=== PATIENT | female | born 1950 | race Caucasian/White ===

== ENCOUNTER → 2022-01-08 13:01 | Outpatient (BNVA) | payer MEDICAID, SELFPAY | PROVIDERS: PCP Internal Medicine; Visit Provider Internal Medicine Rheumatology | DX: M75.81 Other shoulder lesions, right shoulder (principal); M75.82 Other shoulder lesions, left shoulder; E11.9 Type 2 diabetes mellitus without complications; Z96.651 Presence of right artificial knee joint | CPT/HCPCS: 20610; 99212 ==

== ENCOUNTER 2022-05-14 14:29 | Outpatient (REF) | payer MEDICAID, SELFPAY ==
--- NOTE | ~2022-05-14 | XR_ITS ---
EXAMINATION: XR knee RT 3V, XR knee LT 3V CLINICAL INFORMATION: Reason for Exam M75.81 - Other shoulder lesions, right shoulder COMPARISON: None. TECHNIQUE: 4 views of the bilateral knees XR/XR knee LT 3V FINDINGS/IMPRESSION: Right knee: Status post right knee arthroplasty without evidence of hardware complication. Left knee: Severe osteoarthritis with medial compartment narrowing with bone on bone apposition. There is narrowing of the lateral and patellofemoral compartments and tricompartmental osteophytes.
--- NOTE | ~2022-05-14 | XR_ITS ---
EXAMINATION: XR knee RT 3V, XR knee LT 3V CLINICAL INFORMATION: Reason for Exam M75.81 - Other shoulder lesions, right shoulder COMPARISON: None. TECHNIQUE: 4 views of the bilateral knees XR/XR knee RT 3V FINDINGS/IMPRESSION: Right knee: Status post right knee arthroplasty without evidence of hardware complication. Left knee: Severe osteoarthritis with medial compartment narrowing with bone on bone apposition. There is narrowing of the lateral and patellofemoral compartments and tricompartmental osteophytes.
--- NOTE | ~2022-05-14 | XR_ITS ---
EXAMINATION: XR shoulder LT min 2V, XR shoulder RT min 2V CLINICAL INFORMATION: Reason for Exam M75.81 - Other shoulder lesions, right/ left shoulder COMPARISON: None. TECHNIQUE: 4 views of the bilateral shoulders XR/XR shoulder RT min 2V FINDINGS/IMPRESSION: Left shoulder: No acute fracture or dislocation. Mild diffuse osteopenia. No suspicious osseous lesion. Partially visualized cardiac pacemaker device. Right shoulder: No acute fracture or dislocation. There is mild elevation of the humeral head relative to glenoid fossa which may reflect underlying rotator cuff pathology. Osteoarthritis of the acromioclavicular joint.
--- NOTE | ~2022-05-14 | XR_ITS ---
EXAMINATION: XR shoulder LT min 2V, XR shoulder RT min 2V CLINICAL INFORMATION: Reason for Exam M75.81 - Other shoulder lesions, right/ left shoulder COMPARISON: None. TECHNIQUE: 4 views of the bilateral shoulders XR/XR shoulder LT min 2V FINDINGS/IMPRESSION: Left shoulder: No acute fracture or dislocation. Mild diffuse osteopenia. No suspicious osseous lesion. Partially visualized cardiac pacemaker device. Right shoulder: No acute fracture or dislocation. There is mild elevation of the humeral head relative to glenoid fossa which may reflect underlying rotator cuff pathology. Osteoarthritis of the acromioclavicular joint.
== END 2022-05-14 14:30 | disposition home or self-care (01) ==
LOC: HO.XRAY 14:29
PROVIDERS: PCP Internal Medicine; Visit Provider Internal Medicine Rheumatology
DX: M75.81 Other shoulder lesions, right shoulder (principal); M75.82 Other shoulder lesions, left shoulder; M17.12 Unilateral primary osteoarthritis, left knee; E11.9 Type 2 diabetes mellitus without complications; Z96.651 Presence of right artificial knee joint
CPT/HCPCS: 20610; 73030; 73562; 99212

== ENCOUNTER → 2022-09-10 08:37 | Outpatient (BNVA) | payer MEDICAID, SELFPAY | PROVIDERS: PCP Internal Medicine; Visit Provider Internal Medicine Rheumatology | DX: M17.12 Unilateral primary osteoarthritis, left knee (principal); M75.81 Other shoulder lesions, right shoulder; M75.82 Other shoulder lesions, left shoulder; Z96.651 Presence of right artificial knee joint | CPT/HCPCS: 20610; 99212 ==

== ENCOUNTER → 2022-12-27 08:02 | Outpatient (BNVA) | payer MEDICAID, SELFPAY | PROVIDERS: PCP Internal Medicine; Visit Provider Internal Medicine Rheumatology | DX: M17.12 Unilateral primary osteoarthritis, left knee (principal); M81.0 Age-related osteoporosis without current pathological fracture; M75.81 Other shoulder lesions, right shoulder; M75.82 Other shoulder lesions, left shoulder; Z96.651 Presence of right artificial knee joint | CPT/HCPCS: 20610; 99212 ==

== ENCOUNTER 2023-04-18 08:02 | Outpatient (AMB) | payer MEDICAID, SELFPAY ==
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
[2023-04-18 08:30] VITALS: BP 112/58; PULSE 73; O2SAT 100; BMI 37.9
== END 2023-04-18 09:07 | disposition home or self-care (01) ==
PROVIDERS: Visit Provider Psychiatry & Neurology Neurology
DX: F03.90 Unspecified dementia, unspecified severity, without behavioral disturbance, psychotic disturbance, mood disturbance, and anxiety (principal); R44.3 Hallucinations, unspecified
CPT/HCPCS: 99204

== ENCOUNTER → 2023-04-18 08:02 | Outpatient (BNVA) | payer MEDICAID, SELFPAY | PROVIDERS: Visit Provider Psychiatry & Neurology Neurology ==

== ENCOUNTER 2023-06-10 15:19 | Outpatient (AMB) | payer MEDICAID, SELFPAY ==
[2023-06-10 15:31] VITALS: BP 134/82; PULSE 70; TEMP 36.1; O2SAT 95; BMI 38.2
--- NOTE | 2023-06-10 15:31 | MHC.OFFVIS ---
Intake Vital Signs 06/10/23 15:31 Height 5 ft 2 in Weight 208 lb 15.971 oz BMI 38.2 BP 134/82 Blood Pressure Location Lt brachial Position Sitting Pulse 70 Pulse Source Pulse Oximeter Temp 97 F Temp Source Skin Pulse Oximetry (%) 95 Oxygen Delivery Method Room Air Intake Visit Reasons: OA Intake Note: Patient presents today to follow up on left knee OA. Requesting Harvey shoulder injections and left knee injection. Hospice Nurse Practitioner Required: No Accompanied by: Daughter Allergies acetaminophen [From Percocet] Allergy (Unknown, Verified 06/10/23 15:35) Itching oxycodone [From Percocet] Allergy (Unknown, Verified 06/10/23 15:35) Itching morphine Allergy (Intermediate, Uncoded 06/10/23 15:35) itching oxycodone Allergy (Intermediate, Uncoded 06/10/23 15:35) Itching tramadol Allergy (Intermediate, Uncoded 06/10/23 15:35) Itching Medication List - Last Reconciled 06/10/23 by Yuniel Tsang MD alendronate 70 mg PO QWEEK atorvastatin 20 mg PO DAILY blood sugar diagnostic (FreeStyle Lite Strips) As directed cyanocobalamin (vitamin B-12) 100 mcg IM Q4W diclofenac sodium 1% (Arthritis Pain (diclofenac)) 2 grams topical QID ergocalciferol (vitamin D2) 1,250 mcg PO QWEEK estradiol 0.01%(0.1mg/gram) grams vaginal famotidine (Pepcid) 20 mg PO BID ferrous sulfate 325 mg PO DAILY gabapentin 300 mg PO TID hydrocodone-acetaminophen 5-325 mg 1 tab PO Q6H PRN hydroxyzine HCl 25 mg PO TID PRN indapamide 2.5 mg PO BEDTIME lactulose 20 grams PO TID lancets (FreeStyle Lancets) As directed linaclotide (Linzess) 290 mcg PO DAILY losartan 25 mg PO DAILY loteprednol etabonate 0.5% (Lotemax) 1 appl ophthalmic (eye) QPM memantine (Namenda XR) 7 mg PO DAILY multivitamin with folic acid 400 mcg (Daily-Nohemy (with folic acid)) 1 tab PO DAILY ondansetron HCl 4 mg PO Q8H PRN pioglitazone (Actos) 30 mg PO BID potassium chloride ER 10 mEq PO BID quetiapine 25 mg PO BEDTIME repaglinide 2 mg PO BID sertraline 100 mg PO DAILY tobramycin-dexamethasone 0.3-0.1 % (TobraDex) ophthalmic (eye) TID tobramycin-dexamethasone 0.3-0.1 % 1 drp ophthalmic (eye) TID HPI HPI Comments History of Present Illness Details The patient returns with her daughter who translates. They indicate the patient has had a good benefit with the corticosteroid injections in the subacromial spaces delivered back in December. In the last few weeks she has had return of shoulder pain bilaterally. Pain is worse when she lies on the shoulders at night or lifts her arms overhead. She also has a right total knee replacement that still hurts her. The left knee however hurts worse where she has known osteoarthritis. At her last visit she had also received a corticosteroid injection in that joint. The 3 injections did not resulted in any significant adverse effects so she wants to have another set of injections today. There has been no recent injury. She is on medicine for dementia. The daughter is the proxy so she wants to sign for the injections. The patient also has significant back pain believed due to osteoarthritis particularly in the lumbar region. She has had attempts with corticosteroid injections and what sounds like were injection to ablate nerves. Neither of those were helpful. The back pain also limits her mobility. The dementia makes it difficult for her to be encouraged to walk. [facility] Medical History Hallucinations Dementia Pacemaker Tendonitis of both rotator cuffs Hypertension CKD (chronic kidney disease) Type 2 diabetes mellitus Osteoarthritis of knee Surgical History History of back surgery History of total right knee replacement (TKR) Family History Father Lung cancer Son Hypertension Brother Prostate cancer Brother Lung cancer Brother Myocardial infarction Social History Household Members: Family Housing: House Are you a primary home care scheduler to a significant other at home: No Do you presently have visiting nurse or other home services: No 75 years or older and lives alone: No Alcohol intake: never Patient Tobacco Use Status: Never used Tobacco e-Cigarette/Vaping Use: Never Used service: No Current occupational status: retired Review of Systems Const Details: Negative for appetite change, weight change, fever, chills, malaise and fatigue Card Details: Negative chest pain, edema and syncope Resp Details: Negative for SOB, cough and wheezing GI Details: Negative indigestion/heartburn, nausea, abdominal pain, bowel changes, diarrhea, constipation and bloody stool. Endo Details: Negative for polyuria and polydypsia Oleg/Lymph Details: Negative for excessive bruising or bleeding. Physical Exam Vital Signs: Last Vital Signs Temp 97 F 06/10/23 15:31 Pulse 70 06/10/23 15:31 BP 134/82 06/10/23 15:31 Pulse Ox 95 06/10/23 15:31 Oxygen Delivery Method Room Air 06/10/23 15:31 BMI result Body Mass Index 38.2 APPEARANCE: Patient in no acute distress EXTREMITIES: No edema, no calf tenderness, normal peripheral pulses. JOINT EXAM:?? Cervical Spine:.? Mild pain with extremes of normal range of motion. Slight cervical muscle tenderness. Thoracic Spine:.? No scoliosis.? No tenderness on palpation. Lumbar Spine:.? Alignment normal.? Full range of motion with?mild pain.?no tenderness. Chest Wall:.? No tenderness, swelling, increased warmth or erythema. Hands:.? Normal pain-free range of motion.? There is some mild tenderness at the base of the thumbs but no swelling is appreciated.? Other joints have no without tenderness, swelling, increased warmth or erythema. Able to make a full fist and has a good environmental protection geologist strength. Wrists:.? Normal pain-free range of motion without tenderness, swelling, increased warmth or erythema. Elbows:. Normal pain-free range of motion without tenderness, swelling, increased warmth or erythema. Shoulders:.?? Right:? Mild pain with abduction at 150 degrees or with more than 20 degrees of internal or external rotation.? Mild anterior tenderness with possibly some abductor weakness.? There is no swelling, supraclavicular adenopathy or axillary adenopathy.? Left: Mild pain with extremes of normal range of motion. There is also mild anterior tenderness but no swelling. There is no weakness, supraclavicular adenopathy, or axillary adenopathy. Hips:? Full range of motion without pain. Hip bursa:.? No tenderness. Knees: Right:? Mild pain with range of motion.? There is a well-healed anterior scar from her knee replacement.?? This looks like just a scar.? There is mild medial and lateral tenderness but no soft tissue swelling, redness or warmth.? Left:? There is mild pain with more than 90 degrees flexion or full extension.? There is mild to moderate medial and mild lateral tenderness with mild patellofemoral crepitus.? No effusion, redness or warmth.? Office Procedures Joint Injection/Drain Joint Injection/Drain Primary Site: right shoulder Secondary Site: right shoulder Injected: 40 mg of, 80 mg of, Kenalog, with 3 mL of and 1% plain lidocaine Coding Details: With the patient's consent the left knee was prepped with ChloraPrep and alcohol. The skin was anesthetized with 2 cc of 1% lidocaine. The knee was then injected with 40 mg of triamcinolone and 1 cc of I % lidocaine. The patient tolerated the procedure with no immediate adverse effects. With the patient's consent the left shoulder was prepped with ChloraPrep and alcohol. Under a topical ethyl chloride spray the left subacromial space was injected with 40 mg of triamcinolone and 1 cc of 1% lidocaine. The patient tolerated the procedure without any acute adverse effects. The right shoulder was prepped ChloraPrep and alcohol. The subacromial space was injected with 40 mg of triamcinolone and 1 cc of lidocaine. Patient tolerated the procedure well no apparent immediate side effects. 28151 - Large joint Procedure code (CPT) selection complete Assessment & Plan Assessment & Plan (1) History of total right knee replacement (TKR): Comment: 2018 Code(s): Z96.651 - Presence of right artificial knee joint (2) Osteoarthritis of left knee: Code(s): M17.12 - Unilateral primary osteoarthritis, left knee (3) Tendonitis of both rotator cuffs: Code(s): M75.81 - Other shoulder lesions, right shoulder; M75.82 - Other shoulder lesions, left shoulder Plan The patient again appears to be symptomatic with the bilateral shoulder pain from rotator cuff tendinitis and osteoarthritis in the left knee. It is unclear why the replaced knee remains painful. In general of course she has significant obesity and she is very deconditioned so it is not too surprising that she is using a walker at home. With the patient's consent the left knee was prepped with ChloraPrep and alcohol. The skin was anesthetized with 2 cc of 1% lidocaine. The knee was then injected with 40 mg of triamcinolone and 1 cc of I % lidocaine. The patient tolerated the procedure with no immediate adverse effects. With the patient's consent the left shoulder was prepped with ChloraPrep and alcohol. Under a topical ethyl chloride spray the left subacromial space was injected with 40 mg of triamcinolone and 1 cc of 1% lidocaine. The patient tolerated the procedure without any acute adverse effects. The right shoulder was prepped ChloraPrep and alcohol. The subacromial space was injected with 40 mg of triamcinolone and 1 cc of lidocaine. Patient tolerated the procedure well no apparent immediate side effects. Hopefully these will continue to help her symptoms. We would plan a return visit in about 5 months. Orders: Orders AMB Joint Injection/Aspiration Today M17.12 - Unilateral primary osteoarthritis, left knee, M75.81 - Other shoulder lesions, right shoulder, M75.82 - Other shoulder lesions, left shoulder Coding Level of Care Code Est Pt Level 3 (68837) Diagnoses History of total right knee replacement (TKR) Z96.651 Osteoarthritis of left knee M17.12 Tendonitis of both rotator cuffs M75.81; M75.82 CPT Codes Coding - 27974 Large joint: 20935 - Large joint ([id number])
== END 2023-06-10 16:24 | disposition home or self-care (01) ==
PROVIDERS: PCP Internal Medicine; Visit Provider Internal Medicine Rheumatology
DX: M17.12 Unilateral primary osteoarthritis, left knee (principal); Z96.651 Presence of right artificial knee joint; M75.81 Other shoulder lesions, right shoulder; M75.82 Other shoulder lesions, left shoulder
CPT/HCPCS: 20610; 99214

== ENCOUNTER → 2023-06-10 15:19 | Outpatient (BNVA) | payer MEDICAID, SELFPAY | PROVIDERS: PCP Internal Medicine; Visit Provider Internal Medicine Rheumatology | DX: M75.81 Other shoulder lesions, right shoulder (principal); M75.82 Other shoulder lesions, left shoulder; M17.12 Unilateral primary osteoarthritis, left knee; Z96.651 Presence of right artificial knee joint | CPT/HCPCS: 20610; 99212 ==

== ENCOUNTER 2023-08-02 14:57 | Outpatient (AMB) | payer MEDICAID, SELFPAY ==
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
[2023-08-02 15:07] VITALS: BP 114/74; PULSE 76; RESP 16; BMI 38.4
== END 2023-08-02 16:04 | disposition home or self-care (01) ==
PROVIDERS: PCP Internal Medicine; Visit Provider Nurse Practitioner Family
DX: F03.90 Unspecified dementia, unspecified severity, without behavioral disturbance, psychotic disturbance, mood disturbance, and anxiety (principal); R44.3 Hallucinations, unspecified
CPT/HCPCS: 99214

== ENCOUNTER → 2023-08-02 14:57 | Outpatient (BNVA) | payer MEDICAID, SELFPAY | PROVIDERS: PCP Internal Medicine; Visit Provider Nurse Practitioner Family | DX: F03.90 Unspecified dementia, unspecified severity, without behavioral disturbance, psychotic disturbance, mood disturbance, and anxiety (principal); R44.3 Hallucinations, unspecified | CPT/HCPCS: 99212 ==

== ENCOUNTER 2023-10-25 09:02 | Outpatient (AMB) | payer MEDICAID, SELFPAY ==
--- NOTE | 2023-10-25 09:10 | MHC.OFFVIS ---
Intake Vital Signs 10/25/23 09:20 Height 5 ft 2 in Weight 205 lb 8 oz BMI 37.6 BP 112/70 Blood Pressure Location Lt brachial Position Sitting Pulse 68 Pulse Source Pulse Oximeter Pulse Oximetry (%) 100 Oxygen Delivery Method Room Air Intake Visit Reasons: Follow up/ Confirmed w/Daughter Intake Note: Patient presents for F/U. Right after eating pt. gets dizziness, light headed and painful headache. Stops eating because of it. Allergies oxycodone [From Percocet] Allergy (Unknown, Verified 10/25/23 09:19) Itching morphine Allergy (Intermediate, Uncoded 08/02/23 15:06) itching oxycodone Allergy (Intermediate, Uncoded 08/02/23 15:06) Itching tramadol Allergy (Intermediate, Uncoded 08/02/23 15:06) Itching HPI HPI Comments History of Present Illness Details 73 y/o Yoruba female comes for follow up of dementia and hallucinations. Pt's daughter helped for ROS. Pt's daughter reports that patient's hallucination has improved with seroquel 25 mg qHS. She still has visual hallucination, once or twice a week, sees spiders, cats and people talking. Pt reports new headache that started few weeks ago, the headache always starts when she eats something, and can last couple of hours or whole day. She has pressure headache, it is associated with dizziness. Denies light or sound sensitivity. Pt lives with her daughter and need publisher assistant for all ADLs. Her daughter also reports that patient's movements including her gait is very slow and she has mild hand tremors. She also has chronic low back pain and is sees [facility] pain management. Pt is not physically or socially active, she usually sitting in her chair all day. Pt's daughter states that patient is very weak to do any physical activities. Brain MRI report reviewed. No evidence of acute/subacute infarction, hemorrhage or mass effect. Scattered foci of nonspecific T2 signal abnormality in the supratentorial white matter and trace are most likely related to mild chronic microvascular ischemic changes. Pt does not sleep well, wakes up frequently at night. She also uses hydroxyzine 25 mg TID. She is not physically active, laying on her bed all day. [facility] Medical History Hallucinations Dementia Pacemaker Tendonitis of both rotator cuffs Hypertension CKD (chronic kidney disease) Type 2 diabetes mellitus Osteoarthritis of knee Surgical History History of back surgery History of total right knee replacement (TKR) Family History Father Lung cancer Son Hypertension Brother Prostate cancer Brother Lung cancer Brother Myocardial infarction Social History Household Members: Family Housing: House Are you a primary healthcare prof to a significant other at home: No Do you presently have visiting nurse or other home services: No 75 years or older and lives alone: No Alcohol intake: never Patient Tobacco Use Status: Never used Tobacco e-Cigarette/Vaping Use: Never Used service: No Current occupational status: retired Physical Exam Vital Signs: Last Vital Signs Pulse 68 10/25/23 09:20 BP 112/70 10/25/23 09:20 Pulse Ox 100 10/25/23 09:20 Oxygen Delivery Method Room Air 10/25/23 09:20 BMI result Body Mass Index 37.6 Const General: cooperative Nutritional Appearance: obese Neuro Other: Mild decreased blink, facial expression right UE 2 + cog wheel rigidty Bradykinesia Decreased FFM and foot taps kathrin No tremors Hypophonia General: moves all extremities Cranial nerves: Yes Facial sensation intact/muscles of mastication intact, Yes Bilaterally intact EOM present, Yes Nystagmus not present, Yes Normal facial strength present and Yes Symmetric palate elevation present Cognition (Neuro): abnormal cognition Gait exam (Neuro): Antalgic gait present and Other gait observations present (slow with walker) Motor exam (neuro): 5/5 motor strength present throughout Deep tendon reflexes (DTR's): Right triceps reflex intensity grade: 3+, Left triceps reflex intensity grade: 3+, Rt Biceps (C5, C6): 3+, Left biceps reflex intensity grade: 3+, Right brachioradialis reflex intensity grade: 3+, Left brachioradialis reflex intensity grade: 3+, Right patellar reflex intensity grade: 1+ and Left patellar reflex intensity grade: 1+ Coordination: [id number] test normal Assessment & Plan Assessment & Plan (1) Dementia: Comment: mixed, vascular Code(s): F03.90 - Unspecified dementia, unspecified severity, without behavioral disturbance, psychotic disturbance, mood disturbance, and anxiety (2) Hallucinations: Code(s): R44.3 - Hallucinations, unspecified (3) Headache: Code(s): R51.9 - Headache, unspecified Plan Continue to take Quetiapine 25mg qhs for hallucination. Advised patient to try melatonin 3 mg qHS to promote sleep. Continue to take Namenda XR 7 mg qd. Pt has pace maker and CKD. Advised patient to increase physical, cognitive and social activities. The headache can be associated with low blood pressure when she eats. Advised patient to try drink a glass of water or juice when she eats. Will check labs for reversible causes of fatigue, and weakness. Orders: Orders Vitamin B12 and Folate 10/25/23 E11.9 - Type 2 diabetes mellitus without complications, F03.90 - Unspecified dementia, unspecified severity, without behavioral disturbance, psychotic disturbance, mood disturbance, and anxiety, R41.89 - Other symptoms and signs involving cognitive functions and awareness, R44.3 - Hallucinations, unspecified, R51.9 - Headache, unspecified, R53.1 - Weakness Comprehensive Met. Panel 10/25/23 E11.9 - Type 2 diabetes mellitus without complications, F03.90 - Unspecified dementia, unspecified severity, without behavioral disturbance, psychotic disturbance, mood disturbance, and anxiety, R41.89 - Other symptoms and signs involving cognitive functions and awareness, R44.3 - Hallucinations, unspecified, R51.9 - Headache, unspecified, R53.1 - Weakness TSH reflex Free T4 10/25/23 E11.9 - Type 2 diabetes mellitus without complications, F03.90 - Unspecified dementia, unspecified severity, without behavioral disturbance, psychotic disturbance, mood disturbance, and anxiety, R41.89 - Other symptoms and signs involving cognitive functions and awareness, R44.3 - Hallucinations, unspecified, R51.9 - Headache, unspecified, R53.1 - Weakness Complete Blood Count Auto Diff 10/25/23 E11.9 - Type 2 diabetes mellitus without complications, F03.90 - Unspecified dementia, unspecified severity, without behavioral disturbance, psychotic disturbance, mood disturbance, and anxiety, R41.89 - Other symptoms and signs involving cognitive functions and awareness, R44.3 - Hallucinations, unspecified, R51.9 - Headache, unspecified, R53.1 - Weakness Vitamin D 25-OH (D2 and D3) 10/25/23 E11.9 - Type 2 diabetes mellitus without complications, F03.90 - Unspecified dementia, unspecified severity, without behavioral disturbance, psychotic disturbance, mood disturbance, and anxiety, R41.89 - Other symptoms and signs involving cognitive functions and awareness, R44.3 - Hallucinations, unspecified, R51.9 - Headache, unspecified, R53.1 - Weakness Medications: New riboflavin (vitamin B2) 400 mg PO DAILY 30 days 30 tabs 3RF riboflavin (vitamin B2) 400 mg PO DAILY 90 days 90 tabs 3RF magnesium oxide 400 mg PO DAILY 90 days 90 tabs 3RF magnesium oxide 400 mg PO DAILY 30 days 30 tabs 3RF Changed From memantine 7 mg PO DAILY 30 days 30 ea 2RF To memantine 7 mg PO DAILY 90 days 90 ea 2RF From melatonin 3 mg PO BEDTIME 30 days 30 tabs 2RF sleep To melatonin 3 mg PO BEDTIME 90 days 90 tabs 2RF sleep From quetiapine 25 mg PO BEDTIME 30 tabs 6RF To quetiapine 25 mg PO BEDTIME 90 days 90 tabs 6RF Coding Level of Care Code Est Pt Level 4 (21382) Diagnoses Dementia F03.90 Hallucinations R44.3 Headache R51.9
[2023-10-25 09:20] VITALS: BP 112/70; PULSE 68; O2SAT 100; BMI 37.6
== END 2023-10-25 09:58 | disposition home or self-care (01) ==
PROVIDERS: PCP Internal Medicine; Visit Provider Nurse Practitioner Family
DX: F03.90 Unspecified dementia, unspecified severity, without behavioral disturbance, psychotic disturbance, mood disturbance, and anxiety (principal); R44.3 Hallucinations, unspecified; R51.9 Headache, unspecified
CPT/HCPCS: 99214

== ENCOUNTER → 2023-10-25 09:02 | Outpatient (BNVA) | payer MEDICAID, SELFPAY | PROVIDERS: PCP Internal Medicine; Visit Provider Nurse Practitioner Family | DX: F03.90 Unspecified dementia, unspecified severity, without behavioral disturbance, psychotic disturbance, mood disturbance, and anxiety (principal); R44.3 Hallucinations, unspecified; R51.9 Headache, unspecified; R53.1 Weakness; Z79.899 Other long term (current) drug therapy | CPT/HCPCS: 99212 ==

== ENCOUNTER 2023-11-14 15:14 | Outpatient (AMB) | payer MEDICAID, SELFPAY ==
--- NOTE | 2023-11-14 15:17 | MHC.OFFVIS ---
Vital Signs 11/14/23 15:28 Height 5 ft 2 in Weight 197 lb 12.074 oz BMI 36.2 BP 106/62 Blood Pressure Location Rt brachial Position Sitting Pulse 68 Pulse Source Pulse Oximeter Pulse Oximetry (%) 95 Oxygen Delivery Method Room Air Intake Visit Reasons: OA Intake Note: Patient last seen by Dr Tsang on 06/10/23 presents today with daughter Goldie for follow up. Patient has pain in bl legs, knees and arms. Lots of body weakness, using walker at home, also dropping things. Requesting injections traveling to [place] end of November and return in February. States she would get cortisone injections Q6M with Dr Tsang Filling Carrier Required: No Accompanied by: Daughter Goldie Allergies oxycodone [From Percocet] Allergy (Unknown, Verified 11/14/23 15:24) Itching morphine Allergy (Intermediate, Uncoded 11/14/23 15:24) itching oxycodone Allergy (Intermediate, Uncoded 11/14/23 15:24) Itching tramadol Allergy (Intermediate, Uncoded 11/14/23 15:24) Itching Medication List - Last Reconciled 11/14/23 by Nani Cornelius MD alendronate 70 mg PO QWEEK amitriptyline 25 mg PO BEDTIME ammonium lactate 12% appl topical BID atorvastatin 40 mg PO DAILY blood sugar diagnostic (FreeStyle Lite Strips) As directed clotrimazole 1% appl topical BID cyanocobalamin (vitamin B-12) 100 mcg IM Q4W diclofenac sodium 1% (Arthritis Pain (diclofenac)) 2 grams topical QID ergocalciferol (vitamin D2) 1,250 mcg PO QWEEK famotidine (Pepcid) 20 mg PO BID ferrous sulfate 325 mg PO DAILY gabapentin 300 mg PO TID hydrocodone-acetaminophen 5-325 mg 1 tab PO Q6H PRN hydroxyzine HCl 25 mg PO TID PRN indapamide 2.5 mg PO BEDTIME lactulose 20 grams PO TID lancets (FreeStyle Lancets) As directed lidocaine 5% 1 patch topical DAILY linaclotide (Linzess) 290 mcg PO DAILY losartan 25 mg PO DAILY loteprednol etabonate 0.5% (Lotemax) 1 appl ophthalmic (eye) QPM magnesium oxide 400 mg PO DAILY 90 days melatonin 3 mg PO BEDTIME 90 days memantine 7 mg PO DAILY 90 days multivitamin with folic acid 400 mcg (Daily-Nohemy (with folic acid)) 1 tab PO DAILY ondansetron HCl 4 mg PO Q8H PRN pioglitazone (Actos) 30 mg PO BID potassium chloride ER 10 mEq PO BID quetiapine 25 mg PO BEDTIME 90 days repaglinide 2 mg PO BID riboflavin (vitamin B2) 400 mg PO DAILY 90 days sertraline 100 mg PO BEDTIME tobramycin-dexamethasone 0.3-0.1 % (TobraDex) ophthalmic (eye) TID tobramycin-dexamethasone 0.3-0.1 % 1 drp ophthalmic (eye) TID HPI Comments Details: 73-year-old female with generalized osteoarthritis, osteoporosis returns for follow-up. This is her 1st visit with me. She used to follow-up with Dr. Tsang. Patient's daughter is her proxy and does most of the interview on behalf of her mother. She states that she gets cortisone injections by Dr. Tsang every 6 months or so unusually provide 2-3 months relief. Most recent visit she had bilateral shoulder and left knee cortisone injection. Right knee is replaced. Daughter states that patient was diagnosed with osteoporosis last year and was started on alendronate briefly by Dr. Tsang. She stated however that given patient's dementia and possible poor compliance she preferred to have injections. She was evaluated by civil engineer land development at [place] and received 1 dose of Prolia in April of 2023. She states however that her insurance changed and [place] is unable to continue with the Prolia injections. She wanted to check whether we might be able to arrange for Prolia injections at [place]. She is also requesting central shoulder and left knee corticosteroid injections Most recent history by Dr. Tsang 05/2023: The patient returns with her daughter who translates. They indicate the patient has had a good benefit with the corticosteroid injections in the subacromial spaces delivered back in December. In the last few weeks she has had return of shoulder pain bilaterally. Pain is worse when she lies on the shoulders at night or lifts her arms overhead. She also has a right total knee replacement that still hurts her. The left knee however hurts worse where she has known osteoarthritis. At her last visit she had also received a corticosteroid injection in that joint. The 3 injections did not resulted in any significant adverse effects so she wants to have another set of injections today. There has been no recent injury. She is on medicine for dementia. The daughter is the proxy so she wants to sign for the injections. The patient also has significant back pain believed due to osteoarthritis particularly in the lumbar region. She has had attempts with corticosteroid injections and what sounds like were injection to ablate nerves. Neither of those were helpful. The back pain also limits her mobility. The dementia makes it difficult for her to be encouraged to walk. [facility] Medical History Hallucinations Dementia Pacemaker Tendonitis of both rotator cuffs Hypertension CKD (chronic kidney disease) Type 2 diabetes mellitus Osteoarthritis of knee Surgical History History of back surgery History of total right knee replacement (TKR) Family History Father Lung cancer Son Hypertension Brother Prostate cancer Brother Lung cancer Brother Myocardial infarction Social History Household Members: Family Housing: House Are you a primary career development counselor to a significant other at home: No Do you presently have visiting nurse or other home services: No 75 years or older and lives alone: No Alcohol intake: never Patient Tobacco Use Status: Never used Tobacco e-Cigarette/Vaping Use: Never Used service: No Current occupational status: retired [place] [facility] [place] arthralgias, Reports limited range of motion and Reports stiffness Physical Exam Vital Signs: Last Vital Signs Pulse 68 11/14/23 15:28 BP 106/62 11/14/23 15:28 Pulse Ox 95 11/14/23 15:28 Oxygen Delivery Method Room Air 11/14/23 15:28 BMI result Body Mass Index 36.2 Const General: cooperative, healthy appearing and comfortable Nutritional Appearance: obese morbidly obese Limitations: wheelchair HEENT Head: Yes normocephalic and Yes atraumatic Resp Effort & Inspection: normal respiratory effort and able to speak in complete sentences Skin General skin exam: no rashes or lesions noted Extrem Other: Osteoarthritic changes of both hands Mild bilateral shoulder pain with full abduction Bilateral shoulder crepitus Unable to fully extend left knee Left knee pain with full flexion and extension No knee swelling or tenderness Office Procedures Joint Injection/Drain Joint Injection/Drain Primary Site: right shoulder Secondary Site: left shoulder Prep: site was prepped using sterile technique and ethochloride spray was applied Injected: 40 mg of, Kenalog and other (2 mL of 1% lidocaine) Approach Used: other Procedure: The patient tolerated the procedure well Coding Details: With daughters consent the right shoulder was prepped with ChloraPrep and alcohol. Under a topical ethyl chloride spray the right subacromial space was injected with 40 mg of triamcinolone and 2 cc of 1% lidocaine. Then, the left shoulder was prepped with ChloraPrep and alcohol. Under a topical ethyl chloride spray the left subacromial space was injected with 40 mg of triamcinolone and 2 cc of 1% lidocaine. Then, the left knee was prepped with ChloraPrep and alcohol. The skin was anesthetized with 2 cc of 1% lidocaine. The knee was then injected with 40 mg of triamcinolone and 2 cc of I % lidocaine. The patient tolerated the procedures with no immediate adverse effects. - Large joint (Large joint x3) Procedure code (CPT) selection complete Results Reviewed Results Reviewed: DEXA 11/2022 L-spine T-score-1.1? Right femoral neck T-score -3.0 Assessment & Plan Assessment & Plan (1) Osteoarthritis of left knee: Code(s): M17.12 - Unilateral primary osteoarthritis, left knee Category: Medical Qualifiers: Osteoarthritis type: primary Qualified Code(s): M17.12 - Unilateral primary osteoarthritis, left knee Plan: This is a 73-year-old female with generalized osteoarthritis and osteoporosis who presents for follow-up. This is her 1st visit with me. She used to follow-up with Dr. Tsang. She presents with her daughter who is her healthcare proxy. Daughter states that she would get particular cortisone injections by Dr. Tsang periodically, around every 6 months. The usually provide 2-3 months relief. Today there is requesting bilateral shoulder and left knee injections. With daughters consent, bilateral shoulders and left knee was injected with Kenalog today. Follow-up in 6 months (2) History of total right knee replacement (TKR): Comment: 2017 Code(s): Z96.651 - Presence of right artificial knee joint Category: Surgical (3) Osteoarthritis of shoulders, bilateral: Code(s): M19.011 - Primary osteoarthritis, right shoulder; M19.012 - Primary osteoarthritis, left shoulder Category: Medical Qualifiers: Osteoarthritis type: primary Qualified Code(s): M19.011 - Primary osteoarthritis, right shoulder; M19.012 - Primary osteoarthritis, left shoulder Plan: As above (4) Osteoporosis: Comment: 11/2022 DEXA at [facility] T scores: Hip -3.0, LS spine -1.1 Code(s): M81.0 - Age-related osteoporosis without current pathological fracture Category: Medical Qualifiers: Osteoporosis type: age-related Presence of current pathological fracture: without current pathological fracture Qualified Code(s): M81.0 - Age-related osteoporosis without current pathological fracture Plan: Patient has history of osteoporosis. Due to patient's dementia and poor compliance, patient's daughter preferred that patient gets an injectable medication rather than alendronate. Patient was evaluated by civil engineer land development at [place] and received 1 dose of Prolia. Per daughter, after was patient's insurance changed and she was no longer able to get the Prolia injection done at [place]. She wonders whether Prolia injections can be arranged in our facility. We will look into authorization for Prolia. Plan I spent 55 minutes reviewing patient's chart, reviewing her [place] chart, evaluating patient, counseling patient and documenting in the chart Orders: Orders AMB Joint Injection/Aspiration Today M17.12 - Unilateral primary osteoarthritis, left knee, M19.011 - Primary osteoarthritis, right shoulder, M19.012 - Primary osteoarthritis, left shoulder
[2023-11-14 15:28] VITALS: BP 106/62; PULSE 68; O2SAT 95; BMI 36.2
== END 2023-11-14 16:09 | disposition home or self-care (01) ==
PROVIDERS: PCP Internal Medicine; Visit Provider Student in an Organized Health Care Education/Training Program
DX: M17.12 Unilateral primary osteoarthritis, left knee (principal); Z96.651 Presence of right artificial knee joint; M19.011 Primary osteoarthritis, right shoulder; M19.012 Primary osteoarthritis, left shoulder; M81.0 Age-related osteoporosis without current pathological fracture
CPT/HCPCS: 20610; 99215

== ENCOUNTER → 2023-11-14 | Outpatient (BNVA) | payer MEDICAID, SELFPAY | PROVIDERS: PCP Internal Medicine; Visit Provider Student in an Organized Health Care Education/Training Program | DX: M17.12 Unilateral primary osteoarthritis, left knee (principal); M81.0 Age-related osteoporosis without current pathological fracture; M19.011 Primary osteoarthritis, right shoulder; M19.012 Primary osteoarthritis, left shoulder; Z96.651 Presence of right artificial knee joint | CPT/HCPCS: 99202; 20610; 99212 ==

== ENCOUNTER 2023-12-18 12:40 | Outpatient (REF) | payer MEDICAID, SELFPAY ==
[2023-12-18 13:04] LABS: MANUAL DIFF FLAG NO
[2023-12-18 14:04] LABS: Basophils Percent Auto 0.1 % (0-2); Eosinophils Percent Auto 0.2 % (0-4); Hematocrit 38.3 % (37.0-47.0); Hemoglobin 12.8 g/dl (12.0-16.0); Imm Gran Abs Auto 0.05 X10*3/uL (0.00-0.03); Imm Gran Pct Auto 0.5 % (0.0-0.4); Lymphocytes Absolute Auto 2.4 X10*3/uL (1.2-4.9); Lymphocytes Percent Auto 24.3 % (20-40); Mean Corpuscular HGB Conc 33.4 g/dl (31.0-35.0); Mean Corpuscular Hemoglobin 31.1 pg (27.0-33.0); Mean Corpuscular Volume 93.2 fL (80.0-98.0); Mean Platelet Volume 10.1 fL (9.4-12.3); Monocytes Absolute Auto 0.5 X10*3/uL (0.1-1.2); Monocytes Percent Auto 4.6 % (2-11); Neutrophils Percent Auto 70.3 % (45-73); Platelet Count 254 X10*3/uL (160-400); Red Blood Count 4.11 X10*6/uL (4.20-5.50); Red Cell Distribution Width 12.9 % (11.0-16.0)
[2023-12-18 14:37] LABS: Anion Gap 11 (12-20); Blood Urea Nitrogen 29 mg/dL (9-16); Calcium 8.3 mg/dL (8.4-10.2); Carbon Dioxide 30 mmol/L (22-29); Chloride 102 mmol/L (96-108); Estimated Glomerular Filt Rate 52; Glucose Random 100 mg/dL (60-115); Potassium 3.8 mmol/L (3.3-5.1); Sodium 139 mmol/L (135-145)
[2023-12-18 14:57] LABS: Thyroid Stimulating Hormone 0.29 uIU/mL (0.32-4.0); Vitamin D 25-OH Total 18.7 ng/mL (>30)
[2023-12-18 15:05] LABS: Folate 9.6 ng/mL (> or = 4.0); Vitamin B12 551 pg/mL (200-900)
== END 2023-12-18 12:41 | disposition home or self-care (01) ==
LOC: HO.LAB 12:40
PROVIDERS: PCP Internal Medicine; Visit Provider Psychiatry & Neurology Neurology
DX: G30.9 Alzheimer's disease, unspecified (principal)
CPT/HCPCS: 36415; 80048; 82306; 82607; 82746; 84436; 84443; 85025

== ENCOUNTER 2024-03-23 10:13 | Outpatient (REF) | payer MEDICAID, SELFPAY ==
[2024-03-23 10:41] LABS: MANUAL DIFF FLAG NO
[2024-03-23 10:57] LABS: Basophils Absolute Auto 0.1 X10*3/uL (0.0-0.2); Eosinophils Absolute Auto 0.2 X10*3/uL (0.0-0.4); Eosinophils Percent Auto 2.3 % (0-4); Hematocrit 36.6 % (37.0-47.0); Hemoglobin 12.1 g/dl (12.0-16.0); Imm Gran Abs Auto 0.01 X10*3/uL (0.00-0.03); Imm Gran Pct Auto 0.1 % (0.0-0.4); Lymphocytes Absolute Auto 2.8 X10*3/uL (1.2-4.9); Mean Corpuscular HGB Conc 33.1 g/dl (31.0-35.0); Mean Corpuscular Hemoglobin 31.3 pg (27.0-33.0); Mean Corpuscular Volume 94.6 fL (80.0-98.0); Mean Platelet Volume 10.1 fL (9.4-12.3); Monocytes Absolute Auto 0.4 X10*3/uL (0.1-1.2); Monocytes Percent Auto 5.6 % (2-11); Neutrophils Absolute Auto 3.9 x10*3/uL (2.0-8.3); Platelet Count 241 X10*3/uL (160-400); Red Blood Count 3.87 X10*6/uL (4.20-5.50); Red Cell Distribution Width 12.6 % (11.0-16.0); White Blood Count 7.4 X10*3/uL (4.8-10.8)
[2024-03-23 11:46] LABS: TSH reflex Free T4 0.18 uIU/mL (0.32-4.0)
[2024-03-23 11:48] LABS: Alanine Aminotransferase 9 U/L (0-31); Albumin Level 3.6 g/dL (3.5-5.0); Alkaline Phosphatase 59 U/L (39-117); Anion Gap 12 (12-20); Aspartate Amino Transferase 15 U/L (5-31); Bilirubin Total 0.5 mg/dL (0.0-1.0); Blood Urea Nitrogen 11 mg/dL (9-16); Carbon Dioxide 27 mmol/L (22-29); Chloride 107 mmol/L (96-108); Estimated Glomerular Filt Rate 57; Glucose Random 89 mg/dL (60-115); Potassium 3.4 mmol/L (3.3-5.1); Sodium 143 mmol/L (135-145); Total Protein 6.7 g/dL (6.5-8.0); Vitamin D 25-OH Total 14.1 ng/mL (>30)
[2024-03-23 12:01] LABS: Folate 5.9 ng/mL (> or = 4.0); Vitamin B12 617 pg/mL (200-900)
[2024-03-23 12:16] LABS: Free T4 (Free Thyroxine) 1.21 ng/dL (0.71-1.85)
[2024-03-27 15:13] LABS: Vitamin D 25-OH, D2 17 ng/mL; Vitamin D 25-OH, D3 5 ng/mL; Vitamin D 25-OH, Total 22 ng/mL (30-100)
== END 2024-03-23 10:14 | disposition home or self-care (01) ==
LOC: HO.LAB 10:13
PROVIDERS: Nurse Practitioner Family; PCP Internal Medicine; Visit Provider Student in an Organized Health Care Education/Training Program
DX: F03.90 Unspecified dementia, unspecified severity, without behavioral disturbance, psychotic disturbance, mood disturbance, and anxiety (principal); E55.9 Vitamin D deficiency, unspecified; R44.3 Hallucinations, unspecified; R41.89 Other symptoms and signs involving cognitive functions and awareness; E11.9 Type 2 diabetes mellitus without complications; R53.1 Weakness; R51.9 Headache, unspecified
CPT/HCPCS: 36415; 80053; 82306; 82607; 82746; 84439; 84443; 85025

== ENCOUNTER 2024-03-24 13:09 | Outpatient (AMB) | payer MEDICAID, SELFPAY ==
--- NOTE | 2024-03-24 13:38 | AM.OFFVISNUR ---
Intake Visit Reasons: Prolia injection Allergies oxycodone [From Percocet] Allergy (Unknown, Verified 11/14/23 15:24) Itching morphine Allergy (Intermediate, Uncoded 11/14/23 15:24) itching oxycodone Allergy (Intermediate, Uncoded 11/14/23 15:24) Itching tramadol Allergy (Intermediate, Uncoded 11/14/23 15:24) Itching Office Meds Prolia 60 mg/mL subcutaneous syringe Performing Provider: Nani Cornelius MD Performing Location[place] [facility] [place] [facility] Administered by: Angelica Peterson RN on 03/24/24 13:38 Dose Route Admin Location Dispensed Lot Number Expiration Date [facility] [place] Protector Plate Attacher 60 mg subcut left upper extremity 1 mL [id number] 06/27/26 21743-698-60 AMGEN Comments: Daughter signed declination of film examiner services as she interpreted for visit. Consent form signed by daughter. Pt tolerated injection well and denies any previous problems with prolia injection. Assessment & Plan Assessment & Plan Orders: Orders AMB Denosumab Injection Practice Supplied Today M81.0 - Age-related osteoporosis without current pathological fracture Medications: New Prolia (denosumab) 60 mg subcut ONCE 1 mL 0RF NS M81.0 - Age-related osteoporosis without current pathological fracture
== END 2024-03-24 13:37 | disposition home or self-care (01) ==
PROVIDERS: PCP Internal Medicine
DX: M81.0 Age-related osteoporosis without current pathological fracture (principal)

== ENCOUNTER → 2024-03-24 13:09 | Outpatient (BNVA) | payer MEDICAID, SELFPAY | PROVIDERS: PCP Internal Medicine | DX: M81.0 Age-related osteoporosis without current pathological fracture (principal) | CPT/HCPCS: 96372; J0897 ==

== ENCOUNTER 2024-04-22 15:24 | Outpatient (AMB) | payer MEDICAID, SELFPAY ==
[2024-04-22 15:26] VITALS: BP 126/74; PULSE 73; O2SAT 98; BMI 35.8
--- NOTE | 2024-04-22 15:26 | A.OFFVIS_ITS ---
Vital Signs 04/22/24 15:26 Height 5 ft 2 in Weight 195 lb 12.328 oz BMI 35.8 BP 126/74 Blood Pressure Location Lt brachial Position Sitting Pulse 73 Pulse Source Pulse Oximeter Pulse Oximetry (%) 98 Oxygen Delivery Method Room Air Intake Visit Reasons: joint injection/osteoporosis Intake Note: Patient is here for injection in both shoulders and left knee. Railroad Car Checker Required: Yes Railroad Car Checker Services: Railroad Car Checker Offered & Declined Railroad Car Checker Name: Patient daughter is interpret Allergies oxycodone [From Percocet] Allergy (Unknown, Verified 11/14/23 15:24) Itching morphine Allergy (Intermediate, Uncoded 04/22/24 15:31) itching oxycodone Allergy (Intermediate, Uncoded 04/22/24 15:31) Itching tramadol Allergy (Intermediate, Uncoded 04/22/24 15:31) Itching Medication List - Last Reconciled 04/22/24 by Nani Cornelius MD amitriptyline 25 mg PO BEDTIME ammonium lactate 12% appl topical BID atorvastatin 40 mg PO DAILY blood sugar diagnostic (FreeStyle Lite Strips) As directed clotrimazole 1% appl topical BID cyanocobalamin (vitamin B-12) 100 mcg IM Q4W diclofenac sodium 1% (Arthritis Pain (diclofenac)) 2 grams topical QID ergocalciferol (vitamin D2) 1,250 mcg PO QWEEK famotidine (Pepcid) 20 mg PO BID ferrous sulfate 325 mg PO DAILY gabapentin 300 mg PO TID hydrocodone-acetaminophen 5-325 mg 1 tab PO Q6H PRN hydroxyzine HCl 25 mg PO TID PRN indapamide 2.5 mg PO BEDTIME lactulose 20 grams PO TID lancets (FreeStyle Lancets) As directed lidocaine 5% 1 patch topical DAILY linaclotide (Linzess) 290 mcg PO DAILY losartan 25 mg PO DAILY loteprednol etabonate 0.5% (Lotemax) 1 appl ophthalmic (eye) QPM magnesium oxide 400 mg PO DAILY 90 days melatonin 3 mg PO BEDTIME 90 days memantine 7 mg PO DAILY 90 days multivitamin with folic acid 400 mcg (Daily-Nohemy (with folic acid)) 1 tab PO DAILY ondansetron HCl 4 mg PO Q8H PRN pioglitazone (Actos) 30 mg PO BID potassium chloride ER 10 mEq PO BID quetiapine 25 mg PO BEDTIME 90 days repaglinide 2 mg PO BID riboflavin (vitamin B2) 400 mg PO DAILY 90 days sertraline 100 mg PO BEDTIME tobramycin-dexamethasone 0.3-0.1 % (TobraDex) ophthalmic (eye) TID tobramycin-dexamethasone 0.3-0.1 % 1 drp ophthalmic (eye) TID HPI Comments Details: 74-year-old female with generalized osteoarthritis, osteoporosis returns for follow-up. She presents with her daughter. She states that patient has not been feeling well. She has been having worsening bilateral shoulder pain. She states that the injections last approximately 4 months. She is requesting bilateral shoulder and left knee cortisone injections. She received the Prolia injection last month and it was uneventful. Most recent history by Dr. Tsang 05/2023: The patient returns with her daughter who translates. They indicate the patient has had a good benefit with the corticosteroid injections in the subacromial spaces delivered back in December. In the last few weeks she has had return of shoulder pain bilaterally. Pain is worse when she lies on the shoulders at night or lifts her arms overhead. She also has a right total knee replacement that still hurts her. The left knee however hurts worse where she has known osteoarthritis. At her last visit she had also received a corticosteroid injection in that joint. The 3 injections did not resulted in any significant adverse effects so she wants to have another set of injections today. There has been no recent injury. She is on medicine for dementia. The daughter is the proxy so she wants to sign for the injections. The patient also has significant back pain believed due to osteoarthritis particularly in the lumbar region. She has had attempts with corticosteroid injections and what sounds like were injection to ablate nerves. Neither of those were helpful. The back pain also limits her mobility. The dementia makes it difficult for her to be encouraged to walk. [facility] Medical History Hallucinations Dementia Pacemaker Tendonitis of both rotator cuffs Hypertension CKD (chronic kidney disease) Type 2 diabetes mellitus Osteoarthritis of knee Surgical History History of back surgery History of total right knee replacement (TKR) Family History Father Lung cancer Son Hypertension Brother Prostate cancer Brother Lung cancer Brother Myocardial infarction Social History Household Members: Family Housing: House Are you a primary med care manager to a significant other at home: No Do you presently have visiting nurse or other home services: No 75 years or older and lives alone: No Alcohol intake: never Patient Tobacco Use Status: Never used Tobacco e-Cigarette/Vaping Use: Never Used service: No Current occupational status: retired Review of Systems Musc Reports arthralgias, Reports limited range of motion and Reports stiffness Physical Exam Vital Signs: BMI result Body Mass Index 35.8 Const General: cooperative, healthy appearing and comfortable Nutritional Appearance: obese morbidly obese Limitations: wheelchair HEENT Head: Yes normocephalic and Yes atraumatic Resp Effort & Inspection: normal respiratory effort and able to speak in complete sentences Skin General skin exam: no rashes or lesions noted Extrem Other: Osteoarthritic changes of both hands Mild bilateral shoulder pain with full abduction Bilateral shoulder crepitus Unable to fully extend left knee Left knee pain with full flexion and extension No knee swelling or tenderness Office Procedures Joint Injection/Aspiration Joint Injection/Aspiration Details: Left knee Primary Site: right shoulder Secondary Site: left shoulder Coding Details: With the patient's consent the left shoulder was prepped with ChloraPrep and alcohol. Under a topical ethyl chloride spray the left subacromial space was injected with 40 mg of triamcinolone and 1 cc of 1% lidocaine. Then, The right shoulder was prepped ChloraPrep and alcohol. The subacromial space was injected with 40 mg of triamcinolone and 1 cc of lidocaine. Then, the left knee was prepped with ChloraPrep and alcohol. The skin was anesthetized with 2 cc of 1% lidocaine. The knee was then injected with 40 mg of triamcinolone and 1 cc of I % lidocaine. The patient tolerated all 3 procedures well with no apparent immediate adverse events - Large joint Procedure code (CPT) selection complete (Large joint x3) Results Reviewed Results Reviewed: DEXA 11/2022 L-spine T-score-1.1? Right femoral neck T-score -3.0 Assessment & Plan Assessment & Plan (1) Osteoarthritis of left knee: Code(s): M17.12 - Unilateral primary osteoarthritis, left knee Category: Medical Qualifiers: Osteoarthritis type: primary Qualified Code(s): M17.12 - Unilateral primary osteoarthritis, left knee Plan: This is a 73-year-old female with generalized osteoarthritis and osteoporosis who presents for follow-up. She presents with her daughter who is her healthcare proxy. Patient receives bilateral shoulder cortisone injections and left knee done injections periodically. She is s/p right knee replacement around 2018. Right knee continues to be painful. She is not interested in doing left knee replacement. She has history of right shoulder fracture years ago with poor healing. Patient was not interested in any shoulder surgery Today patient is requesting bilateral shoulder and left knee injection. With patient's consent bilateral shoulder and left knee intra-articular cortisone injections were done. Follow-up in 4 months (2) History of total right knee replacement (TKR): Comment: 2017 Code(s): Z96.651 - Presence of right artificial knee joint Category: Surgical (3) Osteoarthritis of shoulders, bilateral: Code(s): M19.011 - Primary osteoarthritis, right shoulder; M19.012 - Primary osteoarthritis, left shoulder Category: Medical Qualifiers: Osteoarthritis type: primary Qualified Code(s): M19.011 - Primary osteoarthritis, right shoulder; M19.012 - Primary osteoarthritis, left shoulder Plan: As above (4) Osteoporosis: Comment: 11/2022 DEXA at [facility] T scores: Hip -3.0, LS spine -1.1 Prolia started 07/2023 Code(s): M81.0 - Age-related osteoporosis without current pathological fracture Category: Medical Qualifiers: Osteoporosis type: age-related Presence of current pathological fracture: without current pathological fracture Qualified Code(s): M81.0 - Age- related osteoporosis without current pathological fracture Plan: Patient has history of osteoporosis. Due to patient's dementia and poor compliance, patient's daughter preferred that patient gets an injectable medication rather than alendronate. Received 2nd Prolia injection 02/2024. Injection was uneventful. Continue with Prolia injections q.6 months (5) Lumbar degenerative disc disease: Code(s): M51.36 - Other intervertebral disc degeneration, lumbar region Category: Medical Plan: She history of spinal osteoarthritis. Per daughter patient had a stimulator. The stimulator broke. Patient has been following up with pain management, she received multiple injections without relief. She would like another opinion. Referred patient to pain management at [facility] [place] Plan I spent 30 minutes reviewing patient's chart, evaluating patient, ordering diagnostic workup, counseling patient and documenting in the chart Orders: Orders AMB Joint Injection/Aspiration Today M17.12 - Unilateral primary osteoarthritis, left knee, M19.011 - Primary osteoarthritis, right shoulder, M19.012 - Primary osteoarthritis, left shoulder Vitamin D 25-OH Total 6 Months Z13.21 - Encounter for screening for nutritional disorder Basic Metabolic Panel 6 Months M81.0 - Age-related osteoporosis without current pathological fracture Referrals Pain Management Referral M51.36 - Other intervertebral disc degeneration, lumbar region Coding Level of Care Code Est Pt Level 4 (78089) Diagnoses Primary osteoarthritis of left knee M17.12 Osteoarthritis type: primary History of total right knee replacement (TKR) Z96.651 Primary osteoarthritis of both shoulders M19.011; M19.012 Osteoarthritis type: primary Age-related osteoporosis without current pathological fracture M81.0 Osteoporosis type: age-related Presence of current pathological fracture: without current pathological fracture Lumbar degenerative disc disease M51.36 CPT Codes Coding - 36976 Large joint: 62195 - Large joint ([id number])
== END 2024-04-22 16:06 | disposition home or self-care (01) ==
PROVIDERS: PCP Internal Medicine; Visit Provider Student in an Organized Health Care Education/Training Program
DX: M17.12 Unilateral primary osteoarthritis, left knee (principal); Z96.651 Presence of right artificial knee joint; M19.011 Primary osteoarthritis, right shoulder; M19.012 Primary osteoarthritis, left shoulder; M81.0 Age-related osteoporosis without current pathological fracture; M51.36 Other intervertebral disc degeneration, lumbar region
CPT/HCPCS: 20610; 99214

== ENCOUNTER → 2024-04-22 15:24 | Outpatient (BNVA) | payer MEDICAID, SELFPAY | PROVIDERS: PCP Internal Medicine; Visit Provider Student in an Organized Health Care Education/Training Program | DX: M81.0 Age-related osteoporosis without current pathological fracture (principal); M17.12 Unilateral primary osteoarthritis, left knee; M19.011 Primary osteoarthritis, right shoulder; M19.012 Primary osteoarthritis, left shoulder; M51.36 Other intervertebral disc degeneration, lumbar region; Z96.651 Presence of right artificial knee joint | CPT/HCPCS: 20610; 99212 ==

== ENCOUNTER 2024-05-18 14:00 | Outpatient (AMB) | payer MEDICAID, SELFPAY ==
--- NOTE | 2024-05-18 14:00 | A.OFFVIS_ITS ---
Vital Signs 05/18/24 14:05 Height 5 ft 2 in Weight 195 lb BMI 35.7 BP 112/60 Blood Pressure Location Lt brachial Position Sitting Pulse 88 Pulse Source Pulse Oximeter Pulse Oximetry (%) 98 Oxygen Delivery Method Room Air Intake Visit Reasons: 6 mo f/u Intake Note: Patient presents in office for a 6 mo fu-Dementia. Patients daughter states that it is getting harder for mom to communicate and understanding. She also has difficulty walking. Freelance Patternmaker Required: Yes Freelance Patternmaker Language: Haitian Freelance Patternmaker Services: Freelance Patternmaker Offered & Declined ([facility] turbine technician services refused, pt accompanied by daughter who will interpret. ) Freelance Patternmaker Name: Goldie- Daughter Information Interpreted: clinical only Accompanied by: Daughter Allergies oxycodone [From Percocet] Allergy (Unknown, Verified 11/14/23 15:24) Itching morphine Allergy (Intermediate, Uncoded 04/22/24 15:31) itching oxycodone Allergy (Intermediate, Uncoded 04/22/24 15:31) Itching tramadol Allergy (Intermediate, Uncoded 04/22/24 15:31) Itching Medication List - Last Reconciled 05/18/24 by Luz Becerril MD amitriptyline 25 mg PO BEDTIME ammonium lactate 12% appl topical BID atorvastatin 40 mg PO DAILY blood sugar diagnostic (FreeStyle Lite Strips) As directed bumetanide 1 mg PO Q OTHER DAY clotrimazole 1% appl topical BID cyanocobalamin (vitamin B-12) 100 mcg IM Q4W diclofenac sodium 1% (Arthritis Pain (diclofenac)) 2 grams topical QID ergocalciferol (vitamin D2) 1,250 mcg PO QWEEK famotidine (Pepcid) 20 mg PO BID ferrous sulfate 325 mg PO DAILY gabapentin 300 mg PO TID hydrocodone-acetaminophen 5-325 mg 1 tab PO Q6H PRN hydroxyzine HCl 25 mg PO TID PRN indapamide 2.5 mg PO BEDTIME lactulose 20 grams PO TID lancets (FreeStyle Lancets) As directed lidocaine 5% 1 patch topical DAILY linaclotide (Linzess) 290 mcg PO DAILY losartan 25 mg PO DAILY loteprednol etabonate 0.5% (Lotemax) 1 appl ophthalmic (eye) QPM magnesium oxide 400 mg PO DAILY 90 days melatonin 3 mg PO BEDTIME 90 days memantine 10 mg PO BID multivitamin with folic acid 400 mcg (Daily-Nohemy (with folic acid)) 1 tab PO DAILY ondansetron HCl 4 mg PO Q8H PRN pioglitazone (Actos) 30 mg PO BID potassium chloride ER 10 mEq PO BID quetiapine 25 mg PO BEDTIME 90 days repaglinide 2 mg PO BID riboflavin (vitamin B2) 400 mg PO DAILY 90 days sertraline 100 mg PO BEDTIME tobramycin-dexamethasone 0.3-0.1 % (TobraDex) ophthalmic (eye) TID tobramycin-dexamethasone 0.3-0.1 % 1 drp ophthalmic (eye) TID zolmitriptan take 1 tab at onset of headache; if no relief, may repeat 1 tab after at least 2 hrs; max = 2 tabs/24 hrs PO HPI Comments Details: 73 y/o Haitian female comes for follow up of dementia and hallucinations. Pt's daughter helped for ROS. Pt's daughter reports that patient's hallucination has improved with seroquel 25 mg qHS. She still has visual hallucination, once or twice a week, sees spiders, cats and people talking. she sleeps good. Pt reports new headache that started few weeks ago, the headache always starts when she eats something, and can last couple of hours or whole day. She has pressure headache, it is associated with dizziness. Denies light or sound sensitivity. Pt lives with her daughter and need investment sales assistant for all ADLs. Her daughter also reports that patient's movements including her gait is very slow and she has mild hand tremors. She also has chronic low back pain and is sees [facility] pain management. Pt is not physically or socially active, she usually sitting in her chair all day. Pt's daughter states that patient is very weak to do any physical activities. Brain MRI report reviewed. No evidence of acute/subacute infarction, hemorrhage or mass effect. Scattered foci of nonspecific T2 signal abnormality in the supratentorial white matter and trace are most likely related to mild chronic microvascular ischemic changes. [facility] Medical History Hallucinations Dementia Pacemaker Tendonitis of both rotator cuffs Hypertension CKD (chronic kidney disease) Type 2 diabetes mellitus Osteoarthritis of knee Surgical History History of back surgery History of total right knee replacement (TKR) Family History Father Lung cancer Son Hypertension Brother Prostate cancer Brother Lung cancer Brother Myocardial infarction Social History Household Members: Family Housing: House Are you a primary wound care coordinator to a significant other at home: No Do you presently have visiting nurse or other home services: No 75 years or older and lives alone: No Alcohol intake: never Patient Tobacco Use Status: Never used Tobacco e-Cigarette/Vaping Use: Never Used service: No Current occupational status: retired Physical Exam Vital Signs: Last Vital Signs Pulse 88 05/18/24 14:05 BP 112/60 05/18/24 14:05 Pulse Ox 98 05/18/24 14:05 Oxygen Delivery Method Room Air 05/18/24 14:05 BMI result Body Mass Index 35.7 Const General: cooperative Nutritional Appearance: obese Neuro Other: Mild decreased blink, facial expression right UE 2 + cog wheel rigidty Bradykinesia Decreased FFM and foot taps kathrin No tremors Hypophonia General: moves all extremities Cranial nerves: Yes Facial sensation intact/muscles of mastication intact, Yes Bilaterally intact EOM present, Yes Nystagmus not present, Yes Normal facial strength present and Yes Symmetric palate elevation present Cognition (Neuro): abnormal cognition Gait exam (Neuro): Antalgic gait present and Other gait observations present (slow with walker) Motor exam (neuro): 5/5 motor strength present throughout Coordination: [id number] test normal Assessment & Plan Assessment & Plan (1) Dementia: Comment: mixed, vascular Code(s): F03.90 - Unspecified dementia, unspecified severity, without behavioral disturbance, psychotic disturbance, mood disturbance, and anxiety Category: Medical (2) Hallucinations: Code(s): R44.3 - Hallucinations, unspecified Category: Medical (3) Headache: Code(s): R51.9 - Headache, unspecified Category: Medical Plan Increase Quetiapine 25mg 1 1/2 tabs qhs for hallucination. Advised patient to try melatonin 3 mg qHS to promote sleep. memantine 10mg bid Advised patient to increase physical, cognitive and social activities. The headache can be associated with low blood pressure when she eats. Advised patient to try drink a glass of water or juice when she eats. Medications: New sertraline 100 mg PO BEDTIME 30 tabs 6RF Changed From quetiapine 25 mg PO BEDTIME 90 days 90 tabs 6RF To quetiapine 1.5tabs qhs orally bedtime; 90 days 135 tabs 6RF Coding Level of Care Code Est Pt Level 4 (55972) Complex EM visit Add On G2211 Diagnoses Dementia F03.90 Hallucinations R44.3 Headache R51.9
[2024-05-18 14:05] VITALS: BP 112/60; PULSE 88; O2SAT 98; BMI 35.7
== END 2024-05-18 15:08 | disposition home or self-care (01) ==
PROVIDERS: PCP Internal Medicine; Visit Provider Psychiatry & Neurology Neurology
DX: F03.90 Unspecified dementia, unspecified severity, without behavioral disturbance, psychotic disturbance, mood disturbance, and anxiety (principal); R44.3 Hallucinations, unspecified; R51.9 Headache, unspecified
CPT/HCPCS: 99214

== ENCOUNTER → 2024-05-18 14:00 | Outpatient (BNVA) | payer MEDICAID, SELFPAY | PROVIDERS: PCP Internal Medicine; Visit Provider Psychiatry & Neurology Neurology | DX: F03.90 Unspecified dementia, unspecified severity, without behavioral disturbance, psychotic disturbance, mood disturbance, and anxiety (principal); R44.3 Hallucinations, unspecified; R51.9 Headache, unspecified | CPT/HCPCS: 99212 ==

== ENCOUNTER 2024-05-20 14:24 | Outpatient (AMB) | payer MEDICAID, SELFPAY ==
--- NOTE | 2024-05-20 14:25 | MHC.OFFVIS ---
Vital Signs 05/20/24 14:37 Height 5 ft 2 in Weight 194 lb 8 oz BMI 35.6 BP 132/68 Blood Pressure Location Lt brachial Position Sitting Respiration 16 Pulse 69 Pulse Source Pulse Oximeter Pulse Oximetry (%) 99 Oxygen Delivery Method Room Air Intake Visit Reasons: Intervertebral Disc Degeneration Intake Note: Patient comes in for initial visit was referred by [facility]. She was accompanied by daughter Goldie, Reports pain 03/07. Program Engineer Required: Yes Program Engineer Services: Program Engineer Offered & Declined Accompanied by: Daughter Allergies oxycodone [From Percocet] Allergy (Unknown, Verified 05/20/24 14:40) Itching morphine Allergy (Intermediate, Uncoded 04/22/24 15:31) itching oxycodone Allergy (Intermediate, Uncoded 04/22/24 15:31) Itching tramadol Allergy (Intermediate, Uncoded 04/22/24 15:31) Itching HPI Comments Details: Yg is very pleasant mildly demented 74 years old female who presents in my office with her daughter who is her caregiver as well as health care proxy. She is here with complains on multiple pain generators. She reports pain in the lower back pain in the projection of upper lumbar spine pain in the neck as well as pain in bilateral shoulders she has pain radiating down to her right lower extremity to the level of the knee but not below that level. She reports that her pain started many years ago. She was back in [place] operated on her lower back with performance of apparently L2 through L5 instrumental fusion. Unfortunately the patient did not tolerated procedure well, she developed infection with her hardware and hardware was removed leaving her to a long and difficult recovery. Eventually she was established with [employer] spinal cord stimulator in 2010 or maybe 2012 (the daughter is not sure about the date and the patient herself does not remember it.) When she immigrated to this country for unknown reason her spinal cord stimulator was removed in 2018, she was under care of [facility] pain management where she received multiple images currently not available to me. She received multiple steroid injections she has her daughter stated that this was epidural steroid injection every 3-4 months for the course of 4 years. Total of 16 or more epidurals. She reported that initially epidurals were helping her however lately lost their effectiveness. Daughter stated that spinal cord stimulator was helping her a lot and she wants implantation of the device back. She was having multiple sessions of physical therapy referred by [facility] pain management. Last 1 was 2 years ago and she received no help from physical therapy. She tried NSAIDs and muscle relaxants however those were not effective for control of her pain. Her past medical history significant for diabetes diet controlled and hypertension. 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 Her pacemaker cart copy is scanned into the chart. Her past surgical history is only significant for described above implantation of the hardware in 2006 and removal of the hardware 6 months after. She stayed in the hospital for 6 months to treat this condition. Social history she is retired individual and demented. She has hallucinations of auditory and visual nature however lately she started on medications by her psychiatrist Dr. Salinas and her sensations became better. [facility] Medical History Hallucinations Dementia Pacemaker Tendonitis of both rotator cuffs Hypertension CKD (chronic kidney disease) Type 2 diabetes mellitus Osteoarthritis of knee Surgical History History of back surgery History of total right knee replacement (TKR) Family History Father Lung cancer Son Hypertension Brother Prostate cancer Brother Lung cancer Brother Myocardial infarction Social History Household Members: Family Housing: House Are you a primary career placement specialist to a significant other at home: No Do you presently have visiting nurse or other home services: No 75 years or older and lives alone: No Alcohol intake: never Patient Tobacco Use Status: Never used Tobacco e-Cigarette/Vaping Use: Never Used service: No Current occupational status: retired Review of Systems Const All systems reviewed & are unremarkable except as noted in HPI and below Physical Exam Vital Signs: Last Vital Signs Pulse 69 05/20/24 14:37 Resp 16 05/20/24 14:37 BP 132/68 05/20/24 14:37 Pulse Ox 99 05/20/24 14:37 Oxygen Delivery Method Room Air 05/20/24 14:37 BMI result Body Mass Index 35.6 Const General: cooperative Nutritional Appearance: obese Limitations: wheelchair HEENT Head: Yes normocephalic and Yes atraumatic Resp Effort & Inspection: normal respiratory effort and able to speak in complete sentences Skin General skin exam: no rashes or lesions noted Neuro Other: Mild decreased blink, facial expression right UE 2 + cog wheel rigidty Bradykinesia Decreased FFM and foot taps kathrin No tremors Hypophonia General: moves all extremities Cranial nerves: Yes Facial sensation intact/muscles of mastication intact, Yes Bilaterally intact EOM present, Yes Nystagmus not present, Yes Normal facial strength present and Yes Symmetric palate elevation present Cognition (Neuro): abnormal cognition Gait exam (Neuro): Antalgic gait present and Other gait observations present (slow with walker) Motor exam (neuro): 5/5 motor strength present throughout Coordination: [id number] test normal Extrem Other: Osteoarthritic changes of both hands Mild bilateral shoulder pain with full abduction Bilateral shoulder crepitus Unable to fully extend left knee Left knee pain with full flexion and extension No knee swelling or tenderness Assessment & Plan Assessment & Plan (1) Lumbar degenerative disc disease: Code(s): M51.36 - Other intervertebral disc degeneration, lumbar region Category: Medical (2) Osteoarthritis of shoulders, bilateral: Code(s): M19.011 - Primary osteoarthritis, right shoulder; M19.012 - Primary osteoarthritis, left shoulder Category: Medical Qualifiers: Osteoarthritis type: primary Qualified Code(s): M19.011 - Primary osteoarthritis, right shoulder; M19.012 - Primary osteoarthritis, left shoulder (3) Dementia: Comment: mixed, vascular Code(s): F03.90 - Unspecified dementia, unspecified severity, without behavioral disturbance, psychotic disturbance, mood disturbance, and anxiety Category: Medical (4) Postlaminectomy syndrome of lumbar region: Code(s): M96.1 - Postlaminectomy syndrome, not elsewhere classified Category: Medical (5) Chronic pain syndrome: Code(s): G89.4 - Chronic pain syndrome Category: Medical (6) Cognitive impairment: Comment: probable Alzheimer's Code(s): R41.89 - Other symptoms and signs involving cognitive functions and awareness Category: Medical Plan It is very hard to make a decision in this case the patient is not understanding Indonesian and it is hard for me to assess how deep her dementia is. She has a psychiatrist which prescribes her medications and treat her for dementia. If this Doctor will agree to perform the assessment of this patient and give us decision whether or not she would be a good candidate for the trial and implantation of spinal cord stimulator I am willing to go for a trial with this patient. It will be [employer] SCS. Unfortunately our [facility] does not have Polish speaking providers or Polish gas or water meter installer. They refused to make an assessment in this case. At the same time I informed the daughter of the patient that even if she would be approved for the neuromodulation from psychological standpoint it could be very difficult to establish care for this patient. She had extensive surgery from L2 through L5 and then removal of hardware. Most likely she has extensive epidural adhesions in this area. She also has a history of implantation and then removal of spinal cord stimulator leads or paddle, the nature of the procedure is unknown to me and it is impossible to establish whether or not it was epidural leads and not the paddle. Possibility exists that epidural space will never be reached with this patient's procedures. I requested [employer] inbound customer service representative to gather information about this patient. If it was surgically implanted SCS then it would be impossible to do a trial with epidural leads. In theory if she is approved from psychological standpoint pain pump could be considered but today we did not discuss this option because her daughter is very focused on reestablishment of [employer] SCS. Patient Instructions: I here by testify that I spent 60 minutes in conversation with this patient as well as evaluation of prior records of this patient as well as [facility] and requesting this patient history to be explored and deliver it to us. Coding Level of Care Code New Pt Level 5 (56130) Diagnoses Lumbar degenerative disc disease M51.36 Primary osteoarthritis of both shoulders M19.011; M19.012 Osteoarthritis type: primary Dementia F03.90 Postlaminectomy syndrome of lumbar region M96.1 Chronic pain syndrome G89.4 Cognitive impairment R41.89
[2024-05-20 14:37] VITALS: BP 132/68; PULSE 69; RESP 16; O2SAT 99; BMI 35.6
== END 2024-05-20 15:25 | disposition home or self-care (01) ==
PROVIDERS: PCP Internal Medicine; Referring Provider Student in an Organized Health Care Education/Training Program; Visit Provider Anesthesiology
DX: M51.369 Other intervertebral disc degeneration, lumbar region without mention of lumbar back pain or lower extremity pain (principal); M19.011 Primary osteoarthritis, right shoulder; M19.012 Primary osteoarthritis, left shoulder; F03.90 Unspecified dementia, unspecified severity, without behavioral disturbance, psychotic disturbance, mood disturbance, and anxiety; M96.1 Postlaminectomy syndrome, not elsewhere classified; G89.4 Chronic pain syndrome; R41.89 Other symptoms and signs involving cognitive functions and awareness
CPT/HCPCS: 99205

== ENCOUNTER → 2024-05-20 14:24 | Outpatient (BNVA) | payer MEDICAID, SELFPAY | PROVIDERS: PCP Internal Medicine; Referring Provider Student in an Organized Health Care Education/Training Program; Visit Provider Anesthesiology | DX: M51.360 Other intervertebral disc degeneration, lumbar region with discogenic back pain only (principal); M19.011 Primary osteoarthritis, right shoulder; M19.012 Primary osteoarthritis, left shoulder; M96.1 Postlaminectomy syndrome, not elsewhere classified; F03.90 Unspecified dementia, unspecified severity, without behavioral disturbance, psychotic disturbance, mood disturbance, and anxiety; R41.89 Other symptoms and signs involving cognitive functions and awareness; G89.4 Chronic pain syndrome | CPT/HCPCS: 99202 ==

== ENCOUNTER 2024-08-12 15:25 | Outpatient (AMB) | payer MEDICAID, SELFPAY ==
[2024-08-12 15:26] VITALS: BP 124/78; PULSE 74; O2SAT 99
--- NOTE | 2024-08-12 15:26 | MHC.OFFVIS ---
Vital Signs 08/12/24 15:26 Height 5 ft 2 in BP 124/78 Blood Pressure Location Rt brachial Position Sitting Pulse 74 Pulse Source Pulse Oximeter Pulse Oximetry (%) 99 Oxygen Delivery Method Room Air Intake Visit Reasons: 2m follow up/immigration forms Intake Note: Patient presents for 2 month follow up Allergies oxycodone [From Percocet] Allergy (Unknown, Verified 08/12/24 15:30) Itching morphine Allergy (Intermediate, Uncoded 08/12/24 15:30) itching oxycodone Allergy (Intermediate, Uncoded 08/12/24 15:30) Itching tramadol Allergy (Intermediate, Uncoded 08/12/24 15:30) Itching Medication List - Last Reconciled 08/12/24 by Sachin Chau PA-C ammonium lactate 12% appl topical BID atorvastatin 40 mg PO DAILY blood sugar diagnostic (FreeStyle Lite Strips) As directed bumetanide 1 mg PO Q OTHER DAY cholecalciferol (vitamin D3) 50 mcg PO QAM clotrimazole 1% appl topical BID cyanocobalamin (vitamin B-12) 100 mcg IM Q4W diclofenac sodium 1% (Arthritis Pain (diclofenac)) 2 grams topical QID ergocalciferol (vitamin D2) 1,250 mcg PO QWEEK famotidine (Pepcid) 20 mg PO BID ferrous sulfate 325 mg PO DAILY gabapentin 300 mg PO TID hydrocodone-acetaminophen 5-325 mg 1 tab PO Q6H PRN hydroxyzine HCl 25 mg PO TID PRN indapamide 2.5 mg PO BEDTIME lactulose 20 grams PO TID lancets (FreeStyle Lancets) As directed lidocaine 5% 1 patch topical DAILY linaclotide (Linzess) 290 mcg PO DAILY lorazepam 0.5 mg PO ONCE PRN losartan 25 mg PO DAILY loteprednol etabonate 0.5% (Lotemax) 1 appl ophthalmic (eye) QPM magnesium oxide 400 mg PO DAILY 90 days melatonin 3 mg PO BEDTIME 90 days memantine 10 mg PO BID multivitamin with folic acid 400 mcg (Daily-Nohemy (with folic acid)) 1 tab PO DAILY ondansetron HCl 4 mg PO Q8H PRN pioglitazone (Actos) 30 mg PO BID potassium chloride ER 10 mEq PO BID quetiapine 1.5tabs qhs orally bedtime; 90 days repaglinide 2 mg PO BID riboflavin (vitamin B2) 400 mg PO DAILY 90 days sertraline 100 mg PO BEDTIME tobramycin-dexamethasone 0.3-0.1 % (TobraDex) ophthalmic (eye) TID tobramycin-dexamethasone 0.3-0.1 % 1 drp ophthalmic (eye) TID zolmitriptan take 1 tab at onset of headache; if no relief, may repeat 1 tab after at least 2 hrs; max = 2 tabs/24 hrs PO HPI Comments Details: 74 y/o female comes for follow up of Cognitive Decline. Pt's daughter Goldie helps with history, d/t language barrier. She still has visual hallucination, at night, sees dogs, cats and woman talking. She gets agitated and starts to scream at the cat who runs under the sofa or as it runs outside of the front door of their home. She sleeps well when she takes her Seroquel. She has headaches always starts when she eats something, last couple of hours or whole day. She has pressure headache, it is associated with dizziness. Denies photophobia/ phonophobia. Pt lives with her daughter and need greenhouse assistant for all ADLs. Daughter states that patient's movements including gait is very slow and tremulous, as if she will fall due to being off balance. She also has chronic low back pain and is followed by [facility] pain management. She is not physically active, does not engage in any activities, she sits in bed all day watching TV or Facebook. She would like to do some activities but gets frustrated d/t pain. MRI Reviewed Jul 2023: No evidence of acute/subacute infarction, hemorrhage or mass effect. Scattered foci of nonspecific T2 signal abnormality in the supratentorial white matter and trace are most likely related to mild chronic microvascular ischemic changes, and loss of volume. Will send for MRI w/ Neuro[facility], measure volumes of brain atrophy and comparison. MMSE can not complete due to language barrier. Labs D/ B12/ Iron/ TSH is low 02/2024 Contramol- Medicine has hydrocodein and tramadol, +analgesic in one. [facility] Medical History Hallucinations Dementia Pacemaker Tendonitis of both rotator cuffs Hypertension CKD (chronic kidney disease) Type 2 diabetes mellitus Osteoarthritis of knee Surgical History History of back surgery History of total right knee replacement (TKR) Family History Father Lung cancer Son Hypertension Brother Prostate cancer Brother Lung cancer Brother Myocardial infarction Social History Household Members: Family Housing: House Are you a primary caregiver assisted living to a significant other at home: No Do you presently have visiting nurse or other home services: No 75 years or older and lives alone: No Alcohol intake: never Patient Tobacco Use Status: Never used Tobacco e-Cigarette/Vaping Use: Never Used service: No Current occupational status: retired Review of Systems Const All systems reviewed & are unremarkable except as noted in HPI and below Physical Exam Vital Signs: Last Vital Signs Pulse 74 08/12/24 15:26 BP 124/78 08/12/24 15:26 Pulse Ox 99 08/12/24 15:26 Oxygen Delivery Method Room Air 08/12/24 15:26 Micronesian Speaking, cooperative, with daughter who relays history. Const General: cooperative, no acute distress and anxious Nutritional Appearance: average body habitus Orientation/consciousness: patient oriented x3 HEENT Face and sinus: Yes normal facial exam and Yes face symmetric Teeth and gingiva: other (Tremor of the tongue) Eyes Pupils: Equal, round and reactive pupils present Resp Effort & Inspection: normal respiratory effort and able to speak in complete sentences Neuro General: patient oriented x3 and moves all extremities Cranial nerves: Yes CN's II-XII intact bilaterally, Yes Facial sensation intact/muscles of mastication intact, Yes Equal, round and reactive pupils present, Yes Normal accommodation reflex present, Yes Bilaterally intact EOM present, Yes Nystagmus not present, Yes Normal facial strength present, Yes Midline tongue present, Yes Ability to bilaterally rotate head present (Limited ROM to the L>R) and Yes Ability to bilaterally elevate shoulders present Gait exam (Neuro): Assistive device used and Other gait observations present (Wheelchair bound, uses walker to ambulate at home.) Motor exam (neuro): Normal motor muscle tone present throughout, Abnormal motor strength present (3/5 upper and lower extremity), Pronator motor function present, Tremors during motor activity present (UE bilaterally into the R. hand more pronounced.) and Motor abnormalites present Sensory Exam: Upper extremity sensory exam abnormal Deep tendon reflexes (DTR's): Right triceps reflex intensity grade: 2+, Left triceps reflex intensity grade: 2+, Rt Biceps (C5, C6): 2+, Left biceps reflex intensity grade: 2+, Right brachioradialis reflex intensity grade: 2+ and Left brachioradialis reflex intensity grade: 2+ Coordination: rapid alternating movements of the distal lower extremity normal (unable to follow/ slowed hand movements and slowed fine motor coordination) Psych Appearance: well kempt Speech and movement: Slowed movement present (Neuro) and Restless speech present Affect: normal affect Attitude: cooperative Insight: Fair insight present (Psych) Judgement: Fair judgement present (Psych) Results Reviewed Results Reviewed: MRI 2023 Labs 02/2024 Medication list - Patient Education BEERS critieria in Elderly home bound - Wheelchair patients Assessment & Plan Assessment & Plan (1) Headache: Code(s): R51.9 - Headache, unspecified Category: Medical Qualifiers: Headache type: cluster Headache chronicity pattern: chronic headache Intractability: intractable Qualified Code(s): G44.021 - Chronic cluster headache, intractable (2) Cognitive impairment: Comment: probable Alzheimer's Code(s): R41.89 - Other symptoms and signs involving cognitive functions and awareness Category: Medical (3) Dementia: Comment: mixed, vascular Code(s): F03.90 - Unspecified dementia, unspecified severity, without behavioral disturbance, psychotic disturbance, mood disturbance, and anxiety Category: Medical Qualifiers: Dementia type: unspecified type Dementia severity: moderate Dementia behavioral or psychological symptom: with agitation Qualified Code(s): F03.B11 - Unspecified dementia, moderate, with agitation (4) Cognitive impairment: Comment: probable Alzheimer's Code(s): R41.89 - Other symptoms and signs involving cognitive functions and awareness Category: Medical (5) Dementia: Comment: mixed, vascular Code(s): F03.90 - Unspecified dementia, unspecified severity, without behavioral disturbance, psychotic disturbance, mood disturbance, and anxiety Category: Medical Qualifiers: Dementia type: vascular dementia Dementia severity: moderate Dementia behavioral or psychological symptom: with agitation Qualified Code(s): F01.B11 - Vascular dementia, moderate, with agitation (6) Hallucinations: Code(s): R44.3 - Hallucinations, unspecified Category: Medical (7) Hallucinations: Code(s): R44.3 - Hallucinations, unspecified Category: Medical Plan Lewy Body? Vascular? Alzheimers? Dementia with Hallucinations -Will send for MRI w/ [facility], at [facility] d/t pacemaker in situ, evaluate volumes of white matter atrophy and comparison with old MRI (Lorazepam 0.5mg for MRI procedure at [facility]) may take one additional dose for anxiety, 2 (0.5mg) tablets provided. MMSE can not complete due to language barrier. Anxiety: Continue taking Sertraline 100mg PO at bedtime Hallucinations Continue taking Seroquel (Quietapine 25mg PO at bedtime) for Hallucinations, night terrors. PT Physical Therapy to engage patient in stretching and walking for 10 min daily or as tolerable. Labs CBC/ CMP D/ [id number]/ MMA/ Homocystein Ferritin/ TSH is low 02/2024?, she is taking D, f/u. Patient education provided for good blood pressure control, ischemic changes d/t microvascular changes seen in MRI Jul 2023. Contramol? 100mg this RX has a combination of Tramadol, analgesic for pain management, patient provided med. Headaches May take one tablet of Zolmitriptan as needed, during the onset of headaches, you may take one more tablet in 4 hours for migraine prevention. F/U in 3 months. Orders: Orders MR brain wo/w con w neuroquant Today F0.90 - Unspecified dementia, unspecified severity, without behavioral disturbance, psychotic disturbance, mood disturbance, and anxiety, R41.89 - Other symptoms and signs involving cognitive functions and awareness Comprehensive Met. Panel Today F03.90 - Unspecified dementia, unspecified severity, without behavioral disturbance, psychotic disturbance, mood disturbance, and anxiety, R44.3 - Hallucinations, unspecified, R51.9 - Headache, unspecified Vitamin D 25-OH Total Today F03.90 - Unspecified dementia, unspecified severity, without behavioral disturbance, psychotic disturbance, mood disturbance, and anxiety, R51.9 - Headache, unspecified IRON PROFILE Today F0.90 - Unspecified dementia, unspecified severity, without behavioral disturbance, psychotic disturbance, mood disturbance, and anxiety, R41.89 - Other symptoms and signs involving cognitive functions and awareness, R51.9 - Headache, unspecified PT Evaluation and Treatment Today M51.36 - Other intervertebral disc degeneration, lumbar region Ferritin Today F03.90 - Unspecified dementia, unspecified severity, without behavioral disturbance, psychotic disturbance, mood disturbance, and anxiety, R44.3 - Hallucinations, unspecified, R51.9 - Headache, unspecified Complete Blood Count no Diff Today F03.90 - Unspecified dementia, unspecified severity, without behavioral disturbance, psychotic disturbance, mood disturbance, and anxiety, R44.3 - Hallucinations, unspecified, R51.9 - Headache, unspecified Homocysteine Today F03.90 - Unspecified dementia, unspecified severity, without behavioral disturbance, psychotic disturbance, mood disturbance, and anxiety, R44.3 - Hallucinations, unspecified, R51.9 - Headache, unspecified Vitamin B12 and Folate Today F0.90 - Unspecified dementia, unspecified severity, without behavioral disturbance, psychotic disturbance, mood disturbance, and anxiety, R51.9 - Headache, unspecified TSH reflex Free T4 Today F0. - Unspecified dementia, unspecified severity, without behavioral disturbance, psychotic disturbance, mood disturbance, and anxiety, F09 - Unspecified mental disorder due to known physiological condition, R51.9 - Headache, unspecified Methylmalonic Acid Today F0.90 - Unspecified dementia, unspecified severity, without behavioral disturbance, psychotic disturbance, mood disturbance, and anxiety, R51.9 - Headache, unspecified Medications: New zolmitriptan take 1 tab at onset of headache; if no relief, may repeat 1 tab after at least 2 hrs; max = 2 tabs/24 hrs PO 30 tabs 2RF R51.9 - Headache, unspecified lorazepam Patient is claustrophobic, has a pacemaker, please administer one tablet, 0.5mg PO for MRI procedure. MRI [facility] - comparison MRI 0.5 mg PO ONCE PRN 2 tabs 0RF MRI procedure F0. - Unspecified dementia, unspecified severity, without behavioral disturbance, psychotic disturbance, mood disturbance, and anxiety, R41.89 - Other symptoms and signs involving cognitive functions and awareness Refilled sertraline 100 mg PO BEDTIME 30 tabs 6RF Coding Level of Care Code Est Pt Level 4 (42503) Complex EM visit Add On G2211 Diagnoses Intractable chronic cluster headache G44.021 Headache type: cluster Headache chronicity pattern: chronic headache Intractability: intractable Cognitive impairment R41.89 Moderate dementia with agitation, unspecified dementia type F03.B11 Dementia type: unspecified type Dementia severity: moderate Dementia behavioral or psychological symptom: with agitation Hallucinations R44.3 Time Spent (min) 45 Comment Worsening Dementia
== END 2024-08-12 16:27 | disposition home or self-care (01) ==
PROVIDERS: PCP Internal Medicine; Visit Provider Physician Assistant Medical
DX: G44.021 Chronic cluster headache, intractable (principal); R41.89 Other symptoms and signs involving cognitive functions and awareness; F03.B11 Unspecified dementia, moderate, with agitation; R44.3 Hallucinations, unspecified; F01.B11 Vascular dementia, moderate, with agitation
CPT/HCPCS: 99214

== ENCOUNTER → 2024-08-12 15:25 | Outpatient (BNVA) | payer MEDICAID, SELFPAY | PROVIDERS: PCP Internal Medicine; Visit Provider Physician Assistant Medical | DX: G44.021 Chronic cluster headache, intractable (principal); R41.89 Other symptoms and signs involving cognitive functions and awareness; F01.B11 Vascular dementia, moderate, with agitation; R44.3 Hallucinations, unspecified | CPT/HCPCS: 99212 ==

== ENCOUNTER 2024-09-10 14:53 | Outpatient (AMB) | payer MEDICAID, SELFPAY ==
--- OUTSIDE RECORDS SUMMARY | 2024-09-10 14:55 | XMS_ITS | Clinical Summary ---
Author Organization [facility] Address [address] [place] [address] Care Team Providers Care Hris Manager Name Role Phone Shilpa Jeffries Primary Care Provide r Allergies Active Allergy Reactions Criticality Noted Date Comments Morphine Rash 09/27/2022 Oxycodone Dermatitis 09/27/2022 Tramadol-Acetaminophen Rash 09/27/2022 Medications amitriptyline (ELAVIL) 25 mg tablet Take 25 mg by mouth. 2 Active atorvastatin (LIPITOR) 20 mg tablet Take 20 mg by mouth once a day. 2 Active Freestyle Lite test strips USE TO TEST TWICE A DAY 3 Active diclofenac (VOLTAREN) 1% gel APPLY TO AFFECTED AREA TWICE A DAY 3 Active ergocalciferol (VITAMIN D2) 1,250 mcg (50,000 unit) capsule Take 50,000 Units by mouth once a week. 2 Active estradioL (ESTRACE) 0.01 % (0.1 mg/gram) vaginal cream PLEASE SEE ATTACHED FOR DETAILED DIRECTIONS 3 Active famotidine (PEPCID) 20 mg tablet Take 20 mg by mouth 2 times a day. 3 Active ferrous sulfate 325 mg (65 mg iron) tablet Take 325 mg by mouth. 3 Active gabapentin (NEURONTIN) 300 mg capsule Take 300 mg by mouth 3 times a day. 2 Active HYDROcodone-acet aminophen (NORCO) 5-325 mg tablet Take 1 tablet by mouth. 3 Active hydrOXYzine HCL (ATARAX) 25 mg tablet Take 25 mg by mouth every 6 hours as needed. 2 Active Linzess 290 mcg capsule Take 1 capsule by mouth once a day. 3 Active losartan (COZAAR) 25 mg tablet Take 25 mg by mouth once a day. 3 Active Lotemax 0.5 % ointment SMARTSI.25 Inch(es) Left Eye Every Evening 2 Active Daily-Nohemy, with folic acid, tablet Take 1 tablet by mouth once a day. 3 Active ondansetron (ZOFRAN) 4 mg tablet Take 4 mg by mouth. 2 Active sertraline (ZOLOFT) 25 mg tablet Take 25 mg by mouth once a day. 3 Active SUMAtriptan (IMITREX) 50 mg tablet SMARTSI Tablet(s) By Mouth Every 2 Weeks PRN 3 Active captopriL (CAPOTEN) 25 mg tablet Take 25 mg by mouth 3 times a day. 2 Active Flowflex COVID-19 Ag Home Test kit USE DIRECTED 2 Active Cequa 0.09 % dropperette 1 drop 2 times a day. 2 Active ibuprofen (MOTRIN) 600 mg tablet Take 600 mg by mouth 3 times a day as needed. 3 Active indapamide (LOZOL) 2.5 mg tablet Take 2.5 mg by mouth. 2 Active Freestyle lancets 28 gauge SMARTSI stick Topical Twice Daily 3 Active lisinopriL (PRINIVIL,ZESTRI L) 10 mg tablet Take 10 mg by mouth once a day. 2 Active pioglitazone (ACTOS) 30 mg tablet Take 30 mg by mouth 2 times a day. 2 Active Tobradex ophthalmic ointment SMARTSI sparingly In Eye(s) 3 Times Daily 2 Active Social History Tobacco Use Types Packs/Day Years Used Date Smoking Tobacco: Never Assessed Comments Unknown Sex and Gender Information Value Date Recorded Sex Assigned at Female 11/26/2022 1:13 PM EDT Legal Sex Female 2:53 PM EST Gender Identity Female 11/26/2022 1:13 PM EDT Sexual Orientation Straight 11/26/2022 1: 13 PM EDT Last Filed Vital Signs Vital Sign Reading Time Taken Comments Blood Pressure 126/80 09/27/2022 10:44 AM EST Pulse 70 09/27/2022 10:44 AM EST Temperature - - Respiratory Rate 18 09/27/2022 10:44 AM EST Oxygen Saturation 99% 09/27/2022 10:44 AM EST Inhaled Oxygen Concentration - - Weight - - Height - - Body Mass Index - - Plan of Treatment Health Maintenance Due Date Last Done Comments Hepatitis C Screening 1950 DTaP,Tdap,and Td Vaccines (1 - Tdap) 01/26/1970 Zoster Vaccines (1 of 2) 01/26/1998 RSV Vaccine (60+ years old and patients) (1 - 1-dose 75+ series) 01/26/2023 COVID-19 Vaccine ( - season) 2024 09/15/2021, 12/14/2020, 11/23/2020 Influenza Vaccine (#1) 2024 , 05/06/2020, 07/20/2019, Additional history exists Alcohol/Substance Use Screening 07/29/2024 Depression Screening and Follow-Up 07/29/2024 Health Care Proxy Review 07/29/2024 Social Drivers of Health Annual Screening 07/29/2024 Pneumococcal Vaccine: 50+ Years Completed 06/17/2017, 01/10/2017 Osteoporosis Screening Completed 11/29/2022 Hepatitis B Vaccines Aged Out No long er eligible based on patient's age to complete this topic Procedures * Due to [place] QVIVO law, this organization might not be sharing negative HIV tests. Procedure Name Priority Date/Time Associated Diagnosis Comments DEXA BONE DENSITY AXIAL Routine 11/29/2022 2:46 PM EDT Age-related osteoporosis with current pathological fracture, sequela from Last 3 Months or Most Recently Relevant to Health Maintenance Results * Due to [place] QVIVO law, this organization might not be sharing negative HIV tests. * Dexa bone density Axial (11/29/2022 2:46 PM EDT) Anatomical Region Laterality Modality Hip, L-spine Bone Densitometr y 11/30/2022 12:4 6 PM EDT Impressions 11/30/2022 12:47 PM EDT This patient has osteoporosis. Consider bone health evaluation and management by Endocrinology or Rheumatology. Thank you for the courtesy of this referral. If this radiology report contains a blank impression section, it is an incomplete radiology report. ??Please contact the interpreting radiologist or applicable radiology division as soon as possible to obtain the completed interpretation. ? Workstation ID: [id number] Narrative 11/30/2022 12:47 PM EDT EXAM: ??BONE MINERAL DENSITY INDICATION: Osteoporosis M80.00XS - I10 - Age-related osteoporosis with current pathological fracture, unspecified site, sequela PROCEDURE: ??The bone mineral density (BMD) of the spine and proximal right femur was determined using an external X-ray source(Hologic). SITE: [facility] FINDINGS: L1-L4: ??BMD 0.93gm/cm2 ?? T-Score -1.1 ?Z-score: 1.3 Femoral neck: ??BMD 0.52gm/cm2 ?? T-Score -3 ?Z-score: -0.9 The World Health Organization (WHO) defines osteoporosis (as studied in post-menopausal women) as a T value of (-)2.5 or less at any site. ??Osteopenia is defined by a T value between (-)1.1 and (-)2.4. In general, it is recommended that patients receive approximately 1000 mg of calcium daily, either from dairy products or supplements (including multiple vitamin). Patients should consider supplementing with vitamin D. Vitamin D recommendations should be discussed with Health Care Provider and measurement of vitamin D levels should be considered. Careful weight-bearing exercise is also useful in maintaining bone mass and to help protect against falls. Resulting Agency Comment [id number] Procedure Note Jerod Kwan MD - 11/30/2022 EXAM: BONE MINERAL DENSITY INDICATION: Osteoporosis M80.00XS - I10 - Age-related osteoporosis withcurrent pathological fracture, unspecified site, sequela PROCEDURE: The bone mineral density (BMD) of the spine and proximal rightfemur was determined using an external X-ray source(Hologic). SITE: [place] FINDINGS: L1-L4: BMD 0.93gm/cm2 T-Score -1.1 Z-score: 1.3 Femoral neck: BMD 0.52gm/cm2 T-Score -3 Z-score: -0.9 The World Health Organization (WHO) defines osteoporosis (as studied inpost-menopausal women) as a T value of (-)2.5 or less at any site.Osteopenia is defined by a T value between (-)1.1 and (-)2.4. In general, it is recommended that patients receive approximately 1000 mgof calcium daily, either from dairy products or supplements (includingmultiple vitamin). Patients should consider supplementing with vitamin D.Vitamin D recommendations should be discussed with Health Care Providerand measurement of vitamin D levels should be considered. Carefulweight-bearing exercise is also useful in maintaining bone mass and tohelp protect against falls. IMPRESSION: This patient has osteoporosis. Consider bone health evaluation and management by Endocrinology orRheumatology. Thank you for the courtesy of this referral. If this radiology report contains a blank impression section, it is anincomplete radiology report. Please contact the interpreting radiologistor applicable radiology division as soon as possible to obtain thecompleted interpretation. Workstation ID: [id number] Ricky Wynn MD IMG DXA PROCEDURES Final Resu lt from Last 3 Months or Most Recently Relevant to Health Maintenance Insurance [facility] [place] [address] Care Teams Hris Manager Relationship Specialty Start Date End Date Shilpa Jeffries PCP - General Internal Medicine 09/20/22
--- OUTSIDE RECORDS SUMMARY | 2024-09-10 14:55 | XMS_ITS | Encounter Summary ---
Author Organization [facility] [place] [address] Care Team Providers Care Cotton Stomper Name Role Phone Shilpa Jeffries MD Primary Care Prov ider Encounter Details Date Type Department Care Team (Late Contact Info) Description 08/17/[address] [phone] Anaya Philip MA Social History Tobacco Use Types Packs/Day Years Used Date Smoking Tobacco: Never Smokeless Tobacco: Never Alcohol Use Standard Drinks/Week Comments No 0 (1 standard drink = 0.6 oz pur e alcohol) Comments Unknown Sex and Gender Information Value Date Recorded Sex Assigned at Not on file Legal Sex Female 3:47 PM EST Gender Identity Not on file Sexual Orientation Not on file documented as of this encounter Progress Notes * Shilpa Jeffries MD - 08/17/2024 12:42 PM EST Order signed * Anaya Philip MA - 08/17/2024 11:01 AM EST B12 pended for your review documented in this encounter Plan of Treatment Upcoming Encounters Date Type Department Care Team (Late Contact Info) Description 11/30/2024 2:30 PM EDT Office Visit Adult Medicine - [place] [address] [place] [phone] Maciej Pichardo PA [address] [place] [address] documented as of this encounter Visit Diagnoses Diagnosis Vitamin B12 deficiency- Primary Other B-complex deficiencies documented in this encounter Orders Medications Ordered That Grey ht Not Have Been Administered Count Last Ordered Date First Ordered Date cyanocobalamin (VITAMIN B-12 ) injection 1,000 mcg 1 08/17/2024 documented in this encounter Care Teams Cotton Stomper Relationship Specialty Start Date End Date Shilpa Jeffries MD [address] [place] [address] PCP - General Internal Medicine 12/06/16 documented as of this encounter
--- OUTSIDE RECORDS SUMMARY | 2024-09-10 14:55 | XMS_ITS | Encounter Summary ---
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 (CMS/HCC); Vitamin B12 deficiency; Chronic migraine with aura without status migrainosus, not intractable; Urinary tract infection without hematuria, site unspecified; Hypothyroidism, unspecified type; Vitamin D deficiency; Iron deficiency anemia due to chronic blood loss; Weakness; Non-St Helenian speaking patient Social History Tobacco Use Types Packs/Day Years Used Date Smoking Tobacco: Never Smokeless Tobacco: Never Alcohol Use Standard Drinks/Week Comments No 0 (1 standard drink = 0.6 oz pur e alcohol) Comments No Sex and Gender Information Value Date Recorded Sex Assigned at Not on file Legal Sex Female 3:47 PM EST Gender Identity Not on file Sexual Orientation Not on file documented as of this encounter Last Filed Vital Signs Vital Sign Reading Time Taken Comments Blood Pressure 140/85 09/02/2024 10:05 AM EST Pulse 60 09/02/2024 10:05 AM EST Temperature 36.3 ??C (97.4 ??F) 09/02/2024 10:[address] Respiratory Rate - - Oxygen Saturation - - Inhaled Oxygen Concentration - - Weight 89.8 kg (198 lb) 09/02/2024 10:05 AM EST Height - - Body Mass Index 32.95 04/27/2024 11:26 AM EDT documented in this encounter Ordered Prescriptions Prescription Sig Dispense Quantity Refills Last Filled Start Date End Date ZOLMitriptan (ZOMIG) 5 mg tablet Take 1 tablet (5 mg total) by mouth 1 (one) time if needed for migraine. May repeat once after 2 hours. 18 tablet 3 09/02/2024 6 lidocaine (LIDODERM) 5 % patch Apply topically 1 (one) time each day. 28 patch 3 09/02/2024 5 HYDROcodone-acetam inophen (NORCO) 5-325 mg per tablet Take 1 tablet by mouth every 6 (six) hours if needed for severe pain for up to 28 days. Max Daily Amount: 4 tablets 112 tablet 09/02/2024 5 documented in this encounter Progress Notes * Shilpa Jeffries MD - 09/02/2024 10:00 AM EST CHIEF COMPLAINT: Follow-up, Diabetes, and Injections (B-12) IDENTIFIER: Yg Finch is a 74 y.o. old female. HPI: 74-year-old lady presents with her daughter for her routine follow-up. Most of the history is obtained from her daughter who is also helping with translation She has a history of chronic pain syndrome for which she is on chronic opiate analgesics. Late onset Alzheimer's dementia chronic kidney disease diabetes mellitus vitamin B12 vitamin D deficiency. Today her daughter says she is concerned about her mother because she continues to be weak . she is losing her hair she is worried that she has a vitamin deficiency . she has also noticed that her mother has a lot of bruising .no trauma that she can think of She also feels that she might have a urinary tract infection because she is having dysuria and frequency Wants to check her vitamin levels She is up-to-date on her medications She is up-to-date on her immunizations ROS: Review of system noncontributory as most of the history is obtained from the daughter PAST MEDICAL HISTORY: Patient Active Problem List Diagnosis Date Noted Non-St Helenian speaking patient 09/02/2024 Diabetic mononeuropathy associated with type 2 diabetes mellitus ([facility]) 08/14/2023 Chronic pain syndrome 08/14/2023 Physical deconditioning 08/14/2023 Hyperlipidemia 08/14/2023 Late onset Alzheimer's dementia with mood disturbance ([facility]) 01/02/2023 Rosacea 05/16/2022 Stage 3a chronic kidney disease ([facility]) 10/04/2021 Tendonitis of both rotator cuffs 02/06/2021 COVID-19 virus detected 11/02/2019 History of total knee replacement, right 08/20/2018 Spondylosis of lumbosacral region without myelopathy or radiculopathy 01/03/2018 Vitamin B12 deficiency 11/11/2017 Osteoarthritis of knees, bilateral 04/25/2017 Amaurosis fugax, both eyes 02/05/2017 Spinal cord stimulator status 02/05/2017 Pacemaker 01/15/2017 Type 2 diabetes mellitus with cataract ([facility]) 12/13/2016 Essential hypertension 12/13/2016 Constipation 12/13/2016 Iron deficiency anemia 12/13/2016 Elevated sed rate 12/13/2016 SOCIAL HISTORY: Social History Tobacco Use Smoking status: Never Smokeless tobacco: Never Substance Use Topics Alcohol use: No FAMILY HISTORY: Family Status Relation Name Status Father Daughter Alive Son Alive Brother Brother Brother Brother Sister Sister Sister Other (Not Specified) Mother Brother Alive Sister No partnership data on file Family History Problem Relation Name Age of Onset Lung cancer Father No Known Problems Daughter Hypertension Son Prostate cancer Brother Lung cancer Brother Heart attack Brother Stomach cancer Brother Lung cancer Sister Coronary artery disease Sister Heart attack Sister Cataracts Other ACTIVE MEDICATIONS: Outpatient Medications Marked as Taking for the 09/02/24 encounter (Office Visit) with Shilpa Jeffries MD Medication Sig Dispense Refill acetaminophen (TYLENOL) 325 mg tablet Take 2 Tabs by mouth every 6 hours as needed for Pain for up to 10 days. amitriptyline (ELAVIL) 25 mg tablet TAKE 1 TABLET BY MOUTH EVERYDAY AT BEDTIME blood sugar diagnostic (FreeStyle Lite Strips) test strip USE TO TEST TWICE A DAY blood-glucose meter kit Test blood sugar bid blood-glucose meter misc Test Blood Sugar Twice Daily brimonidine (ALPHAGAN) 0.2 % ophthalmic solution 1 Drop 3 times daily. bumetanide (BUMEX) 1 mg tablet TAKE 1 TABLET BY MOUTH EVERY OTHER DAY FOR 360 DAYS. calcium carbonate 1,500 mg (600 mg elemental calcium) tablet Take 1 Tablet by mouth 2 times daily (with meals). cholecalciferol (VITAMIN D-3) 50 mcg (2,000 unit) tablet Take 1 Tablet by mouth daily. clotrimazole (LOTRIMIN) 1 % cream APPLY A SMALL AMOUNT TO AFFECTED AREA TWICE A DAY cycloSPORINE 0.05 % drops 1 Drop 2 times daily. Daily-Nohemy, with folic acid, 400 mcg tablet TAKE 1 TABLET BY MOUTH EVERY DAY 90 tablet 1 denosumab (PROLIA) 60 mg/mL syringe syringe Inject 60 mg into the skin Once. diclofenac (VOLTAREN) 1 % topical gel APPLY 1 APPLICATORFUL TOPICALLY 2 TIMES DAILY. ergocalciferol (VITAMIN D-2) 1,250 mcg (50,000 unit) capsule Take 1 Capsule by mouth once a week. famotidine (PEPCID) 20 mg tablet TAKE 1 TABLET BY MOUTH TWICE A DAY ferrous sulfate 325 mg (65 mg elemental iron) tablet TAKE 1 TABLET BY MOUTH EVERY DAY FREESTYLE LANCETS [facility] Apply 1 Stick topically 2 times daily. gabapentin (NEURONTIN) 300 mg capsule TAKE 1 CAPSULE BY MOUTH THREE TIMES A DAY HYDROcodone-acetaminophen (NORCO) 5-325 mg per tablet Take 1 tablet by mouth every 6 (six) hours ifneeded for severe pain for up to 28 days. Max Daily Amount: 4 tablets 112 tablet 0 hydrOXYzine HCL (ATARAX) 25 mg tablet TAKE 1 TABLET BY MOUTH EVERY 6 HOURS NEEDED FOR ITCHING. isopropyl alcohoL (Alcoh-Wipe) 70 % towelette Apply 1 Each topically 2 times daily. ketoconazole (NIZORAL) 2 % cream 2 times daily. lidocaine (LIDODERM) 5 % patch Apply topically 1 (one) time each day. 28 patch 3 linaCLOtide (Linzess) 290 mcg capsule Take 1 Capsule by mouth daily. losartan (COZAAR) 25 mg tablet Take 1 Tablet by mouth daily. memantine (NAMENDA XR) 7 mg extended release capsule Take 1 Capsule by mouth daily. multivitamin tablet TAKE 1 TABLET BY MOUTH EVERY DAY nystatin-triamcinolone (MYCOLOG II) ointment Apply to affected area BID for up to 2 weeks ondansetron (ZOFRAN) 4 mg tablet Take 1-2 Tablets by mouth every 8 hours as needed for Nausea. potassium chloride 20 mEq tablet extended release Take 1 Tablet by mouth every other day for 360 days. prednisoLONE acetate (PRED FORTE) 1 % ophthalmic suspension INSTILL 1 DROP INTO BOTH EYES 4 TIMES ADAY QUEtiapine (SEROquel) 25 mg tablet TAKE 1 TABLET BY MOUTH EVERY DAY AT BEDTIME sertraline (ZOLOFT) 100 mg tablet TAKE 1 TABLET BY MOUTH AT BEDTIME sertraline (ZOLOFT) 50 mg tablet at bedtime. SUMAtriptan (IMITREX) 50 mg tablet TAKE 1 TABLET AT LEAST 2 HOURS BETWEEN DOSES NEEDED ORALLY ONCE A DAY 30 DAYS terbinafine (LamISIL) 1 % cream Apply to affected and surrounding area(s) once daily until clinicalresolution, typically 1 week [DISCONTINUED] HYDROcodone-acetaminophen (NORCO) 5-325 mg per tablet Take 1 Tablet by mouth 4 timesdaily. [DISCONTINUED] lidocaine (LIDODERM) 5 % patch PLACE 1 PATCH ONTO THE SKIN EVERY 24 HOURS.APPLY FOR NO MORE THAN 12 HOURS IN ANY 24 HOUR PERIOD. 28 patch 2 Current Facility-Administered Medications for the 09/02/24 encounter (Office Visit) with Shilpa Jeffries MD Medication Dose Route Frequency Provider Last Rate Last Admin cyanocobalamin (VITAMIN B-12) injection 1,000 mcg 1,000 mcg intramuscular q30 days Shilpa Jeffries MD cyanocobalamin (VITAMIN B-12) injection 1,000 mcg 1,000 mcg intramuscular q30 days Shilpa Jeffries MD 1,000 mcg at 09/02/24 1200 ALLERGIES: Morphine, Oxycodone hcl, Oxycodone-acetaminophen, and Tramadol PHYSICAL EXAM: Blood pressure (!) 165/91, pulse 60, temperature 36.3 ??C (97.4 ??F), temperature source Temporal, weight 89.8 kg (198 lb). Body mass index is 32.95 kg/m??. Plan is deferred because the patient is aged 65 or older and a weight gain/reduction plan would complicate other health conditions APPEARANCE: Alert and in no acute distress EYES: PERRLA, conjunctiva and sclera normal EARS: External ear clear MOUTH/THROAT: no erythema, lesions, or exudates SKIN: Small areas of bruising on her thigh and forearm LABS: Vitamin B12 vitamin D iron levels magnesium comprehensive metabolic Urinalysis and culture IMPRESSION: 1. 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 Vitamin B12 deficiency 4. Chronic migraine with aura without status migrainosus, not intractable 5. Urinary tract infection without hematuria, site unspecified 6. Hypothyroidism, unspecified type 7. Vitamin D deficiency 8. Iron deficiency anemia due to chronic blood loss 9. Weakness 10. Non-St Helenian speaking patient PLAN: Type 2 diabetes mellitus Patient is diet controlled Will follow hemoglobin A1c Mild Alzheimer's She is on Namenda and is tolerating the medicines well daughter says she is up-to-date on her medicine Vitamin B12 deficiency Restart vitamin B12 supplements/injection Will follow vitamin B12 levels Possible urinary tract infection Urine cultures Hypothyroidism Will follow TSH Will adjust her levothyroxine if needed Vitamin D deficiency Will check vitamin D levels She takes [id number] vitamin D supplement Iron deficiency anemia Check CBC iron levels adjust medications if needed Generalized weakness Most likely from deconditioning patient hardly moves and is very dependent on her daughter for mostof her ADL Encourage patient to move around as much as possible She is up-to-date on immunizations Reviewing her chart addressing all the issues about an doing blood work took over 40 minutes Return to the office in 3 months or as needed Orders Placed This Encounter Procedures Culture urine Hemoglobin A1c Comprehensive metabolic panel Thyroid stimulating hormone with reflex to free t4 and free t3 Vitamin B12 Vitamin D 1,25 dihydroxy Iron and TIBC Magnesium ADDITIONAL ORDERS: None Shilpa Jeffries MD on 09/02/2024 at 12:49 PM EST documented in this encounter Plan of Treatment Upcoming Encounters Date Type Department Care Team ([facility] Contact Info) Description 11/30/2024 2:30 PM EDT Office Visit [address] [address] Maciej Pichardo PA [address] [place] [address] documented as of this encounter Results * Culture urine (09/02/2024 11:07 AM EST) Pathologist [facility] Culture, Urine <10,000 CFU/mL gram positive cocci, insignificant count, no further workup 09/03/2024 11:28 AM EST [facility] Urine Urine specimen from urethra / Unknown Non-blood Collection / Unknown 09/02/2024 11:07 AM EST 09/02/2024 11:07 AM EST Shilpa Jeffries MD LAB MICROBIOLOGY - GENERAL ORDERABLES Final Result Performing Organization Address [facility]/ZIP Co de Phone Number [facility] [address] [place] [address], * Magnesium (09/02/2024 11:07 AM EST) [facility] Magnesium 1.9 1.9 - 2.6 mg/dL LAB CHEMISTRY METHOD 09/02/2024 3:21 PM EST [facility] Blood Venous blood specimen / Unknown Venipuncture / Unknown 09/02/2024 11:07 AM EST 09/02/2024 11:07 AM EST Shilpa Jeffries MD LAB BLOOD ORDERABL ES Final Result [facility] [address] [place] [address], [place] [phone] * Iron and TIBC (09/02/2024 11:07 AM EST) Pathologist [facility] Iron 83 40 - 150 mcg/dL LAB CHEMISTRY METHOD 09/02/2024 3:21 PM EST [facility] TIBC 363 250 - 450 mcg/dL LAB CHEMISTRY METHOD 09/02/2024 3:21 PM EST [facility] Iron Saturation 23 15 - 50 % LAB CHEMISTRY METHOD 09/02/2024 3:21 PM EST [facility] Blood Venous blood specimen / Unknown Venipuncture / Unknown 09/02/2024 11:07 AM EST 09/02/2024 11:07 AM EST Shilpa Jeffries MD LAB BLOOD ORDERABL ES Final Result Performing Organization Address City/[facility]/ZIP Co de Phone Number [facility] [address] [place] [address], [place] [phone] * Vitamin D 1,25 dihydroxy (09/02/2024 11:07 AM EST) Vitamin D, 1, 25-Dihydroxy 69 20 - 79 pg/mL 09/07/2024 10:12 PM EST [facility] Comment: Vitamin D 1, 25 dihydroxy levels should be primarily used to assess Vitamin D status in patients with renal disease and hypercalcemia. Vitamin D 1,25-dihydroxy levels are generally less than 5 pg/mL in end stage renal disease patients. The preferred initial test for assessing Vitamin D status in the general population is Vitamin D 25-hydroxy (VITD). Test performed at [facility], [address] [place], [place] ??[address] ? [phone] Cynthia Campos MD, PhD - Computer Console Operator Blood Venous blood specimen / Unknown Venipuncture / Unknown 09/02/2024 11:07 AM EST 09/02/2024 11:07 AM EST Shilpa Jeffries MD LAB BLOOD ORDERABL ES Final Result [facility] [address] [place] [address] * Vitamin B12 (09/02/2024 11:07 AM EST) Vitamin B-12 412 250 - 900 pcg/mL LAB CHEMISTRY METHOD 09/02/2024 3:42 PM EST [facility] Blood Venous blood specimen / Unknown Venipuncture / Unknown 09/02/2024 11:07 AM EST 09/02/2024 11:07 AM EST Shilpa Jeffries MD LAB BLOOD ORDERABL ES Final Result Performing Organization Address [facility]/ZIP Co de Phone Number [facility] [address] [place] [address], [place] [phone] * Thyroid stimulating hormone with reflex to free t4 and free t3 (09/02/2024 11:07 AM EST) TSH 0.76 0.40 - 4.00 mcIU/mL LAB CHEMISTRY METHOD 09/02/2024 7:18 PM [facility] Blood Venous blood specimen / Unknown Venipuncture / Unknown 09/02/2024 11:07 AM EST 09/02/2024 11:07 AM EST Shilpa Jeffries MD LAB BLOOD ORDERABL ES Final Result Performing Organization Address [facility]/ZIP Co de Phone Number [facility] [address] [place] [address], [place] [phone] * (ABNORMAL) Comprehensive metabolic panel (09/02/2024 11:07 AM EST) Sodium 141 133 - 145 mmol/L LAB CHEMISTRY METHOD 09/02/2024 3:21 PM [facility] Potassium 3.9 3.5 - 5.5 mmol/L LAB CHEMISTRY METHOD 09/02/2024 3:21 PM [facility] Chloride 111(H) 96 - 110 mmol/L LAB CHEMISTRY METHOD 09/02/2024 3:21 PM [facility] CO2 26 21 - 32 mmol/L LAB CHEMISTRY METHOD 09/02/2024 3:21 PM [facility] Anion Gap 4 3 - 11 LAB CHEMISTRY METHOD 09/02/2024 3:21 PM [facility] Glucose 86 70 - 100 mg/dL LAB CHEMISTRY METHOD 09/02/2024 3:21 PM [facility] BUN 21 5 - 25 mg/dL LAB CHEMISTRY METHOD 09/02/2024 3:21 PM [facility] Creatinine 0.96 0.50 - 1.10 mg/dL LAB CHEMISTRY METHOD 09/02/2024 3:21 PM [facility] eGFR 61 >=60 mL/min/1. 73m2 LAB CHEMISTRY METHOD 09/02/2024 3:21 PM [facility] Comment:Calculation based on the??Chronic Kidney Disease Epidemiology Collaboration (CKD-EPI) equation refit??without adjustment for race. BUN/Creatinine Ratio 21.9 LAB CHEMISTRY METHOD 09/02/2024 3:21 PM [facility] Calcium 8.6 8.5 - 10.5 mg/dL LAB CHEMISTRY METHOD 09/02/2024 3:21 PM [facility] AST (SGOT) 15 10 - 42 unit/L LAB CHEMISTRY METHOD 09/02/2024 3:21 PM [facility] ALT (SGPT) 27 10 - 60 unit/L LAB CHEMISTRY METHOD 09/02/2024 3:21 PM [facility] Alkaline Phosphatase 60 42 - 121 unit/L LAB CHEMISTRY METHOD 09/02/2024 3:21 PM [facility] Total Protein 7.1 6.0 - 8.0 g/dL LAB CHEMISTRY METHOD 09/02/2024 3:21 PM [facility] Albumin 3.3 3.2 - 5.0 g/dL LAB CHEMISTRY METHOD 09/02/2024 3:21 PM [facility] Total Bilirubin 0.4 0.0 - 1.4 mg/dL LAB CHEMISTRY METHOD 09/02/2024 3:21 PM [facility] Blood Venous blood specimen / Unknown Venipuncture / Unknown 09/02/2024 11:07 AM EST 09/02/2024 11:07 AM EST Shilpa Jeffries MD LAB BLOOD ORDERABL ES Final Result Performing Organization Address [facility]/ZIP Co de Phone Number [facility] [address] [place] [address], [place] [phone] * Hemoglobin A1c (09/02/2024 11:07 AM EST) Hemoglobin A1C 5.5 <6.5 % LAB CHEMISTRY METHOD 09/02/2024 7:06 PM EST [facility] Mean Bld Glu Estim. 111 mg/dL LAB CHEMISTRY METHOD 09/02/2024 7:06 PM EST [facility] Blood Venous blood specimen / Unknown Venipuncture / Unknown 09/02/2024 11:07 AM EST 09/02/2024 11:07 AM EST Shilpa Jeffries MD LAB BLOOD ORDERABL ES Final Result Performing Organization Address [facility]/ZIP Co de Phone Number [facility] [address] [place] [address], [place] [phone] documented in this encounter Visit Diagnoses Diagnosis Type 2 diabetes mellitus with cataract ([facility])- Primary 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 ([facility]) Vitamin B12 deficiency Other B-complex deficiencies Chronic migraine with aura without status migrainosus, not intractable Urinary tract infection without hematuria, site unspecified Hypothyroidism, unspecified type Vitamin D deficiency Iron deficiency anemia due to chronic blood loss Iron deficiency anemia secondary to blood loss (chronic) Weakness Other malaise and fatigue Non-St Helenian speaking patient documented in this encounter Administered Medications Active Administered Medications - up to 3 most recent administrations Medication Order MAR Action Action Date Dose Rate Site cyanocobalamin (VITAMIN B-12) injection 1,000 mcg 1,000 mcg, intramuscular, Every 30 days, First dose on Sat09/02/24 at 1045, For 180 daysIndications:Vitamin B12 deficiency Given 09/02/2024 12:00 PM EST 1,000 mcg Left Deltoid documented in this encounter Discontinued Medications Medication Sig Discontinue Reason Start Date End Da te cyanocobalamin (VITAMIN B-12) 1,000 mcg/mL injection Inject 1 mL into the muscle every 30 days. Therapy completed 05/24/2023 09/02/2024 lidocaine (LIDODERM) 5 % patch PLACE 1 PATCH ONTO THE SKIN EVERY 24 HOURS.APPLY FOR NO MORE THAN 12 HOURS IN ANY 24 HOUR PERIOD. Therapy completed 06/07/2024 09/02/2024 lidocaine (LIDODERM) 5 % patch PLACE 1 PATCH ONTO THE SKIN EVERY 24 HOURS.APPLY FOR NO MORE THAN 12 HOURS IN ANY 24 HOUR PERIOD. Reorder 07/31/2024 09/02/2024 HYDROcodone-acetaminophe n (NORCO) 5-325 mg per tablet Take 1 Tablet by mouth 4 times daily. Reorder 12/24/2023 09/02/2024 documented as of this encounter Care Teams Box Car Washer Relationship Specialty Start Date End Date Shilpa Jeffries MD [address] [place] [id number] PCP - General Internal Medicine 12/06/16 documented as of this encounter
--- OUTSIDE RECORDS SUMMARY | 2024-09-10 14:55 | XMS_ITS | Encounter Summary ---
Author Organization [facility] Address [address] [place] [address] Care Team Providers Care Ambulance Paramedic Name Role Phone Shilpa Jeffries MD Primary Care Prov ider Reason for Visit * Reason Onset Date Comments prior authorization 08/17/2024 Encounter Details Date Type Department Care Team ([facility] st Contact Info) Description 08/17/2024 Telephone Adult Medicine - [place] [address] [place] [id number] Shilpa Jeffries MD [address], [place] [id number] prior authorization Social History Tobacco Use Types Packs/Day Years [...] as of this encounter Progress Notes * Kranthi Deras MA - 09/01/2024 3:24 PM EST Spoke to Anuj at [facility] she states they already ordered MRI and specialty has no access/ can not get order authorized this has to come from primary care due to patient having [facility]. Anju states this order has to be done externally at [facility] since patient has pacemaker. Birgits once mri is ordered to fax the order to her at [phone] so she can process with [facility]. MRI DX: Message left for Anju to call office back and provide diagnoses for mri. * Shilpa Jeffries MD - 09/01/2024 10:45 AM EST Do they just need a referral for neurology I will not be ordering the MRI this has to be done by the neurologist as I do not have a diagnosis * WOODY Payan - 08/27/2024 12:43 PM EST Ok to wait for pcp. No idea what is happening * Xiao Madison - 08/26/2024 9:45 AM EST [facility] neurology Patient needs prior authorization Was seen on August 12 for 2 month follow up with provider Sachin huizar Due to patient insurance a pcp referral is needed if you need more information contact Daphne at [phone] Mri needs to be done at [facility] PT has a pacemaker Brain mri Procudure code [id number] * Kranthi Deras MA - 08/25/2024 10:48 AM EST Unable to get through with the number listed below for Anju. Please obtain more details for provider when she calls back. * Kranthi Deras MA - 08/24/2024 4:41 PM EST Their office was closed, will retry calling tomorrow. * WOODY Payan - 08/24/2024 12:57 PM EST No idea. I have not seen her for months. * Ysabel Carey - 08/19/2024 1:45 PM EST [facility] calling and states * Aspen Mead - 08/17/2024 2:31 PM EST [facility] CALL Which [facility] office is calling? [facility] neurolog[facility] Full name of caller: Daphne The caller is [employer] senior [employer] Is the caller at the patients home?: no Reason for call: They need prior authorization from provider for code -[id number] Needs to be done at [facility] PT has a pacemaker Does caller need an urgent call back? yes Was CONTACT Telephone # obtained above?: yes Fax #: documented in this encounter Plan of Treatment Upcoming Encounters Date Type Department Care Team (Late st Contact Info) Description 11/30/2024 2:30 PM EDT Office Visit Adult Medicine - [place] [address] [place] [phone] Maciej Pichardo PA [address], [place] documented as of this encounter Visit Diagnoses Not on filedocumented in this encounter Care Teams Ambulance Paramedic Relationship Specialty Start Date End Date Shilpa Jeffries MD [address], [place] PCP - General Internal Medicine 12/06/16 documented as of this encounter
--- OUTSIDE RECORDS SUMMARY | 2024-09-10 14:56 | XMS_ITS | Clinical Summary ---
Author Organization [facility] Address [address] [place] [address] Phone Care Team Providers Care Tree Specialist Name Role Phone Shilpa Jeffries MD Primary Care Prov ider Allergies Active Allergy Reactions Criticality Noted Date Comments Morphine Itching 05/09/2017 Oxycodone Hcl 12/04/2022 Oxycodone-Acetaminophen Itching 03/19/2017 Tramadol Itching 03/19/2017 Medications Daily-Nohemy, with folic acid, 400 mcg tabletIndicati ons:Type 2 diabetes mellitus with diabetic cataract (CMS/HCC) TAKE 1 TABLET BY MOUTH EVERY DAY 90 tablet 1 07/01/20 24 Active clotrimazole (LOTRIMIN) 1 % cream APPLY A SMALL AMOUNT TO AFFECTED AREA TWICE A DAY 05/14/20 24 Active gabapentin (NEURONTIN) 300 mg capsule TAKE 1 CAPSULE BY MOUTH THREE TIMES A DAY 05/14/20 24 Active ergocalciferol (VITAMIN D-2) 1,250 mcg (50,000 unit) capsule Take 1 Capsule by mouth once a week. 04/27/20 24 Active diclofenac (VOLTAREN) 1 % topical gel APPLY 1 APPLICATORFUL TOPICALLY 2 TIMES DAILY. 03/24/20 24 Active bumetanide (BUMEX) 1 mg tablet TAKE 1 TABLET BY MOUTH EVERY OTHER DAY FOR 360 DAYS. 06/21/20 24 Active potassium chloride 20 mEq tablet extended release Take 1 Tablet by mouth every other day for 360 days. 03/24/20 24 025 Active famotidine (PEPCID) 20 mg tablet TAKE 1 TABLET BY MOUTH TWICE A DAY 03/11/20 24 Active losartan (COZAAR) 25 mg tablet Take 1 Tablet by mouth daily. 12/24/19 24 Active multivitamin tablet TAKE 1 TABLET BY MOUTH EVERY DAY 12/12/19 24 Active blood sugar diagnostic (FreeStyle Lite Strips) test strip USE TO TEST TWICE A DAY 11/29/19 24 Active linaCLOtide (Linzess) 290 mcg capsule Take 1 Capsule by mouth daily. 11/21/19 24 Active nystatin-triam cinolone (MYCOLOG II) ointment Apply to affected area BID for up to 2 weeks 10/17/19 24 Active QUEtiapine (SEROquel) 25 mg tablet TAKE 1 TABLET BY MOUTH EVERY DAY AT BEDTIME 09/10/19 24 Active sertraline (ZOLOFT) 100 mg tablet TAKE 1 TABLET BY MOUTH AT BEDTIME 08/07/19 24 Active prednisoLONE acetate (PRED FORTE) 1 % ophthalmic suspension INSTILL 1 DROP INTO BOTH EYES 4 TIMES A DAY 08/14/19 24 Active ferrous sulfate 325 mg (65 mg elemental iron) tablet TAKE 1 TABLET BY MOUTH EVERY DAY 08/23/19 24 Active hydrOXYzine HCL (ATARAX) 25 mg tablet TAKE 1 TABLET BY MOUTH EVERY 6 HOURS NEEDED FOR ITCHING. 08/23/19 24 Active cholecalcifero l (VITAMIN D-3) 50 mcg (2,000 unit) tablet Take 1 Tablet by mouth daily. 06/21/20 23 Active memantine (NAMENDA XR) 7 mg extended release capsule Take 1 Capsule by mouth daily. 04/18/20 23 Active denosumab (PROLIA) 60 mg/mL syringe syringe Inject 60 mg into the skin Once. 05/13/20 23 Active ondansetron (ZOFRAN) 4 mg tablet Take 1-2 Tablets by mouth every 8 hours as needed for Nausea. 03/26/20 23 Active calcium carbonate 1,500 mg (600 mg elemental calcium) tablet Take 1 Tablet by mouth 2 times daily (with meals). 02/12/20 23 Active sertraline (ZOLOFT) 50 mg tablet at bedtime. 11/01/19 23 Active ketoconazole (NIZORAL) 2 % cream 2 times daily. 10/18/19 23 Active terbinafine (LamISIL) 1 % cream Apply to affected and surrounding area(s) once daily until clinical resolution, typically 1 week 10/16/19 23 Active amitriptyline (ELAVIL) 25 mg tablet TAKE 1 TABLET BY MOUTH EVERYDAY AT BEDTIME 09/28/19 23 Active SUMAtriptan (IMITREX) 50 mg tablet TAKE 1 TABLET AT LEAST 2 HOURS BETWEEN DOSES NEEDED ORALLY ONCE A DAY 30 DAYS 08/27/19 23 Active FREESTYLE LANCETS MIS Apply 1 Stick topically 2 times daily. 08/14/19 23 Active blood-glucose meter misc Test Blood Sugar Twice Daily 05/16/20 22 Active acetaminophen (TYLENOL) 325 mg tablet Take 2 Tabs by mouth every 6 hours as needed for Pain for up to 10 days. 11/04/19 20 Active brimonidine (ALPHAGAN) 0.2 % ophthalmic solution 1 Drop 3 times daily. Active cycloSPORINE 0.05 % drops 1 Drop 2 times daily. Active isopropyl alcohoL (Alcoh-Wipe) 70 % towelette Apply 1 Each topically 2 times daily. 02/06/20 17 Active blood-glucose meter kit Test blood sugar bid 02/01/20 17 Active HYDROcodone-ac etaminophen (NORCO) 5-325 mg per tablet Take 1 tablet by mouth every 6 (six) hours if needed for severe pain for up to 28 days. Max Daily Amount: 4 tablets 112 tablet 09/02/19 25 025 Active lidocaine (LIDODERM) 5 % patch Apply topically 1 (one) time each day. 28 patch 3 09/02/19 25 025 Active ZOLMitriptan (ZOMIG) 5 mg tablet Take 1 tablet (5 mg total) by mouth 1 (one) time if needed for migraine. May repeat once after 2 hours. 18 tablet 3 09/02/19 25 026 Active lidocaine (LIDODERM) 5 % patch PLACE 1 PATCH ONTO THE SKIN EVERY 24 HOURS.APPLY FOR NO MORE THAN 12 HOURS IN ANY 24 HOUR PERIOD. 28 patch 2 07/31/19 25 025 Discontin ued(Reord er) lidocaine (LIDODERM) 5 % patch PLACE 1 PATCH ONTO THE SKIN EVERY 24 HOURS.APPLY FOR NO MORE THAN 12 HOURS IN ANY 24 HOUR PERIOD. 11/05/17 24 025 Discontin ued(Thera py completed ) HYDROcodone-ac etaminophen (NORCO) 5-325 mg per tablet Take 1 Tablet by mouth 4 times daily. 12/24/19 24 025 Discontin ued(Reord er) cyanocobalamin (VITAMIN B-12) 1,000 mcg/mL injection Inject 1 mL into the muscle every 30 days. 05/24/20 23 025 Discontin ued(Thera py completed ) Hospital, Clinic, or Other Facility Administered Medication Ordered Dose Route Frequency Start Date End Date Status cyanocobalamin (VITAMIN B-12) injection 1,000 mcgIndications:Vitamin B12 deficiency 1000 mcg IM Every 30 days 08/17/2024 Active cyanocobalamin (VITAMIN B-12) injection 1,000 mcgIndications:Vitamin B12 deficiency 1000 mcg IM Every 30 days 09/02/2024 03/01/2025 Active Active Problems Problem Noted Date Diagnosed Date Non-Mongolian speaking patient 09/02/2024 Diabetic mononeuropathy asso ciated with type 2 diabetes mellitus 08/14/2023 Chronic pain syndrome 08/14/2023 Physical deconditioning 08/14/2023 Hyperlipidemia 08/14/2023 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 01/02/2023 Rosacea 05/16/2022 Stage 3a chronic kidney disease 10/04/2021 Tendonitis of both rotator cuffs 02/06/2021 COVID-19 virus detected 11/02/2019 Overview (08/12/2024): hosp at [facility] 10/29/19 Positive COVID 03/28/2024 History of total knee replacement, right 019 Overview (08/12/2024): Jun 2018 Spondylosis of lumbosacral r egion without myelopathy or radiculopathy 01/03/2018 Vitamin B12 deficiency 11/11/2017 Osteoarthritis of knees, bilateral 04/25/2017 Amaurosis fugax, both eyes 02/05/2017 Overview (08/12/2024): December 2016: Possible due to giant cell arteritis; negative TA biopsy. 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 Biopsy was negative. The CRP never went up much so I don't think this was likely to be PMR or giant cell arteritis. Prednisone tapered off November 2017. Encounters Date Type Department Care Team Description 09/02/2024 10:00 AM EST Office Visit [facility] [address] [place] [id number] Shilpa Burnette MD Type 2 diabetes mellitus with cataract (CMS/HCC) (Primary Dx); 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 (CMS/HCC); Vitamin B12 deficiency; Chronic migraine with aura without status migrainosus, not intractable; Urinary tract infection without hematuria, site unspecified; Hypothyroidism, unspecified type; Vitamin D deficiency; Iron deficiency anemia due to chronic blood loss; Weakness; Non-Mongolian speaking patient 08/17/2024 Telephone Adult [facility] [address] [place] [phone] Shilpa Burnette MD prior authorization 08/17/2024 Telephone Adult Medicine [facility] [address] [place] [phone] Anaya Philip MA from Last 3 Months Immunizations Name Administration Dates Next Due Influenza Quadravalent, MDCK , 0.5ml, with preservative (Flucelvax) 6mo and older 06/17/2017 Influenza trivalent, 0.5mL ( Fluad) 65yo and older 04/27/2024,04/25/2021,05/06/2020,07/20,05/09/2018 iRates SARS-CoV-2 COVID-19, mRNA, LNP-S, preservative free 12/14/2020,11/23/2020 Pneumococcal conjugate 13 va lent (Prevnar 13, PCV13) 2mo and older 06/17/2017 Pneumococcal polysaccharide 23 valent (Pneumovax 23) 2yo and older 01/10/2017 Tdap Tetanus diptheria acell ular pertussis (Boostrix; Adacel) 7yo and older 04/27/2024 Surgical History Surgery Date Site/Laterality Comments OTHER SURGICAL HISTORY PROCEDURE: ---- OTHER ----; COMMENT: spinal stimulator then removed in 2018 TOTAL KNEE ARTHROPLASTY 07/10/2018 Right PROCEDURE: HISTORICAL TOTAL KNEE REPLACE; COMMENT: Dr. Anali BARBOUR Medical History Medical History Date Comments Type 2 diabetes mellitus wit h complication, without long-term current use of insulin ([facility]/HCC) 12/13/2016 DX:Type 2 diabetes mellitus with complication, without long-term current use of insulin ([facility]) Essential hypertension 12/13/2016 DX:Essent ial hypertension Constipation 12/13/2016 DX:Constipation Chronic pain of both knees 12/13/2016 DX:Ch ronic pain of both knees Chronic right shoulder pain 12/13/2016 DX:C hronic right shoulder pain Iron deficiency anemia 12/13/2016 DX:Iron d eficiency anemia Elevated sed rate 12/13/2016 DX:Elevated se d rate Type 2 diabetes mellitus wit h cataract ([facility]/HCC) 12/13/2016 DX:Type 2 diabetes mellitus with cataract ([facility]) Amaurosis fugax, both eyes 02/05/2017 DX:Am aurosis fugax, both eyes Osteoarthritis of knees, bilateral 04/25/2017 DX:Osteoarthritis of knees, bilateral Glaucoma DX:Glaucoma COVID-19 virus detected 11/02/2019 DX:COVID -19 virus detected; COMMENT: hosp at [facility] 10/29/19 Family History Medical History Relation Name Comments Prostate cancer Brother 1 Lung cancer Brother 2 Heart attack Brother 3 Stomach cancer Brother 4 No Known Problems Daughter Lung cancer Father Cataracts Other Lung cancer Sister 1 Coronary artery disease Sister 2 Heart attack Sister 3 Hypertension Son Relation Name Status Comments Brother 1 Brother 2 Brother 3 Brother 4 Brother 5 Alive Daughter Alive Father Mother Other Sister 1 Sister 2 Sister 3 Sister 4 Son Alive Social History Tobacco Use Types Packs/Day Years Used Date Smoking Tobacco: Never Smokeless Tobacco: Never Alcohol Use Standard Drinks/Week Comments No 0 (1 standard drink = 0.6 oz pur e alcohol) Comments No Sex and Gender Information Value Date Recorded Sex Assigned at Not on file Legal Sex Female 3:47 PM EST Gender Identity Not on file Sexual Orientation Not on file Obstetrics History Last Filed Vital Signs Vital Sign Reading Time Taken Comments Blood Pressure 140/85 09/02/2024 10:05 AM EST Pulse 60 09/02/2024 10:05 AM EST Temperature 36.3 ??C (97.4 ??F) 09/02/2024 10:[address] Respiratory Rate - - Oxygen Saturation - - Inhaled Oxygen Concentration - - Weight 89.8 kg (198 lb) 09/02/2024 10:05 AM EST Height 165.1 cm (5' 5 ) 04/27/2024 11:26 AM EDT Body Mass Index 32.95 04/27/2024 11:26 AM EDT Plan of Treatment Upcoming Encounters Date Type Department Care Team (Late st Contact Info) Description 11/30/2024 2:30 PM EDT Office Visit Adult Medicine - [place] [address] [place] [phone] Maciej Pichardo PA [address] [place] [address] Health Maintenance Due Date Last Done Comments Diabetes: Annual Retina Eye Exam 01/26/1958 Zoster Vaccines (1 of 2) 01/26/1998 Depression Screening 07/07/2022 Falls Risk Assessment 07/07/2022 Social Influencers of Health Screening 07/07/2022 RSV Immunization Patients 60+ Years Old (1 - 1-dose 75+ series) 01/26/2023 COVID-19 Vaccine ( season) 2024 09/15/2021, 12/14/2020, 11/23/2020 Diabetes: Blood Sugar Control Test (HGBA1C) 03/02/2025 09/02/2024, 03/27/2024, 03/27/2024 Diabetes: Annual Foot Exam 04/27/2025 04/27/2024 Diabetes: Annual Urine Albumin-Creatinine Ratio (uACR) 09/02/2025 09/02/2024, 08/06/2023 Diabetes: Annual GFR (Glomerular Filtration Rate) 09/02/2025 09/02/2024, 03/27/2024, 03/27/2024 Hypertension/CHF/CAD Annual BMP Blood Test 09/02/2025 09/02/2024, 03/27/2024, 03/27/2024 Cholesterol Screening (Lipid Panel) 08/06/2028 08/06/2023 Osteoporosis Screening (Bone Density Screening) 11/29/2032 11/29/2022, 11/29/2022 DTaP,Tdap,and Td Vaccines (2 - Td or Tdap) 04/27/2034 04/27/2024 Pneumococcal Vaccine: 50+ Years Completed 06/17/2017, 01/10/2017 Hepatitis C Screening Completed 04/27/2024 Influenza Vaccine Completed 04/27/2024, , 05/06/2020, Additional history exists HIB Vaccines Aged Out No longer eligi ble based on patient's age to complete this topic HPV Vaccines Aged Out No longer eligi ble based on patient's age to complete this topic Hepatitis A Vaccines Aged Out No long er eligible based on patient's age to complete this topic Hepatitis B Vaccines Aged Out No long er eligible based on patient's age to complete this topic IPV Vaccines Aged Out No longer eligi ble based on patient's age to complete this topic MMR Vaccines Aged Out No longer eligi ble based on patient's age to complete this topic Meningococcal ACWY Vaccine Aged Out N o longer eligible based on patient's age to complete this topic Meningococcal B Vacine Aged Out No lo nger eligible based on patient's age to complete this topic RSV Immunization Patients Under 20 months Aged Out No longer eligible based on patient's age to complete this topic Varicella Vaccines Aged Out No longer eligible based on patient's age to complete this topic Procedures Procedure Name Priority Date/Time Associated Diagnosis Comments SST - GOLD Routine 09/02/2024 11:21 AM EST Chronic kidney disease, stage II (mild) 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) Benign hypertensive kidney disease with chronic kidney disease, stage 1-4 or unspecified chronic kidney disease Type 2 diabetes mellitus with cataract (CMS/HCC) Vitamin B12 deficiency Vitamin D deficiency Iron deficiency anemia due to chronic blood loss Weakness Urinary tract infection without hematuria, site unspecified PHOSPHORUS Routine 09/02/2024 11:07 AM EST Chronic kidney disease, stage II (mild) 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) Benign hypertensive kidney disease with chronic kidney disease, stage 1-4 or unspecified chronic kidney disease MICROALBUMIN CREATININE URINE RATIO Routine 09/02/2024 11:07 AM EST Chronic kidney disease, stage II (mild) 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) Benign hypertensive kidney disease with chronic kidney disease, stage 1-4 or unspecified chronic kidney disease PARATHYROID HORMONE INTACT Routine 09/02/2024 11:07 AM EST Chronic kidney disease, stage II (mild) 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) Benign hypertensive kidney disease with chronic kidney disease, stage 1-4 or unspecified chronic kidney disease VITAMIN D 25 HYDROXY Routine 09/02/2024 11:07 AM EST Chronic kidney disease, stage II (mild) 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) Benign hypertensive kidney disease with chronic kidney disease, stage 1-4 or unspecified chronic kidney disease MAGNESIUM Routine 09/02/2024 11:07 AM EST Weakness IRON AND TIBC Routine 09/02/2024 11:07 AM EST Iron deficiency anemia due to chronic blood loss VITAMIN D 1,25 DIHYDROXY Routine 09/02/2024 11:07 AM EST Vitamin D deficiency VITAMIN B12 Routine 09/02/2024 11:07 AM EST Vitamin B12 deficiency THYROID STIMULATING HORMONE WITH REFLEX TO FREE T4 AND FREE T3 Routine 09/02/2024 11:07 AM EST Type 2 diabetes mellitus with cataract (CMS/HCC) COMPREHENSIVE METABOLIC PANEL Routine 09/02/2024 11:07 AM EST Type 2 diabetes mellitus with cataract (CMS/HCC) HEMOGLOBIN A1C Routine 09/02/2024 11:07 AM EST Type 2 diabetes mellitus with cataract (CMS/HCC) CULTURE URINE Routine 09/02/2024 11:07 AM EST Urinary tract infection without hematuria, site unspecified HEPATITIS C SCREENING Routine 04/27/2024 DIABETES FOOT EXAM Routine 04/27/2024 LIPID PANEL Routine 08/06/2023 from Last 3 Months or Most Recently Relevant to Health Maintenance Results * SST tube (09/02/2024 11:21 AM EST) Extra Tube Hold for add-ons. 09/02/2024 5:01 PM EST [facility] Comment:Auto resulted. Blood Venous blood specimen / Unknown Venipuncture / Unknown 09/02/2024 11:21 AM EST 09/02/2024 11:21 AM EST Shilpa Jeffries MD LAB BLOOD ORDERABL ES Final Result [facility] [address] [place] [address], [place] [phone] * Thyroid stimulating hormone with reflex to free t4 and free t3 (09/02/2024 11:07 AM EST) TSH 0.76 0.40 - 4.00 mcIU/mL LAB CHEMISTRY METHOD 09/02/2024 7:18 PM EST [facility] Blood Venous blood specimen / Unknown Venipuncture / Unknown 09/02/2024 11:07 AM EST 09/02/2024 11:07 AM EST Shilpa Jeffries MD LAB BLOOD ORDERABL ES Final Result Performing Organization Address [facility]/ZIP Co de Phone Number [facility] [address] [place] [address], [place] [phone] * Iron and TIBC (09/02/2024 11:07 AM EST) Iron 83 40 - 150 mcg/dL LAB CHEMISTRY METHOD 09/02/2024 3:21 PM EST [facility] TIBC 363 250 - 450 mcg/dL LAB CHEMISTRY METHOD 09/02/2024 3:21 PM EST [facility] Iron Saturation 23 15 - 50 % LAB CHEMISTRY METHOD 09/02/2024 3:21 PM EST [facility] Blood Venous blood specimen / Unknown Venipuncture / Unknown 09/02/2024 11:07 AM EST 09/02/2024 11:07 AM EST Shilpa Jeffries MD LAB BLOOD ORDERABL ES Final Result Performing Organization Address City/[facility]/ZIP Co de Phone Number [facility] [address] [place] [address], [place] [phone] * Microalbumin creatinine urine ratio (09/02/2024 11:07 AM EST) Creatinine, Urine 30.0 mg/dL LAB CHEMISTRY METHOD 09/02/2024 6:17 PM EST [facility] Microalb, Ur 6.2 0.0 - 29.0 mg/L LAB CHEMISTRY METHOD 09/02/2024 6:17 PM EST [facility] Microalb/Creat Ratio 21 <30 mg/g creat LAB CHEMISTRY METHOD 09/02/2024 6:17 PM EST [facility] Urine Urine specimen obtained by clean catch procedure / Unknown Non-blood Collection / Unknown 09/02/2024 11:07 AM EST 09/02/2024 11:07 AM EST Edgar Moreno MD LAB URINE ORDERABLES Final Resu lt Performing Organization Address [facility]/ZIP Co de Phone Number [facility] [address] [place] [address], [place] [phone] * Vitamin D 1,25 dihydroxy (09/02/2024 11:07 AM EST) Vitamin D, 1, 25-Dihydroxy 69 20 - 79 pg/mL 09/07/2024 10:12 PM EST [facility] Comment: Vitamin D 1, 25 dihydroxy levels should be primarily used to assess Vitamin D status in patients with renal disease and hypercalcemia. Vitamin D 1,25-dihydroxy levels are generally less than 5 pg/mL in end stage renal disease patients. The preferred initial test for assessing Vitamin D status in the general population is Vitamin D 25-hydroxy (VITD). Test performed at [facility], [address] [place], [place] ??[address] ? [phone] Cynthia Campos MD, PhD - Medical Researcher Blood Venous blood specimen / Unknown Venipuncture / Unknown 09/02/2024 11:07 AM EST 09/02/2024 11:07 AM EST Shilpa Jeffries MD LAB BLOOD ORDERABL ES Final Result Performing Organization Address [facility]/ZIP Co de Phone Number [facility] [address] [place] [address] * (ABNORMAL) Vitamin D 25 hydroxy (09/02/2024 11:07 AM EST) Vit D, 25-Hydroxy 16.4(L) 30.0 - 80.0 ng/mL LAB CHEMISTRY METHOD 09/02/2024 7:17 PM EST [facility] Blood Venous blood specimen / Unknown Venipuncture / Unknown 09/02/2024 11:07 AM EST 09/02/2024 11:07 AM EST Edgar Moreno MD LAB BLOOD ORDERABLES Final Resu lt Performing Organization Address City/[facility]/ZIP Co de Phone Number [facility] [address] [place] [address], * Culture urine (09/02/2024 11:07 AM EST) Culture, Urine <10,000 CFU/mL gram positive cocci, insignificant count, no further workup 09/03/2024 11:28 AM EST [facility] Urine Urine specimen from urethra / Unknown Non-blood Collection / Unknown 09/02/2024 11:07 AM EST 09/02/2024 11:07 AM EST Shilpa Jeffries MD LAB MICROBIOLOGY - GENERAL ORDERABLES Final Result Performing Organization Address [facility] Co de Phone Number [facility] [address] [place] [address], * Phosphorus (09/02/2024 11:07 AM EST) Phosphorus 2.5 2.5 - 4.5 mg/dL LAB CHEMISTRY METHOD 09/02/2024 3:21 PM EST [facility] Blood Venous blood specimen / Unknown Venipuncture / Unknown 09/02/2024 11:07 AM EST 09/02/2024 11:07 AM EST Edgar Moreno MD LAB BLOOD ORDERABLES Final Resu lt Performing Organization Address City/[facility]/ZIP Co de Phone Number [facility] [address] [place] [address], * (ABNORMAL) Parathyroid hormone intact (09/02/2024 11:07 AM EST) PTH 167.4(H) 18.5 - 88.0 pcg/mL LAB CHEMISTRY METHOD 09/02/2024 7:20 PM EST [facility] Blood Venous blood specimen / Unknown Venipuncture / Unknown 09/02/2024 11:07 AM EST 09/02/2024 11:07 AM EST Edgar Moreno MD LAB BLOOD ORDERABLES Final Resu lt [facility] [address] [place] [address], [place] [phone] * Magnesium (09/02/2024 11:07 AM EST) Pathologist [facility] Magnesium 1.9 1.9 - 2.6 mg/dL LAB CHEMISTRY METHOD 09/02/2024 3:21 PM EST [facility] Blood Venous blood specimen / Unknown Venipuncture / Unknown 09/02/2024 11:07 AM EST 09/02/2024 11:07 AM EST Shilpa Jeffries MD LAB BLOOD ORDERABL ES Final Result Performing Organization Address [facility]/ZIP Co de Phone Number [facility] [address] [place] [address], [place] [phone] * Hemoglobin A1c (09/02/2024 11:07 AM EST) [facility] Hemoglobin A1C 5.5 <6.5 % LAB CHEMISTRY METHOD 09/02/2024 7:06 PM EST [facility] Mean Bld Glu Estim. 111 mg/dL LAB CHEMISTRY METHOD 09/02/2024 7:06 PM EST [facility] Blood Venous blood specimen / Unknown Venipuncture / Unknown 09/02/2024 11:07 AM EST 09/02/2024 11:07 AM EST Shilpa Jeffries MD LAB BLOOD ORDERABL ES Final Result Performing Organization Address [facility]/ZIP Co de Phone Number [facility] [address] [place] [address], [place] [phone] * Vitamin B12 (09/02/2024 11:07 AM EST) Vitamin B-12 412 250 - 900 pcg/mL LAB CHEMISTRY METHOD 09/02/2024 3:42 PM [facility] Blood Venous blood specimen / Unknown Venipuncture / Unknown 09/02/2024 11:07 AM EST 09/02/2024 11:07 AM EST us Shilpa Jeffries MD LAB BLOOD ORDERABL ES Final Result [facility] [address] [place] [address], * (ABNORMAL) Comprehensive metabolic panel (09/02/2024 11:07 AM EST) Pathologist [facility] Sodium 141 133 - 145 mmol/L LAB CHEMISTRY METHOD 09/02/2024 3:21 PM [facility] Potassium 3.9 3.5 - 5.5 mmol/L LAB CHEMISTRY METHOD 09/02/2024 3:21 PM [facility] Chloride 111(H) 96 - 110 mmol/L LAB CHEMISTRY METHOD 09/02/2024 3:21 PM [facility] CO2 26 21 - 32 mmol/L LAB CHEMISTRY METHOD 09/02/2024 3:21 PM [facility] Anion Gap 4 3 - 11 LAB CHEMISTRY METHOD 09/02/2024 3:21 PM [facility] Glucose 86 70 - 100 mg/dL LAB CHEMISTRY METHOD 09/02/2024 3:21 PM [facility] BUN 21 5 - 25 mg/dL LAB CHEMISTRY METHOD 09/02/2024 3:21 PM [facility] Creatinine 0.96 0.50 - 1.10 mg/dL LAB CHEMISTRY METHOD 09/02/2024 3:21 PM [facility] [facility] eGFR 61 >=60 mL/min/1. 73m2 LAB CHEMISTRY METHOD 09/02/2024 3:21 PM [facility] Comment:Calculation based on the??Chronic Kidney Disease Epidemiology Collaboration (CKD-EPI) equation refit??without adjustment for race. BUN/Creatinine Ratio 21.9 LAB CHEMISTRY METHOD 09/02/2024 3:21 PM [facility] Calcium 8.6 8.5 - 10.5 mg/dL LAB CHEMISTRY METHOD 09/02/2024 3:21 PM [facility] AST (SGOT) 15 10 - 42 unit/L LAB CHEMISTRY METHOD 09/02/2024 3:21 PM [facility] ALT (SGPT) 27 10 - 60 unit/L LAB CHEMISTRY METHOD 09/02/2024 3:21 PM [facility] Alkaline Phosphatase 60 42 - 121 unit/L LAB CHEMISTRY METHOD 09/02/2024 3:21 PM [facility] Total Protein 7.1 6.0 - 8.0 g/dL LAB CHEMISTRY METHOD 09/02/2024 3:21 PM [facility] Albumin 3.3 3.2 - 5.0 g/dL LAB CHEMISTRY METHOD 09/02/2024 3:21 PM [facility] Total Bilirubin 0.4 0.0 - 1.4 mg/dL LAB CHEMISTRY METHOD 09/02/2024 3:21 PM [facility] Blood Venous blood specimen / Unknown Venipuncture / Unknown 09/02/2024 11:07 AM EST 09/02/2024 11:07 AM EST us Shilpa Jeffries MD LAB BLOOD ORDERABL ES Final Result [facility] [address] [place] [address], * Hepatitis C Screening (04/27/2024) Pathologist [facility] Hepatitis C Screening Abstracted Historical Provider HEALTH MAINTENANCE Final Result * Hm Diabetes Foot Exam (04/27/2024) Diabetes: Annual Foot Exam Abstracted Historical Provider HEALTH MAINTENANCE Final Result * (ABNORMAL) Lipid panel (08/06/2023) LDL/HDL Ratio 4 0 - 4 Triglycerides 139 0 - 150 mg/dL Cholesterol 349(A) 0 - 200 mg/dL HDL 80 >=40 mg/dL LDL Cholesterol 242(A) 0 - 100 mg/dL Blood Venous blood specimen / Unknown Historical Provider LAB BLOOD ORDERABLES Sarah l Result from Last 3 Months or Most Recently Relevant to Health Maintenance Insurance MEDICAID - [place] Care Teams Tree Specialist Relationship Specialty Start Date End Date Shilpa Jeffries MD [address] [place] [id number] PCP - General Internal Medicine 12/06/16
--- OUTSIDE RECORDS SUMMARY | 2024-09-10 14:56 | XMS_ITS | Clinical Summary ---
Author Organization [facility] Address [address] [place] [address] Care Team Providers Care Work And Family Life Consultant Name Role Phone GuzmanAsh dozier [place] Primary Care Provider [phone] Source Comments PLEASE NOTE, if this patient is a minor, it may be UNLAWFUL to discuss sensitive information that is contained in these records (such as FAMILY PLANNING, MENTAL HEALTH or SUBSTANCE ABUSE) with the minor patient's parent or other person without the patient's specific authorization.[facility] Social History Tobacco Use Types Packs/Day Years Used Date Smoking Tobacco: Never Assessed Social Connections Answer Date Recorded Social Connections and Isolation 0 03/23/2019 Financial Resource Strain Answer Date R ecorded Financial Resource Strain 0 2018 Stress Answer Date Recorded Stress 0 03/23/2019 Physical Activity Answer Date Recorded Physical Activity 0 03/23/2019 Food Insecurity Answer Date Recorded Food 0 03/23/2019 Transportation Needs Answer Date Record ed Transportation 0 03/23/2019 Housing Stability Answer Date Recorded Housing 0 03/23/2019 Safety and Environment Answer Date Noel rded Safety 0 03/23/2019 Utilities Answer Date Recorded Utilities 0 03/23/2019 Employment Answer Date Recorded Employment 0 03/23/2019 Comments Unknown Sex and Gender Information Value Date Recorded Sex Assigned at Female 07/19/2017 8:21 AM PST Legal Sex Female 11:29 AM PST Gender Identity Female 07/19/2017 8:21 AM PST Sexual Orientation Straight 07/19/2017 8: 21 AM PST Last Filed Vital Signs Vital Sign Reading Time Taken Comments Blood Pressure - - Pulse - - Temperature - - Respiratory Rate - - Oxygen Saturation - - Inhaled Oxygen Concentration - - Weight 100.7 kg (222 lb) 07/19/2017 11:20 AM EST Height 157.5 cm (5' 2 ) 07/19/2017 11:20 AM EST Body Mass Index 40.6 07/19/2017 11:20 AM EST Plan of Treatment Not on file Insurance [place] MEDICAID Care Teams Work And Family Life Consultant Relationship Specialty Start Date End Date [address] [place] [address] PCP - General Nutrition 07/05/17
--- OUTSIDE RECORDS SUMMARY | 2024-09-10 14:56 | XMS_ITS | Referral Summary ---
Author Organization [facility] Address [address] [place] [address] Care Team Providers Care Information Support Project Manager Name Role Phone Shilpa Jeffries Primary [...] Mass Index - - Plan of Treatment Not on file Procedures * Due to [place] [employer] Pre[employer] law, this organization might not be sharing negative HIV tests. Procedure Name Priority Date/Time Associated Diagnosis Comments DEXA BONE DENSITY AXIAL Routine 11/29/2022 2:46 PM EDT Age-related osteoporosis with current pathological fracture, sequela from Last 3 Months or Most Recently Relevant to Health Maintenance Results * Due to [place] [employer] Pre[employer] law, this organization might not be sharing [...] obtain the completed interpretation. ? Workstation ID: [id number] Narrative 11/30/2022 12:47 PM EDT EXAM: ??BONE MINERAL DENSITY INDICATION: Osteoporosis M80.00XS - I10 - Age-related osteoporosis with current pathological fracture, unspecified site, sequela PROCEDURE: ??The bone mineral density (BMD) of the spine and proximal right femur was determined using an external X-ray source([employer]). SITE: [facility] FINDINGS: L1-L4: ??BMD 0.93gm/cm2 ?? [...] help protect against falls. Resulting Agency Comment [id number] Procedure Note Jerod Kwan MD - 11/30/2022 EXAM: BONE MINERAL DENSITY INDICATION: Osteoporosis M80.00XS - I10 - Age-related osteoporosis withcurrent pathological fracture, unspecified site, sequela PROCEDURE: The bone mineral density (BMD) of the spine and proximal rightfemur was determined using an external X-ray source([employer]). SITE: [facility] FINDINGS: L1-L4: BMD 0.93gm/cm2 T-Score -1.1 Z-score: [...] possible to obtain thecompleted interpretation. Workstation ID: [id number] Ricky Wynn MD IMG DXA PROCEDURES Final Resu lt from Last 3 Months or Most Recently Relevant to Health Maintenance Insurance [facility] [address] Care Teams Information Support Project Manager Relationship Specialty Start Date End Date Shilpa Jeffries PCP - General Internal Medicine 09/20/22
--- NOTE | 2024-09-10 14:58 | MHC.OFFVIS ---
Vital Signs 09/10/24 15:05 Height 5 ft 2 in Weight 195 lb 8.8 oz BMI 35.8 BP 140/64 H Blood Pressure Location Rt brachial Position Sitting Respiration 16 Pulse 63 Pulse Source Pulse Oximeter Pulse Oximetry (%) 99 Oxygen Delivery Method Simple Mask Intake Visit Reasons: OA/inj Intake Note: Patient prfesents for OA and injection. Cigar Sorter Required: Yes Cigar Sorter Language: Monegasque Cigar Sorter Services: Cigar Sorter Offered & Declined Cigar Sorter Name: Michelle Finch Information Interpreted: non-clinical & clinical Sewer Digger: Sewer Digger Present Accompanied by: Daughter Allergies oxycodone [From Percocet] Allergy (Unknown, Verified 09/10/24 15:04) Itching morphine Allergy (Intermediate, Uncoded 08/12/24 15:30) itching oxycodone Allergy (Intermediate, Uncoded 08/12/24 15:30) Itching tramadol Allergy (Intermediate, Uncoded 08/12/24 15:30) Itching Medication List - Last Reconciled 09/10/24 by Mindy Cadena MD ammonium lactate 12% appl topical BID atorvastatin 40 mg PO DAILY blood sugar diagnostic (FreeStyle Lite Strips) As directed bumetanide 1 mg PO Q OTHER DAY cholecalciferol (vitamin D3) 50 mcg PO QAM clotrimazole 1% appl topical BID cyanocobalamin (vitamin B-12) 100 mcg IM Q4W diclofenac sodium 1% (Arthritis Pain (diclofenac)) 2 grams topical QID ergocalciferol (vitamin D2) 1,250 mcg PO QWEEK famotidine (Pepcid) 20 mg PO BID ferrous sulfate 325 mg PO DAILY gabapentin 300 mg PO TID hydrocodone-acetaminophen 5-325 mg 1 tab PO Q6H PRN hydroxyzine HCl 25 mg PO TID PRN indapamide 2.5 mg PO BEDTIME lactulose 20 grams PO TID lancets (FreeStyle Lancets) As directed lidocaine 5% 1 patch topical DAILY linaclotide (Linzess) 290 mcg PO DAILY lorazepam 0.5 mg PO ONCE PRN losartan 25 mg PO DAILY loteprednol etabonate 0.5% (Lotemax) 1 appl ophthalmic (eye) QPM magnesium oxide 400 mg PO DAILY 90 days melatonin 3 mg PO BEDTIME 90 days memantine 10 mg PO BID multivitamin with folic acid 400 mcg (Daily-Nohemy (with folic acid)) 1 tab PO DAILY ondansetron HCl 4 mg PO Q8H PRN pioglitazone (Actos) 30 mg PO BID potassium chloride ER 10 mEq PO BID quetiapine 1.5tabs qhs orally bedtime; 90 days repaglinide 2 mg PO BID riboflavin (vitamin B2) 400 mg PO DAILY 90 days sertraline 100 mg PO BEDTIME tobramycin-dexamethasone 0.3-0.1 % (TobraDex) ophthalmic (eye) TID tobramycin-dexamethasone 0.3-0.1 % 1 drp ophthalmic (eye) TID zolmitriptan take 1 tab at onset of headache; if no relief, may repeat 1 tab after at least 2 hrs; max = 2 tabs/24 hrs PO zolmitriptan take 1 tab at onset of headache; if no relief, may repeat 1 tab after at least 2 hrs; max = 2 tabs/24 hrs PO HPI Comments Details: Patient is a 74-year-old female with hyperlipidemia, hypertension, fibromyalgia, osteoporosis and polyarticular osteoarthritis here today for follow up Interval History: Patient last seen 04/22/[address] Cornelius. At that time she was not feeling well reporting bilateral shoulder pain. At that time she received bilateral shoulder and left knee cortisone injections. Today she is here with daughter Daughter states that she has been having overwhelming fatigue and weakness. Feels that her upper body and lower body is weak. Had recent MRI 07/2024 which did not show any evidence of stroke just chronic microvascular changes. Complains of bilateral shoulder and left knee pain Also complaining of easy bruising Rheumatologic History: OA Osteoporosis Current Rheumatology Medication(s): Prolia 60 mg SC every 6 months [facility] Medical History Hallucinations Dementia Pacemaker Tendonitis of both rotator cuffs Hypertension CKD (chronic kidney disease) Type 2 diabetes mellitus Osteoarthritis of knee Surgical History History of back surgery History of total right knee replacement (TKR) Family History Father Lung cancer Son Hypertension Brother Prostate cancer Brother Lung cancer Brother Myocardial infarction Social History (Reviewed 09/10/24 @ 15:05 by ZENA Head Household Members: Family Housing: House Are you a primary resident care technician to a significant other at home: No Do you presently have visiting nurse or other home services: No 75 years or older and lives alone: No Alcohol intake: never Patient Tobacco Use Status: Never used Tobacco e-Cigarette/Vaping Use: Never Used service: No Current occupational status: retired Review of Systems Const Details: Review of Systems Constitutional: Denies fever, chills, weight loss ENT: Denies vision changes, eye pain or eye redness, dental caries, dry mouth GI: Denies nausea, vomiting, diarrhea, abdominal pain, change in BM Pulm: Denies SOB, YOON, hemoptysis, wheezing Cards: Denies chest pain, palpitations Skin: Denies Raynaud's, rash, nail changes, photosensitivity, AUTOMOTIVE WINDOW TINTER: Denies headaches, weakness, paresthesias, recurrent falls MSK: as per HPI All other systems reviewed and are unremarkable except noted above Physical Exam Vital Signs: Last Vital Signs Pulse 63 09/10/24 15:05 Resp 16 09/10/24 15:05 BP 140/64 H 09/10/24 15:05 Pulse Ox 99 09/10/24 15:05 Oxygen Delivery Method Simple Mask 09/10/24 15:05 BMI result Body Mass Index 35.8 Vital signs reviewed Physical Examination CONSTITUITIONAL Frail elderly female Examined in wheel chair MSK Hands: No deformities noted. No synovitis noted to the MCPs, PIPs or DIPs. No tenderness to palpation of these joints. Wrists: Full range of motion at the wrists without pain. No tenderness to palpation or synovitis noted to the wrists. Elbows: Decreased ROM of the right elbow. Full ROM of the left elbow Shoulders: Decreased ROM bilaterally to active ROM. TTP of the subacromial bursa Knees: Full range of motion. No tenderness, swelling, increased warmth or erythema.?No effusion or crepitations SKIN scattered echymosis Office Procedures AMB Joint Injection/Aspiration Joint Injection/Aspiration Details: Procedure was explained to the patient and consent was obtained. ? The area of interest was identified and confirmed with patient. ?This was subsequently cleaned with chlorhexidine x3. ? The area was then anesthetized using ethyl chloride spray. 40 mg Kenalog with 1 cc 1% lidocaine was injected without issue. ?Minimal to no bleeding. ?Patient tolerated procedure. Primary Site: right shoulder Prep: site was prepped using aseptic technique and ethochloride spray was applied Injected: 40 mg of, Kenalog, with 1 mL of and 1% plain lidocaine Approach Used: other Procedure: The patient tolerated the procedure well Coding 39162 - Large joint Procedure code (CPT) selection complete AMB Joint Injection/Aspiration Joint Injection/Aspiration Details: Procedure was explained to the patient and consent was obtained. ? The area of interest was identified and confirmed with patient. ?This was subsequently cleaned with chlorhexidine x3. ? The area was then anesthetized using ethyl chloride spray. 40 mg Kenalog with 1 cc 1% lidocaine was injected without issue. ?Minimal to no bleeding. ?Patient tolerated procedure. Primary Site: left shoulder Prep: site was prepped using aseptic technique and ethochloride spray was applied Injected: 40 mg of, Kenalog, with 1 mL of and 1% plain lidocaine Approach Used: other Procedure: The patient tolerated the procedure well Coding 78293 - Large joint Procedure code (CPT) selection complete AMB Joint Injection/Aspiration Joint Injection/Aspiration Details: Procedure was explained to the patient and consent was obtained. ? The area of interest was identified and confirmed with patient. ?This was subsequently cleaned with chlorhexidine x3. ? The area was then anesthetized using ethyl chloride spray. 40 mg Kenalog with 1 cc 1% lidocaine was injected without issue. ?Minimal to no bleeding. ?Patient tolerated procedure. Primary Site: left knee Prep: site was prepped using aseptic technique and ethochloride spray was applied Injected: 40 mg of, Kenalog, with 1 mL of and 1% plain lidocaine Approach Used: lateral parapatellar Procedure: The patient tolerated the procedure well Coding 03267 - Large joint Procedure code (CPT) selection complete Office Meds Prolia 60 mg/mL subcutaneous syringe Performing Provider: Mindy Cadena MD Performing Location[place] [facility] Administered by: Angeliac Peterson RN on 09/10/24 15:27 Dose Route Admin Location Dispensed Lot Number Expiration Date NDC Cloth Bin Packer 60 mg subcut left upper arm 1 mL [id number] 02/25/27 71425-334-44 [employer] Comments: Consent form signed by patient. Pt tolerated injection well and daughter denies any adverse reactions with previous injections. Per Dr. Surinder fletcher to give two weeks early. Dr Cadena reviewed blood work brought in by daughter and stated okay to proceed with injection. Lab results were scanned into patient chart. Dr. Cadena stating okay to give prolia even if pt is receiving intra articular injections. lidocaine (PF) 10 mg/mL (1 %) injection solution Performing Provider: Mindy Cadena MD Performing Location: [facility] Administered by: Mindy Cadena MD on 09/11/24 12:01 Dose Route Admin Location Dispensed Lot Number Expiration Date ND Cloth Bin Packer 1 mL Infiltration right shoulder 2 mL [id number] 10/27/26 69768-606-84 [employer] Kenalog 40 mg/mL suspension for injection Performing Provider: Mindy Cadena MD Performing Location: [facility] Administered by: Mindy Cadena MD on 09/11/24 12:01 Dose Route Admin Location Dispensed Lot Number Expiration Date [facility] Cloth Bin Packer 40 mg intra-articular 1 mL [id number] 01/26/27 [address]-3 [employer] lidocaine (PF) 10 mg/mL (1 %) injection solution Performing Provider: Mindy Cadena MD Performing Location: [facility] Administered by: Mindy Cadena MD on 09/11/24 12:01 Dose Route Admin Location Dispensed Lot Number Expiration Date ND Cloth Bin Packer 1 mL Infiltration left shoulder 2 mL [id number] 10/27/26 37828-717-26 FRESENIUS KABI Kenalog 40 mg/mL suspension for injection Performing Provider: Mindy Cadena MD Performing Location: [facility] Administered by: Mindy Cadena MD on 09/11/24 12:01 Dose Route Admin Location Dispensed Lot Number Expiration Date [facility] Cloth Bin Packer 40 mg intra-articular left shoulder 1 mL [id number] 01/26/26 [address]-0 [employer] lidocaine (PF) 10 mg/mL (1 %) injection solution Performing Provider: Mindy Cadena MD Performing Location: [facility] Administered by: Mindy Cadena MD on 09/11/24 12:01 Dose Route Admin Location Dispensed Lot Number Expiration Date [facility] Cloth Bin Packer 1 mL Infiltration left knee 2 mL [id number] 10/27/26 21402-822-14 FRESENI[employer] K[employer]I Kenalog 40 mg/mL suspension for injection Performing Provider: Mindy aCdena MD Performing Location: [facility] Administered by: Mindy Cadena MD on 09/11/24 12:01 Dose Route Admin Location Dispensed Lot Number Expiration Date NDC Cloth Bin Packer 40 mg intra-articular left knee 1 mL [id number] 01/26/26 [address]-3 [employer] Results Reviewed Results Reviewed: Scanned labs reviewed Assessment & Plan Assessment & Plan (1) Frail elderly: Code(s): R54 - Age-related physical debility Plan: #Frail Elderly with severe deconditioning Patient is a 74-year-old frail elderly lady who presents with her daughter for evaluation of polyarticular joint pains and overall weakness. Patient has had brain MRI and other lab investigations which has not found an organic cause of her weakness. I think her weakness is multifactorial I think she has some depression which causes a lack of motivation to move. I also think that because of her depression and lack of movement she has become severely deconditioned and that much more weak. I do not see an underlying rheumatologic cause for her weakness at this time. I discussed this with the daughter and recommended physical therapy but daughter says that she feels that the physical therapy is not robust enough for her. Plan - Recommend physical therapy (2) Osteoporosis: Comment: 11/2022 DEXA at [facility] T scores: Hip -3.0, LS spine -1.1 Prolia started 07/2023 Code(s): M81.0 - Age-related osteoporosis without current pathological fracture Category: Medical Qualifiers: Osteoporosis type: age-related Presence of current pathological fracture: without current pathological fracture Qualified Code(s): M81.0 - Age-related osteoporosis without current pathological fracture Plan: #Osteoporosis Patient with osteoporosis has a hip. No previous history of falls or fractures. No current history of falls or fractures. Received Prolia dose today Plan - Prolia in 6 months - Labs before next prolia: CBC, CMP, Vitamin D (3) Osteoarthritis of shoulders, bilateral: Code(s): M19.011 - Primary osteoarthritis, right shoulder; M19.012 - Primary osteoarthritis, left shoulder Category: Medical Qualifiers: Osteoarthritis type: primary Qualified Code(s): M19.011 - Primary osteoarthritis, right shoulder; M19.012 - Primary osteoarthritis, left shoulder Plan: #Bilateral shoulder OA Patient with bilateral shoulder OA S/p bilateral injections to the subacromial bursa RTC 4 months for reeval and repeat injections if needed (4) Osteoarthritis of left knee: Code(s): M17.12 - Unilateral primary osteoarthritis, left knee Category: Medical Qualifiers: Osteoarthritis type: primary Qualified Code(s): M17.12 - Unilateral primary osteoarthritis, left knee Plan: #Bilateral knee OA S/p Right knee replacement Not interested in left knee replacement s/p left knee steroid injection RTC 4 months for reeval and repeat injections if needed Plan I spent 30 minutes reviewing the record and labs, taking a history, examining the patient, discussing the treatment plan and documenting in the medical record Orders: Orders AMB Joint Injection/Aspiration 09/10/24 M19.011 - Primary osteoarthritis, right shoulder, M19.012 - Primary osteoarthritis, left shoulder AMB Joint Injection/Aspiration 09/10/24 M19.011 - Primary osteoarthritis, right shoulder, M19.012 - Primary osteoarthritis, left shoulder AMB Denosumab Injection Practice Supplied 09/10/24 M81.0 - Age-related osteoporosis without current pathological fracture AMB Joint Injection/Aspiration 09/10/24 M17.12 - Unilateral primary osteoarthritis, left knee Medications: New Kenalog (triamcinolone acetonide) 40 mg intra-articular ONCE 1 mL 0RF NS M19.011 - Primary osteoarthritis, right shoulder, M19.012 - Primary osteoarthritis, left shoulder Kenalog (triamcinolone acetonide) 40 mg intra-articular ONCE 1 mL 0RF NS M17.12 - Unilateral primary osteoarthritis, left knee lidocaine (PF) 1 mL Infiltration ONCE 2 mL 0RF M19.011 - Primary osteoarthritis, right shoulder, M19.012 - Primary osteoarthritis, left shoulder lidocaine (PF) 1 mL Infiltration ONCE 2 mL 0RF M19.011 - Primary osteoarthritis, right shoulder, M19.012 - Primary osteoarthritis, left shoulder Kenalog (triamcinolone acetonide) 40 mg intra-articular ONCE 1 mL 0RF NS M19.011 - Primary osteoarthritis, right shoulder, M19.012 - Primary osteoarthritis, left shoulder lidocaine (PF) 1 mL Infiltration ONCE 2 mL 0RF M17.12 - Unilateral primary osteoarthritis, left knee Coding Level of Care Code Est Pt Level 4 (55676) Diagnoses Frail elderly R54 Age-related osteoporosis without current pathological fracture M81.0 Osteoporosis type: age-related Presence of current pathological fracture: without current pathological fracture Primary osteoarthritis of both shoulders M19.011; M19.012 Osteoarthritis type: primary Primary osteoarthritis of left knee M17.12 Osteoarthritis type: primary CPT Codes Coding - 97041 Large joint: 06266 - Large joint ([id number]) Coding - 52308 Large joint: 96492 - Large joint ([id number]) Coding - 97245 Large joint: 47229 - Large joint ([id number])
[2024-09-10 15:05] VITALS: BP 140/64; PULSE 63; RESP 16; O2SAT 99; BMI 35.8
== END 2024-09-10 16:20 | disposition home or self-care (01) ==
PROVIDERS: PCP Internal Medicine; Visit Provider Student in an Organized Health Care Education/Training Program
DX: M81.0 Age-related osteoporosis without current pathological fracture (principal)

== ENCOUNTER → 2024-09-10 14:53 | Outpatient (BNVA) | payer MEDICAID, SELFPAY | PROVIDERS: PCP Internal Medicine; Visit Provider Student in an Organized Health Care Education/Training Program | DX: M81.0 Age-related osteoporosis without current pathological fracture (principal); M19.011 Primary osteoarthritis, right shoulder; M19.012 Primary osteoarthritis, left shoulder; M17.12 Unilateral primary osteoarthritis, left knee; R54 Age-related physical debility | CPT/HCPCS: 20610; 96372; 99212; J0897; J3300 ==

== ENCOUNTER 2024-11-18 14:46 | Outpatient (AMB) | payer MEDICAID, SELFPAY ==
[2024-11-18 14:51] VITALS: PULSE 83; O2SAT 98; BMI 37.5
--- NOTE | 2024-11-18 14:51 | A.OFFVIS_ITS ---
Vital Signs 11/18/24 14:51 Height 5 ft 2 in Weight 205 lb BMI 37.5 Pulse 83 Pulse Source Pulse Oximeter Pulse Oximetry (%) 98 Oxygen Delivery Method Room Air Intake Visit Reasons: 3mon follow-up Intake Note: Patient presents follow up Headaches/Dementia. MRI scheduled 11/17/24. Labs in chart. Supervisor [employer] Department Required: Yes Super[employer] Department Services: Supervisor [employer] Department Offered & Declined Supervisor [employer] Department Name: Daughter Accompanied by: Daughter Allergies oxycodone [From Percocet] Allergy (Unknown, Verified 11/18/24 14:56) Itching morphine Allergy (Intermediate, Uncoded 08/12/24 15:30) itching oxycodone Allergy (Intermediate, Uncoded 08/12/24 15:30) Itching tramadol Allergy (Intermediate, Uncoded 08/12/24 15:30) Itching HPI Comments Details: Patient is a 74-year-old Panamanian speaking female with cognitive deficits, neuropathy, and hypertension, today she is here for a f/u of recent MRI. Her daughter Michelle helps with interpretation and history today as patient has cognitive deficits. Interval History: Patient last seen 04/22/[address] Cornelius. At that time she did not feel well and reported bilateral shoulder pain, she received cortisone injections in bilateral shoulder and left knee, for osteoarthritis. She went to PT at [address] for 4 weeks, she continued heat and ice therapy along with massages and could not tolerate the stationary bike as she had difficulty with ankle flexion / extension due to pain, she felt off balance, and she has difficulty ambulating, she is wheel chair bound due to risk of falls. Today Michelle brings her in to review results from her recent MRI from [facility], and c/o cognitive deficits, due to STM and LTM loss. She is slow to answer questions, gets confused and needs redirection, and visual cuing repeatedly. She gets lost in conversation and doesn't understand conversations, difficulty with orientation, focusing, reading and writing. She forgets to eat her meals and take medications and or will take medications twice a day if not supervised. She needs help with all her ADLs, such as showering, bathing, dressing, eating, and meals. She sleeps in a bed that is elevated because she has difficulty breathing at night, feels claustrophobic, continues to have panic attacks with visual hallucinations and seeing animals, cats, snakes, dogs, running through her room. She has had falls when ambulating to the bathroom at night with easy bruising. Her mood is irritable at base line she doesn't sleep well at night as she continues to have insomnia and wandering behavior, with incontinence. She has a pacemaker and she sleeps on her r. side predominantly or her back with multiple pillows. Her speech is limited, she has difficulty swallowing food, coughs and chokes, she has trouble with solids not liquids. She continues to drool at night. She has hearing aids and pulls them out because she gets confused as to why she needs to wear them and refuses to wear them. She c/o daily headaches which improve with zolmitriptan, and can develop into a full migraine if not well controlled. She continues to be depressed because of chronic pain and takes sertraline for depression, quetiapine for continued visual hallucinations, denies auditory hallucinations. She takes lorazapem 0.5mg for anxiety as needed along with gabapentin for peripheral neuropathy bilaterally upper extremity and lower extremities. She has constipation at baseline, has tried milk of magnesia, Miralax, Senna, Psylium husk and Linzess. She has CKD with T2DM and continues to have urgency and frequency for the last 10 days, denies hematuria, we discussed dropping off a urine culture to her pcp for antibiotics today. Daughter states that she has been overwhelmed with helping her mom transit from bed to wheel chair and wheel chair to bed. October 2017, MRI Minor subcortical white matter abnormality of doubtful significant, with punctate lesions subcorticate periventricular white matter and 1cm flair hyperintense lesion superior to posterior margin of sylvian tissue with in the subcortical white matter. MRI 07/2024 which did not show any evidence of stroke, she did have mild chronic micro-vascular ischemic changes. MRI 10/2024 No acute infarcts, mass effect, or hemorraghes noted, mild T2 flair hyperintense foci in the white matter most likely reflecting chronich small vessel disease, with mild volume loss. She complains chronic bilateral shoulder and left knee pain, upon ambulating feels off balance, had 4 sessions of Physical therapy, continues to be off balance. Rheumatologic History: Fibromyalgia:Bilateral knee pain moderate to severe with osteoarthritis of patellofemoral joint L. knee greater than r. knee (TKR). Jul 2021 Shoulders bilateral pain has cortisone injections every 3 months r. shoulder degenerative changes in a/c joint, and l. shoulder glenohumeral joint degenerative changes. She sees pain management in [facility] and has cortisone u/s guided injections in her low back for pain. Neuropathy feet bilateral Gabapentin 300mg PO TID Prolia 60mg SC every 6 months per Rheumatology for osteoporosis. Hypertension with CKD and T2 DM Losartan 25mg po daily, indapaminde 2.5mg po daily, ammonium lactate 12% BID, Atorvastatin 40mg po daily, bumetadine 1mg po q other day, Pioglitazone 30mg PO BID, Potassium chloride ER 10mEq PO BID, Replaglinide 2mg PO BID. [facility] Medical History Hallucinations Dementia Pacemaker Tendonitis of both rotator cuffs Hypertension CKD (chronic kidney disease) Type 2 diabetes mellitus Osteoarthritis of knee Surgical History History of back surgery History of total right knee replacement (TKR) Family History Father Lung cancer Son Hypertension Brother Prostate cancer Brother Lung cancer Brother Myocardial infarction Social History Household Members: Family Housing: House Are you a primary personal care home administrator to a significant other at home: No Do you presently have visiting nurse or other home services: No 75 years or older and lives alone: No Alcohol intake: never Patient Tobacco Use Status: Never used Tobacco e-Cigarette/Vaping Use: Never Used service: No Current occupational status: retired Review of Systems Const All systems reviewed & are unremarkable except as noted in HPI and below Neuro Reports Abnormal speech present, Reports behavioral changes, Reports confusion, Reports focal weakness and Reports Other visual disturbances Psych Reports behavioral changes, Reports change in appetite, Reports confusion and Reports hallucinations Physical Exam Vital Signs: Last Vital Signs Pulse 83 11/18/24 14:51 Pulse Ox 98 11/18/24 14:51 Oxygen Delivery Method Room Air 11/18/24 14:51 BMI result Body Mass Index 37.5 Panamanian patient, disoriented with confusion and is non verbal, nods when daughter speaks to her. Const General: no acute distress, anxious and confusion Nutritional Appearance: average body habitus Orientation/consciousness: oriented to time and confusion HEENT Face and sinus: Yes normal facial exam and Yes face symmetric Teeth and gingiva: other (Tremor of the tongue) Eyes Pupils: Equal, round and reactive pupils present Resp Effort & Inspection: normal respiratory effort Neuro General: oriented to time, confusion and Unable to assess gait Cranial nerves: Yes CN's II-XII intact bilaterally, Yes Facial sensation intact/muscles of mastication intact, Yes Equal, round and reactive pupils present, Yes Normal accommodation reflex present, Yes Bilaterally intact EOM present, Yes Nystagmus not present, Yes Midline tongue present, Yes Ability to bilaterally rotate head present (Limited ROM to the L>R) and Yes Ability to bilaterally elevate shoulders present (Pain is elicite on shrug) Speech: Abnormal speech present and Other speech findings present (Neuro) (non verbal) Gait exam (Neuro): Unable to assess gait, Assistive device used and Other gait observations present (Wheelchair bound, uses walker to ambulate at home.) Motor exam (neuro): Normal motor muscle tone present throughout, Abnormal motor strength present (3/5 upper and lower extremity), Pronator motor function present, Tremors during motor activity present (UE bilaterally into the R. hand more pronounced.), Abnormal muscle tone present and Motor abnormalites present Sensory Exam: Upper extremity sensory exam abnormal Deep tendon reflexes (DTR's): Right triceps reflex intensity grade: 2+, Left triceps reflex intensity grade: 2+, Rt Biceps (C5, C6): 2+, Left biceps reflex intensity grade: 2+, Right brachioradialis reflex intensity grade: 2+ and Left brachioradialis reflex intensity grade: 2+ Coordination: [id number] test normal (overshoots and undershoots ) and rapid alternating movements of the distal lower extremity normal (unable to follow/ slowed hand movements and slowed fine motor coordination) Psych Appearance: grossly normal Speech and movement: Slowed movement present (Neuro) and Other speech and movement exam findings present (Psych) (nonverbal) Attitude: cooperative Insight: Fair insight present (Psych) Judgement: Fair judgement present (Psych) Results Reviewed Results Reviewed: MRI 11/20/2024 with [facility] Impression: No hemorrhages, mass effect or midline shift noted. Mild T2 flair with hyperintenese foci in the white matter, most likely refelecting chronic sm. vessel disease and mild volume loss. Assessment & Plan Assessment & Plan (1) Hallucinations: Code(s): R44.3 - Hallucinations, unspecified Category: Medical (2) Dementia: Comment: mixed, vascular Code(s): F03.90 - Unspecified dementia, unspecified severity, without behavioral disturbance, psychotic disturbance, mood disturbance, and anxiety Category: Medical Qualifiers: Dementia behavioral or psychological symptom: with agitation Dementia severity: moderate Dementia type: unspecified type Qualified Code(s): F03.B11 - Unspecified dementia, moderate, with agitation (3) Hx of migraines: Code(s): Z86.69 - Personal history of other diseases of the nervous system and sense organs Category: Medical (4) Headache: Code(s): R51.9 - Headache, unspecified Category: Medical Qualifiers: Headache chronicity pattern: chronic headache Headache type: cluster Intractability: intractable Qualified Code(s): G44.021 - Chronic cluster headache, intractable (5) Cognitive impairment: Comment: probable Alzheimer's Code(s): R41.89 - Other symptoms and signs involving cognitive functions and awareness Category: Medical (6) Cognitive impairment: Comment: probable Alzheimer's Code(s): R41.89 - Other symptoms and signs involving cognitive functions and awareness Category: Medical Plan Cognitive decline, alzheimers vs. LBD, MRI reviewed with daughter and patient today. Anxiety continue sertraline 100mg PO at bedtime, and Hydroxyzine 25mg PO TID MMSE can not complete due to language barrier and limited comprehension of language. Hallucinations Continue taking Seroquel (Quietapine 25mg PO at bedtime). PT unable to complete due to de-conditioning. Labs reviewed with patient today. continue vitamin d, magnesium is low take 400mg PO daily at night. Patient education provided for good blood pressure control, microvascular ischemic changes d/t seen on MRI in October 2024. Headaches continue take one tablet of Zolmitriptan as needed, during the onset of headaches, you may take one more tablet within 2 hours of onset of headache to avoid headache developing into migraine. Paitent Education provided re: sleep disturbances and improving quality of sleep. F/U in 6months, will consider HST if patient is amendable. Patient Instructions: Sleep Hygiene provided: set a scheduled bedtime and wake time to help regulate the circadian rhythm and balance the release of pituitary hormones. Sleep in a dark room, temperatures below 68 degrees, and no devices n bed. Limit caffeinated products 6 hours prior to bed, and limit fluids 2-4 hours prior to bed. Gentle night yoga, diffusing essential oils, and playing soft music can be relaxing. Headache prevention patient education, for microvascular ischemic changes continue to practice good blood pressure control. May take Zolmitriptan daily not to exceed 2 doses within a 24 hour period. Cognitive decline continue to engage in social activities with family and physical therapy at home as tolerable, continue doing puzzles if able to and swimming if tolerable. Continue Quietapine for hallucinations. Coding Level of Care Code Est Pt Level 4 (90962) Complex EM visit Add On G2211 Diagnoses Hallucinations R44.3 Moderate dementia with agitation, unspecified dementia type F03.B11 Dementia behavioral or psychological symptom: with agitation Dementia severity: moderate Dementia type: unspecified type Hx of migraines Z86.69 Intractable chronic cluster headache G44.021 Headache chronicity pattern: chronic headache Headache type: cluster Intractability: intractable Cognitive impairment R41.89 Time Spent (min) 35
--- OUTSIDE RECORDS SUMMARY | 2024-11-18 17:35 | XMS_ITS | Clinical Summary ---
Author Organization [facility] Address [address] [place] [address] Care Team Providers Care Polls Or Surveys Interviewer Name Role Phone Shilpa Jeffries Primary Care [...] Vaccine ( season) 2024 09/15/2021, 12/14/2020, 11/23/2020 Alcohol/Substance Use Screening 07/29/2024 Depression Screening and Follow-Up 07/29/2024 Health Care Proxy Review 07/29/2024 Social Drivers of Health Annual Screening 07/29/2024 Influenza Vaccine (Season Ended) 2025 04/25/2021, 05/06/2020, 07/20/2019, Additional history exists Pneumococcal Vaccine: 50+ Years Completed 06/17/2017, 01/10/2017 Osteoporosis Screening Completed 11/29/2022 Hepatitis B Vaccines Aged Out No long er eligible based on patient's age to complete this topic Procedures * Due to [place] [employer] law, this organization might not be sharing negative HIV tests. Procedure Name Priority Date/Time Associated Diagnosis Comments DEXA BONE DENSITY AXIAL Routine 11/29/2022 2:46 PM EDT Age-related osteoporosis with current pathological fracture, sequela from Last 3 Months or Most Recently Relevant to Health Maintenance Results * Due to [place] [employer] law, this organization might not be sharing [...] obtain the completed interpretation. ? Workstation ID: [id number] Narrative 11/30/2022 12:47 PM EDT EXAM: ??BONE [...] help protect against falls. Resulting Agency Comment [id number] Procedure Note Jerod Kwan MD - 11/30/2022 EXAM: BONE MINERAL DENSITY INDICATION: Osteoporosis M80.00XS - I10 - Age-related osteoporosis withcurrent pathological fracture, unspecified site, sequela PROCEDURE: The bone mineral density (BMD) of the spine and proximal rightfemur was determined using an external X-ray source(Hologic). SITE: [place] FINDINGS: L1-L4: BMD 0.93gm/cm2 T-Score -1.1 Z-score: [...] possible to obtain thecompleted interpretation. Workstation ID: [id number] Ricky Wynn MD IMG DXA PROCEDURES Final Resu lt from Last 3 Months or Most Recently Relevant to Health Maintenance Insurance [facility] Care Teams Polls Or Surveys Interviewer Relationship Specialty Start Date End Date Shilpa Jeffries PCP - General Internal Medicine 09/20/22
--- OUTSIDE RECORDS SUMMARY | 2024-11-18 17:35 | XMS_ITS | Encounter Summary ---
Author Organization [facility] [place] [address] Care Team Providers Care Forensic Psychologist Name Role Phone Shilpa Jeffries MD Primary Care Prov ider Reason for Visit * Reason Onset Date Comments Forms/questionnaires 11/16/2024 Citizenship /Disability immigration Services Encounter Details Date Type Department Care Team ([facility] Contact Info) Description 11/16/2024 Telephone Adult Medicine [facility] [address] [place] [phone] Maciej Pichardo PA [address] [place] [address] Forms/questionnaires (Citizenship/Disability immigration Services) Social History Tobacco Use Types Packs/Day Years [...] as of this encounter Progress Notes * WOODY Payan - 11/17/2024 5:08 PM EDT I am not able to sign these forms in this state. Thank you. * Kranthi Deras MA - 11/17/2024 2:48 PM EDT Please advise patient's daughter Michelle states she spoke to you yesterday about form. She explained how the immigration services have been really tough denying approval. There is a letter attached from [employer] with letter specifics. Read first page of blank form I am unsure if a PA can sign. * Shilpa Jeffries MD - 11/17/2024 2:30 PM EDT I am not willing to really do the immigration forms this will be the fourth time and I will not do it again * Kranthi Deras MA - 11/17/2024 1:38 PM EDT Please review both the form the psychiatrist signed and the last form you completed in 2022. * Dorina Obrien - 11/16/2024 2:30 PM EDT If patient presents with the one of the forms directly below the direct patient with their forms toMedical Records to be completed by [facility]. All [facility] disability forms ONLY All Program Manager Environmental Planning requests for Worker's Compensation Motor vehicle accident [facility] Physical forms for long-term housing Life insurance FORMS TO BE COMPLETED IN THE PRACTICE: Type of form: [employer] and Immigration Service Release of information form ( all sections) has been completed and signed. Yes If this form is for the Registry of Motor Vechicles for a handicap placard or plate is the patient go to be: Is the patient still driving? For what medical problem does the patient need this form completed? unknown Is patients name on the form? Yes Is the patients portion (demographics) of the form completed? Yes Did the patient sign the form? Yes Which provider is form to be completed by? Abdirahman or Dr. Veloz Patient requesting the form be: Will picker / packer-call when completed: (home) If form is not to be picked up by patient has patient been informed that RELEASE OF INFO form must be signed by them for alternate person to picker / packer form? Yes Patient has been informed that completion will be in 7-10 business days: Yes documented in this encounter Plan of Treatment Upcoming Encounters Date Type Department Care Team (Late st Contact Info) Description 11/30/2024 2:30 PM EDT Office Visit Adult Medicine - [place] [address] [place] [address] Maciej Pichardo PA [address], [place] documented as of this encounter Visit Diagnoses Not on filedocumented in this encounter Care Teams Forensic Psychologist Relationship Specialty Start Date End Date Shilpa Jeffries MD [address] [place], [place] PCP - General Internal Medicine 12/06/16 documented as of this encounter
--- OUTSIDE RECORDS SUMMARY | 2024-11-18 17:35 | XMS_ITS | Referral Summary ---
Author Organization [facility] Address [address] [place] [address] Care Team Providers Care Bed Spring Maker Name Role Phone Shilpa Jeffries Primary Care [...] Not on file Procedures * Due to [place] [employer] law, this organization might not be sharing negative HIV tests. Procedure Name Priority Date/Time Associated Diagnosis Comments DEXA BONE DENSITY AXIAL Routine 11/29/2022 2:46 PM EDT Age-related osteoporosis with current pathological fracture, sequela from Last 3 Months or Most Recently Relevant to Health Maintenance Results * Due to [place] [employer] law, this organization might not be sharing [...] obtain the completed interpretation. ? Workstation ID: [id number] Narrative 11/30/2022 12:47 PM EDT EXAM: ??BONE MINERAL DENSITY INDICATION: Osteoporosis M80.00XS - I10 - Age-related osteoporosis with current pathological fracture, unspecified site, sequela PROCEDURE: ??The bone mineral density (BMD) of the spine and proximal right femur was determined using an external X-ray source([facility]). SITE: [facility] FINDINGS: L1-L4: ??BMD 0.93gm/cm2 ?? [...] help protect against falls. Resulting Agency Comment [id number] Procedure Note Jerod Kwan MD - 11/30/2022 EXAM: BONE MINERAL DENSITY INDICATION: Osteoporosis M80.00XS - I10 - Age-related osteoporosis withcurrent pathological fracture, unspecified site, sequela PROCEDURE: The bone mineral density (BMD) of the spine and proximal rightfemur was determined using an external X-ray source(Hologic). SITE: [place] FINDINGS: L1-L4: BMD 0.93gm/cm2 T-Score -1.1 Z-score: [...] possible to obtain thecompleted interpretation. Workstation ID: [id number] Ricky Wynn MD IMG DXA PROCEDURES Final Resu lt from Last 3 Months or Most Recently Relevant to Health Maintenance Insurance [facility] Care Teams Bed Spring Maker Relationship Specialty Start Date End Date Shilpa Jeffries PCP - General Internal Medicine 09/20/22
--- OUTSIDE RECORDS SUMMARY | 2024-11-18 17:35 | XMS_ITS | Encounter Summary ---
Author Organization [facility] Address [address] [place] [address] Care Team Providers Care Resident Manager Name Role Phone Shilpa Jeffries MD Primary Care Prov ider Reason for Visit * Reason Comments Rash Encounter Details Date Type Department Care Team ([facility] Contact Info) Description 11/16/2024 9:00 AM EDT Office Visit Adult Medicine [facility] [address] [place] [address] Maciej Pichardo PA [address] [place] [address] Type 2 diabetes mellitus with diabetic cataract ([facility] V24, [facility] V28) (Primary Dx); Chronic pain syndrome; Spinal cord stimulator status; Rosacea; 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 ([facility] V24, [facility] V28); Non-[place]er speaking patient Social History Tobacco Use Types [...] Sign Reading Time Taken Comments Blood Pressure 145/85 11/16/2024 9:08 AM EDT Pulse 66 11/16/2024 9:08 AM EDT Temperature 36.2 ??C (97.1 ??F) 11/16/2024 9:08 AM ED T Respiratory Rate - - Oxygen Saturation - - Inhaled Oxygen Concentration - - Weight 92.5 kg (204 lb) 11/16/2024 9:08 AM EDT Height 165.1 cm (5' 5 ) 11/16/2024 9:08 AM EDT Body Mass Index 33.95 11/16/2024 9:08 AM EDT documented in this encounter Ordered Prescriptions Prescription Sig Dispense Quantity Refills Last Filled Start Date End Date metroNIDAZOLE (METROCREAM) 0.75 % cream Apply twice daily to rosacea 45 g 2 11/16/2024 5 carbamide peroxide (DEBROX) 6.5 % otic solution Administer 5-10 drops into each ear 2 (two) times a day for 4 days. 8 mL 11/16/2024 5 HYDROcodone-acetam inophen (NORCO) 5-325 mg per tablet Take 2 tablets by mouth every 6 (six) hours if needed for severe pain. Max Daily Amount: 8 tablets 112 tablet 11/16/2024 multivitamin (Daily-Nohemy, with folic acid,) tabletIndications: Type 2 diabetes mellitus with diabetic cataract (CMS/HCC V24, CMS/HCC V28) Take 1 tablet by mouth 1 (one) time each day. 90 tablet 1 11/16/2024 ergocalciferol (VITAMIN D-2) 1,250 mcg (50,000 unit) capsule Take 1 capsule (50,000 Units total) by mouth 1 (one) time per week. 12 each 11/16/2024 5 linaCLOtide (Linzess) 290 mcg capsule Take 1 capsule (290 mcg total) by mouth 1 (one) time each day. 90 each 1 11/16/2024 5 losartan (COZAAR) 25 mg tablet Take 1 tablet (25 mg total) by mouth 1 (one) time each day. 90 tablet 1 11/16/2024 famotidine (PEPCID) 20 mg tablet Take 1 tablet (20 mg total) by mouth 2 (two) times a day. 180 tablet 1 11/16/2024 ZOLMitriptan (ZOMIG) 5 mg tablet Take 1 tablet (5 mg total) by mouth 1 (one) time if needed for migraine. May repeat once after 2 hours. 18 tablet 3 11/16/2024 6 documented in this encounter Progress Notes * WOODY Payan - 11/16/2024 9:00 AM EDT CHIEF COMPLAINT: Rash IDENTIFIER: Yg Finch is a 74 y.o. old female. HPI: Complex patient with comorbidities including diet-controlled diabetes, dementia, chronic pain syndrome, [id number] here with her daughter from which all the history is obtained. Main issue today is rash across the face in a malar distribution with small pustular lesions that are somewhat itchy and burning in sensation. No new foods, medications, sun exposure. No pain, neurological symptoms. Patient on controlled substance contract due to her chronic pains using hydrocodone-acetaminophen 5-325 mg 4 times daily as needed. May need refill today. She tolerates it with no excess sedation, constipation. Patient also with low vitamin D and needs refill of high-dose vitamin D. She does follow with kidney specialist. They are going to reapply for citizenship but need exceptions due to non-[place]er speaking and her dementia. They have been denied but they have a new ice maker. Patient states she was cleaning mother's ears and noticed some red on the Q-tip and would like me to investigate. Not complaining of any pain or hearing loss outside of her normal. ROS: Unable to obtain due to [id number] status and dementia PAST MEDICAL HISTORY: Patient Active Problem List Diagnosis Date Noted Non-[place] Islander speaking patient 09/02/2024 Diabetic mononeuropathy associated with type 2 diabetes mellitus ([facility] V24, [facility] V28) 08/14/2023 Chronic pain syndrome 08/14/2023 Physical deconditioning 08/14/2023 Hyperlipidemia 08/14/2023 Late onset Alzheimer's dementia with mood disturbance ([facility] V24, [facility] V28) 01/02/2023 Rosacea 05/16/2022 Stage 3a chronic kidney disease ([facility] V24, [facility] V28) 10/04/2021 Tendonitis of both rotator cuffs 02/06/2021 COVID-19 virus detected 11/02/2019 History of total knee replacement, right 08/20/2018 Spondylosis of lumbosacral region without myelopathy or radiculopathy 01/03/2018 Vitamin B12 deficiency 11/11/2017 Osteoarthritis of knees, bilateral 04/25/2017 Amaurosis fugax, both eyes 02/05/2017 Spinal cord stimulator status 02/05/2017 Pacemaker 01/15/2017 Type 2 diabetes mellitus with cataract ([facility] V24, [facility] V28) 12/13/2016 Essential hypertension 12/13/2016 Constipation 12/13/2016 Iron [...] Outpatient Medications Marked as Taking for the 11/16/24 encounter (Office Visit) with WOODY Payan Medication Sig Dispense Refill acetaminophen (TYLENOL) 325 mg tablet Take 2 Tabs by mouth every 6 hours as needed for Pain for up to 10 days. amitriptyline (ELAVIL) 25 mg tablet TAKE 1 TABLET BY MOUTH EVERYDAY AT BEDTIME blood sugar diagnostic (FreeStyle Lite Strips) test strip USE TO TEST TWICE A DAY blood-glucose meter kit Test blood sugar bid blood-glucose meter [facility] Test Blood Sugar Twice Daily brimonidine (ALPHAGAN) [...] % drops 1 Drop 2 times daily. denosumab (PROLIA) 60 mg/mL syringe syringe Inject 60 mg into the skin Once. diclofenac (VOLTAREN) 1 % topical gel APPLY 1 APPLICATORFUL TOPICALLY 2 TIMES DAILY. ergocalciferol (VITAMIN D-2) 1,250 mcg (50,000 unit) capsule Take 1 capsule (50,000 Units total) bymouth 1 (one) time per week. 12 each 0 famotidine (PEPCID) 20 mg tablet Take 1 tablet (20 mg total) by mouth 2 (two) times a day. 180 tablet 1 ferrous sulfate 325 mg (65 mg elemental iron) tablet TAKE 1 TABLET BY MOUTH EVERY DAY FREESTYLE LANCETS MIS Apply 1 Stick topically 2 times daily. gabapentin (NEURONTIN) 300 mg capsule TAKE 1 CAPSULE BY MOUTH THREE TIMES A DAY HYDROcodone-acetaminophen (NORCO) 5-325 mg per tablet Take 2 tablets by mouth every 6 (six) hours if needed for severe pain. Max Daily Amount: 8 tablets 112 tablet 0 hydrOXYzine HCL (ATARAX) 25 mg tablet TAKE 1 TABLET BY MOUTH EVERY 6 HOURS NEEDED FOR ITCHING. isopropyl alcohoL (Alcoh-Wipe) 70 % towelette Apply 1 Each topically 2 times daily. ketoconazole (NIZORAL) 2 % cream 2 times daily. linaCLOtide (Linzess) 290 mcg capsule Take 1 capsule (290 mcg total) by mouth 1 (one) time each day. 90 each 1 losartan (COZAAR) 25 mg tablet Take 1 tablet (25 mg total) by mouth 1 (one) time each day. 90 tablet 1 memantine (NAMENDA XR) 7 mg extended release capsule Take 1 Capsule by mouth daily. multivitamin (Daily-Nohemy, with folic acid,) tablet Take 1 tablet by mouth 1 (one) time each day. 90tablet 1 multivitamin tablet TAKE 1 TABLET BY MOUTH [...] once daily until clinicalresolution, typically 1 week ZOLMitriptan (ZOMIG) 5 mg tablet Take 1 tablet (5 mg total) by mouth 1 (one) time if needed for migraine. May repeat once after 2 hours. 18 tablet 3 [DISCONTINUED] Daily-Nohemy, with folic acid, 400 mcg tablet TAKE 1 TABLET BY MOUTH EVERY DAY 90 tablet 1 [DISCONTINUED] ergocalciferol (VITAMIN D-2) 1,250 mcg (50,000 unit) capsule Take 1 Capsule by mouthonce a week. [DISCONTINUED] famotidine (PEPCID) 20 mg tablet Take 1 tablet (20 mg total) by mouth 2 (two) times a day. 180 tablet 1 [DISCONTINUED] linaCLOtide (Linzess) 290 mcg capsule Take 1 Capsule by mouth daily. [DISCONTINUED] losartan (COZAAR) 25 mg tablet TAKE 1 TABLET BY MOUTH EVERY DAY 90 tablet 1 [DISCONTINUED] ZOLMitriptan (ZOMIG) 5 mg tablet Take 1 tablet (5 mg total) by mouth 1 (one) time ifneeded for migraine. May repeat once after 2 hours. 18 tablet 3 Current Facility-Administered Medications for the 11/16/24 encounter (Office Visit) with WOODY Payan Medication Dose Route Frequency Provider Last Rate Last Admin cyanocobalamin (VITAMIN B-12) injection 1,000 mcg 1,000 mcg intramuscular q30 days Shilpa Jeffries MD cyanocobalamin (VITAMIN B-12) injection 1,000 mcg 1,000 mcg intramuscular q30 days Shilpa Jeffries MD 1,000 mcg at 09/02/24 1200 ALLERGIES: Morphine, Oxycodone hcl, Oxycodone-acetaminophen, and Tramadol PHYSICAL EXAM: Blood pressure (!) 145/85, pulse 66, temperature 36.2 ??C (97.1 ??F), temperature source Temporal, height 1.651 m (65 ), weight 92.5 kg (204 lb). Body mass index is 33.95 kg/m??. Plan is deferred until next visit APPEARANCE: Alert and in no acute distress EYES: PERRLA, conjunctiva and sclera normal EARS: Right ear with mild amount of cerumen not occluding the view of the tympanic membrane. Left ear within normal limits MOUTH/THROAT: no erythema, lesions, or exudates NECK: Neck supple, no adenopathy, thyroid symmetric and of normal size HEART: RRR with normal S1 and S2, no murmurs, no gallops, no JVD appreciated LUNG: clear to auscultation bilaterally EXTREMITIES: Extremities warm and well perfused without clubbing, cyanosis, or edema NEURO: Awake, alert LABS: Appointment on 09/02/2024 Component Date Value Ref Range Status Hemoglobin A1C 09/02/2024 5.5 <6.5 % Final Mean Bld Glu Estim. 09/02/2024 111 mg/dL Final Sodium 09/02/2024 141 133 - 145 mmol/L Final Potassium 09/02/2024 3.9 3.5 - 5.5 mmol/L Final Chloride 09/02/2024 111 (H) 96 - 110 mmol/L Final CO2 09/02/2024 26 21 - 32 mmol/L Final Anion Gap 09/02/2024 4 3 - 11 Final Glucose 09/02/2024 86 70 - 100 mg/dL Final BUN 09/02/2024 21 5 - 25 mg/dL Final Creatinine 09/02/2024 0.96 0.50 - 1.10 mg/dL Final eGFR 09/02/2024 61 >=60 mL/min/1.73m2 Final Calculation based on the Chronic Kidney Disease Epidemiology Collaboration (CKD- EPI) equation refitwithout adjustment for race. BUN/Creatinine Ratio 09/02/2024 21.9 Final Calcium 09/02/2024 8.6 8.5 - 10.5 mg/dL Final AST (SGOT) 09/02/2024 15 10 - 42 unit/L Final ALT (SGPT) 09/02/2024 27 10 - 60 unit/L Final Alkaline Phosphatase 09/02/2024 60 42 - 121 unit/L Final Total Protein 09/02/2024 7.1 6.0 - 8.0 g/dL Final Albumin 09/02/2024 3.3 3.2 - 5.0 g/dL Final Total Bilirubin 09/02/2024 0.4 0.0 - 1.4 mg/dL Final TSH 09/02/2024 0.76 0.40 - 4.00 mcIU/mL Final Vitamin B-12 09/02/2024 412 250 - 900 pcg/mL Final Vitamin D, 1, 25-Dihydroxy 09/02/2024 69 20 - 79 pg/mL Final Vitamin D 1, 25 dihydroxy levels should be primarily used to assess Vitamin D status in patients with renal disease and hypercalcemia. Vitamin D 1,25-dihydroxy levels are generally less than 5 pg/mL in end stage renal disease patients. The preferred initial test for assessing Vitamin D status in the general population is Vitamin D 25-hydroxy (VITD). Test performed at [facility], [address] , [place] [address] Cynthia Campos MD, PhD - Corporate Sales Manager Iron 09/02/2024 83 40 - 150 mcg/dL Final TIBC 09/02/2024 363 250 - 450 mcg/dL Final Iron Saturation 09/02/2024 23 15 - 50 % Final Magnesium 09/02/2024 1.9 1.9 - 2.6 mg/dL Final Culture, Urine 09/02/2024 <10,000 CFU/mL gram positive cocci, insignificant count, no further workup Final Vit D, 25-Hydroxy 09/02/2024 16.4 (L) 30.0 - 80.0 ng/mL Final PTH 09/02/2024 167.4 (H) 18.5 - 88.0 pcg/mL Final Creatinine, Urine 09/02/2024 30.0 mg/dL Final Microalb, Ur 09/02/2024 6.2 0.0 - 29.0 mg/L Final Microalb/Creat Ratio 09/02/2024 21 <30 mg/g creat Final Phosphorus 09/02/2024 2.5 2.5 - 4.5 mg/dL Final Extra Tube 09/02/2024 Hold for add-ons. Final Auto resulted. Abstract on 08/12/2024 Component Date Value Ref Range Status Hepatitis C Screening 04/27/2024 Abstracted Final Annual BMP Blood Test 03/27/2024 Abstracted Final Diabetes: Annual Foot Exam 04/27/2024 Abstracted Final HM Urine Albumin Creatinine Ratio 08/06/2023 Abstracted Final LDL/HDL Ratio 08/06/2023 4 0 - 4 Final Triglycerides 08/06/2023 139 0 - 150 mg/dL Final Cholesterol 08/06/2023 349 (A) 0 - 200 mg/dL Final HDL 08/06/2023 80 >=40 mg/dL Final LDL Cholesterol 08/06/2023 242 (A) 0 - 100 mg/dL Final Hemoglobin A1C 03/27/2024 5.3 <=6.5 % Final IMPRESSION: 1. Type 2 diabetes mellitus with diabetic cataract ([facility] V24, [facility] V28) 2. Chronic pain syndrome 3. Spinal cord stimulator status 4. Rosacea 5. 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 Non-[place]er speaking patient PLAN: Diabetes: Well-controlled. Last A1c below 6. Continue monitoring dietary intake Chronic pain syndrome: Hydrocodone with acetaminophen 5-325 mg renewed and reviewed. PDMP reviewed and appropriate. Risks of narcotic use were discussed with the patient and may include, but not limited to: Constipation, nausea, sleepiness or drowsiness, problems with coordination or balance that make it and safe to operate equipment of motor vehicles, confusion or other change in mental state, physicaldependence/addiction, psychological dependence/addiction, decreased appetite, urinary retention, slow and shallow breathing, over dose can lead to respiratory arrest and , sexual difficulties, loss of libido, erectile dysfunction in men. Other less common risks and side effects are possible. Patient with mild rosacea. Prescription for metronidazole provided Very small amount of earwax. Daughter requests Debrox kit They are dropping off paperwork for her reapplication to citizenship Discussed signs and symptoms warranting reevaluation. Risks, benefits, and side-effects of the medication were discussed and the patient expressed verbalunderstanding and consents to the plan. Followup in 3 months with PCP This note was created using dictation software and may contain syntax and grammar errors. No orders of the defined types were placed in this encounter. ADDITIONAL ORDERS: None WOODY Payan on 11/16/2024 at 9:43 AM EDT documented in this encounter Plan of Treatment Upcoming Encounters Date Type Department Care Team (Late st Contact Info) Description 11/30/2024 2:30 PM EDT Office Visit Adult Medicine - [facility] [address] [place] [address] Maciej Pichardo PA [address] [place] [address] documented as of this encounter Visit Diagnoses Diagnosis Type 2 diabetes mellitus with diabetic cataract ([facility] V24, [facility] V28)- Primary Type II or unspecified type diabetes mellitus with ophthalmic manifestations, not stated as uncontrolled Chronic pain syndrome Spinal cord stimulator status Rosacea 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 ([facility] V24, [facility] V28) Non-[place]er speaking patient documented in this encounter Discontinued Medications Medication Sig Discontinue Reason Start Date End Da te Daily-Nohemy, with folic acid, 400 mcg tabletIndications:Type 2 diabetes mellitus with diabetic cataract ([facility] V24, [facility] V28) TAKE 1 TABLET BY MOUTH EVERY DAY Reorder 07/01/2024 11/16/2024 ergocalciferol (VITAMIN D-2) 1,250 mcg (50,000 unit) capsule Take 1 Capsule by mouth once a week. Reorder 04/27/2024 11/16/2024 linaCLOtide (Linzess) 290 mcg capsule Take 1 Capsule by mouth daily. Reorder 11/21/2023 11/16/2024 ZOLMitriptan (ZOMIG) 5 mg tablet Take 1 tablet (5 mg total) by mouth 1 (one) time if needed for migraine. May repeat once after 2 hours. Reorder 09/02/2024 11/16/2024 losartan (COZAAR) 25 mg tablet TAKE 1 TABLET BY MOUTH EVERY DAY Reorder 09/18/2024 11/16/2024 famotidine (PEPCID) 20 mg tablet Take 1 tablet (20 mg total) by mouth 2 (two) times a day. Reorder 09/18/2024 11/16/2024 HYDROcodone-acetaminophe n (NORCO) 5-325 mg per tablet Take by mouth. Reorder 11/16/2024 documented as of this encounter Historical Medications * This list may reflect changes made after this encounter. HYDROcodone-aceta minophen (NORCO) 5-325 mg per tablet Take by mouth. 11/16/2024 added in this encounter Care Teams Resident Manager Relationship Specialty Start Date End Date Shilpa Jeffries MD [address] [place] [id number] PCP - General Internal Medicine 12/06/16 documented as of this encounter
--- OUTSIDE RECORDS SUMMARY | 2024-11-18 17:35 | XMS_ITS | Clinical Summary ---
Author Organization [facility] Address [address] [place] [address] Care Team Providers Care Creative Services Designer Name Role Phone GuzmanAsh dozier [place] Primary Care Provider [phone] Source Comments PLEASE NOTE, if this patient [...] on file Insurance [place] MEDICAID Care Teams Creative Services Designer Relationship Specialty Start Date End Date [phone] [place] [address] PCP - General Nutrition 07/05/17
--- OUTSIDE RECORDS SUMMARY | 2024-11-18 17:35 | XMS_ITS | Clinical Summary ---
Author Organization [facility] Address [address] [place] [address] Phone Care Team Providers Care Cafe Helper Name Role Phone Shilpa Jeffries MD Primary Care Prov ider Allergies Active Allergy Reactions Criticality Noted Date Comments Morphine Itching 05/09/2017 Oxycodone Hcl 12/04/2022 Oxycodone-Acetaminophen Itching 03/19/2017 Tramadol Itching 03/19/2017 Medications clotrimazole (LOTRIMIN) 1 % cream APPLY A SMALL AMOUNT TO AFFECTED AREA TWICE A DAY 05/14/20 24 Active gabapentin (NEURONTIN) 300 mg capsule TAKE 1 CAPSULE BY MOUTH THREE TIMES A DAY 05/14/20 24 Active diclofenac (VOLTAREN) 1 % topical gel APPLY 1 APPLICATORFUL TOPICALLY 2 TIMES DAILY. 03/24/20 24 Active bumetanide (BUMEX) 1 mg tablet TAKE 1 TABLET BY MOUTH EVERY OTHER DAY FOR 360 DAYS. 06/21/20 24 Active potassium chloride 20 mEq tablet extended release Take 1 Tablet by mouth every other day for 360 days. 03/24/20 24 025 Active multivitamin tablet TAKE 1 TABLET BY MOUTH EVERY DAY 12/12/19 24 Active blood sugar diagnostic (FreeStyle Lite Strips) test strip USE TO TEST TWICE A DAY 11/29/19 24 Active nystatin-triam cinolone (MYCOLOG II) ointment [...] times daily. 08/14/19 23 Active blood-glucose meter mis Test Blood Sugar Twice Daily 05/16/20 22 [...] Test blood sugar bid 02/01/20 17 Active ZOLMitriptan (ZOMIG) 5 mg tablet Take 1 tablet (5 mg total) by mouth 1 (one) time if needed for migraine. May repeat once after 2 hours. 18 tablet 3 11/17/19 25 026 Active famotidine (PEPCID) 20 mg tablet Take 1 tablet (20 mg total) by mouth 2 (two) times a day. 180 tablet 1 11/17/19 25 Active losartan (COZAAR) 25 mg tablet Take 1 tablet (25 mg total) by mouth 1 (one) time each day. 90 tablet 1 11/17/19 25 Active linaCLOtide (Linzess) 290 mcg capsule Take 1 capsule (290 mcg total) by mouth 1 (one) time each day. 90 each 1 11/17/19 25 025 Active ergocalciferol (VITAMIN D-2) 1,250 mcg (50,000 unit) capsule Take 1 capsule (50,000 Units total) by mouth 1 (one) time per week. 12 each 11/17/19 25 025 Active multivitamin (Daily-Nohemy, with folic acid,) tabletIndicati ons:Type 2 diabetes mellitus with diabetic cataract ([facility] V24, [facility] V28) Take 1 tablet by mouth 1 (one) time each day. 90 tablet 1 11/17/19 25 Active HYDROcodone-ac etaminophen (NORCO) 5-325 mg per tablet Take 2 tablets by mouth every 6 (six) hours if needed for severe pain. Max Daily Amount: 8 tablets 112 tablet 11/17/19 25 Active carbamide peroxide (DEBROX) 6.5 % otic solution Administer 5-10 drops into each ear 2 (two) times a day for 4 days. 8 mL 11/17/19 25 025 Active metroNIDAZOLE (METROCREAM) 0.75 % cream Apply twice daily to rosacea 45 g 2 11/17/19 25 025 Active Daily-Nohemy, with folic acid, 400 mcg tabletIndicati ons:Type 2 diabetes mellitus with diabetic cataract ([facility] V24, [facility] V28) TAKE 1 TABLET BY MOUTH EVERY DAY 90 tablet 1 07/01/20 24 025 Discontin ued(Reord er) ergocalciferol (VITAMIN D-2) 1,250 mcg (50,000 unit) capsule Take 1 Capsule by mouth once a week. 04/27/20 24 025 Discontin ued(Reord er) linaCLOtide (Linzess) 290 mcg capsule Take 1 Capsule by mouth daily. 11/21/19 24 025 Discontin ued(Reord er) ZOLMitriptan (ZOMIG) 5 mg tablet Take 1 tablet (5 mg total) by mouth 1 (one) time if needed for migraine. May repeat once after 2 hours. 18 tablet 3 09/02/19 25 025 Discontin ued(Reord er) losartan (COZAAR) 25 mg tablet TAKE 1 TABLET BY MOUTH EVERY DAY 90 tablet 1 09/18/19 25 025 Discontin ued(Reord er) famotidine (PEPCID) 20 mg tablet Take 1 tablet (20 mg total) by mouth 2 (two) times a day. 180 tablet 1 09/18/19 25 025 Discontin ued(Reord er) HYDROcodone-ac etaminophen (NORCO) 5-325 mg per tablet Take by mouth. 025 Discontin ued(Reord er) Hospital, Clinic, or Other Facility Administered Medication Ordered Dose Route Frequency Start Date End Date Status cyanocobalamin (VITAMIN B-12) injection 1,000 mcgIndications:Vitamin B12 deficiency 1000 mcg IM Every 30 days 08/17/2024 Active cyanocobalamin (VITAMIN B-12) injection 1,000 mcgIndications:Vitamin B12 deficiency 1000 mcg IM Every 30 days 09/02/2024 03/01/2025 Active Active Problems Problem Noted Date Diagnosed Date Non-Bangladeshi speaking patient 09/02/2024 Diabetic mononeuropathy asso ciated with type 2 diabetes mellitus ([facility] V24, [facility] V28) 08/14/2023 Chronic pain syndrome 08/14/2023 Physical deconditioning 08/14/2023 Hyperlipidemia 08/14/2023 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 ([facility] V24, [facility] V28) 01/02/2023 Rosacea 05/16/2022 Stage 3a chronic kidney disease ([facility] V24, [facility] V28) 10/04/2021 Tendonitis of both rotator cuffs 02/06/2021 COVID-19 virus detected 11/02/2019 Overview (08/12/2024): hosp at [facility] 10/29/19 Positive COVID 03/28/2024 History of total [...] symptomatic Gregg cardia Type 2 diabetes mellitus wit h cataract ([facility] V24, [facility] V28) 12/13/2016 Essential hypertension 12/13/2016 Constipation 12/13/2016 Iron deficiency anemia 12/13/2016 Elevated sed rate 12/13/2016 Overview (08/12/2024): Treated with prednisone for question of giant cell arteritis. Biopsy was negative. The CRP never went up much so I don't think this was likely to be PMR or giant cell arteritis. Prednisone tapered off November 2017. Encounters Date Type Department Care Team Description 11/16/2024 9:00 AM EDT Office Visit Adult [address] [phone] Maciej Pichardo PA Type 2 diabetes mellitus with diabetic cataract ([facility] V24, [facility] V28) (Primary Dx); Chronic pain syndrome; Spinal cord stimulator status; Rosacea; 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 ([facility] V24, [facility] V28); Non-Bangladeshi speaking patient 11/16/2024 Telephone Adult [address] [phone] Maciej Pichardo PA Forms/questionnaires (Citizenship/Disabili ty immigration Services) 11/12/2024 Telephone Adult [address] [phone] Shilpa Velasquez MD Rash 09/02/2024 10:00 AM EST Office Visit Adult [address] [phone] Shilpa Velasquez MD Type 2 diabetes mellitus with cataract ([facility] V24, [facility] V28) (Primary Dx); 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 ([facility] V24, [facility] V28); Vitamin B12 deficiency; Chronic migraine with aura without status migrainosus, not intractable; Urinary tract infection without hematuria, site unspecified; Hypothyroidism, unspecified type; Vitamin D deficiency; Iron deficiency anemia due to chronic blood loss; Weakness; Non-Bangladeshi speaking patient from Last 3 Months Immunizations Name Administration Dates Next Due Influenza Quadravalent, MDCK , 0.5ml, with preservative (Flucelvax) 6mo and older 06/17/2017 Influenza trivalent, 0.5mL ( Fluad) 65yo and older 04/27/2024,04/25/2021,05/06/2020,07/20,05/09/2018 Pfizer SARS-CoV-2 COVID-19, mRNA, LNP-S, preservative free 12/14/2020,11/23/2020 [...] complication, without long-term current use of insulin ([facility] V24, [facility] V28) 12/13/2016 DX:Type 2 diabetes mellitus with complication, without long-term current use of insulin ([facility]) Essential hypertension 12/13/2016 DX:Essent ial hypertension Constipation 12/13/2016 DX:Constipation Chronic pain of both knees 12/13/2016 DX:Ch ronic pain of both knees Chronic right shoulder pain 12/13/2016 DX:C hronic right shoulder pain Iron deficiency anemia 12/13/2016 DX:Iron d eficiency anemia Elevated sed rate 12/13/2016 DX:Elevated se d rate Type 2 diabetes mellitus wit h cataract ([facility] V24, [facility] V28) 12/13/2016 DX:Type 2 diabetes mellitus with cataract ([facility]) Amaurosis fugax, both eyes 02/05/2017 DX:Am aurosis fugax, both eyes Osteoarthritis of knees, bilateral 04/25/2017 DX:Osteoarthritis of knees, bilateral Glaucoma DX:Glaucoma COVID-19 virus detected 11/02/2019 DX:COVID -19 virus detected; COMMENT: hosp at [facility] 10/29/19 Family History Medical History Relation Name [...] Mass Index 33.95 11/16/2024 9:08 AM EDT Plan of Treatment Upcoming Encounters Date Type Department Care Team (Late st Contact Info) Description 11/30/2024 2:30 PM EDT Office Visit Adult Medicine [facility] [address] [place] [phone] Maciej Pichardo PA [address] [place] [address] Health Maintenance Due Date Last Done Comments Diabetes: Annual Retina Eye Exam 01/26/1958 Zoster Vaccines (1 of 2) 01/26/1998 Depression Screening 07/07/2022 Falls Risk Assessment 07/07/2022 Social Influencers of Health Screening 07/07/2022 RSV Immunization Adult Patients (1 - 1-dose 75+ series) 01/26/2023 COVID-19 [...] age to complete this topic Meningococcal B Vaccine Aged Out No l onger eligible based on patient's age to complete [...] type 2 diabetes mellitus with diabetic nephropathy ([facility] V24, [facility] V28) Benign hypertensive kidney disease with chronic kidney disease, stage 1-4 or unspecified chronic kidney disease Type 2 diabetes mellitus with cataract ([facility] V24, [facility] V28) Vitamin B12 deficiency Vitamin D deficiency Iron deficiency anemia due to chronic blood loss Weakness Urinary tract infection without hematuria, site unspecified PHOSPHORUS Routine 09/02/2024 11:07 AM EST Chronic kidney disease, stage II (mild) Controlled type 2 diabetes mellitus with diabetic nephropathy ([facility] V24, [facility] V28) Benign hypertensive kidney disease with chronic kidney disease, stage 1-4 or unspecified chronic kidney disease MICROALBUMIN CREATININE URINE RATIO Routine 09/02/2024 11:07 AM EST Chronic kidney disease, stage II (mild) Controlled type 2 diabetes mellitus with diabetic nephropathy ([facility] V24, [facility] V28) Benign hypertensive kidney disease with chronic kidney disease, stage 1-4 or unspecified chronic kidney disease PARATHYROID HORMONE INTACT Routine 09/02/2024 11:07 AM EST Chronic kidney disease, stage II (mild) Controlled type 2 diabetes mellitus with diabetic nephropathy ([facility] V24, [facility] V28) Benign hypertensive kidney disease with chronic kidney disease, stage 1-4 or unspecified chronic kidney disease VITAMIN D 25 HYDROXY Routine 09/02/2024 11:07 AM EST Chronic kidney disease, stage II (mild) Controlled type 2 diabetes mellitus with diabetic nephropathy ([facility] V24, [facility] V28) Benign hypertensive kidney disease with chronic kidney [...] EST Type 2 diabetes mellitus with cataract ([facility] V24, [facility] V28) COMPREHENSIVE METABOLIC PANEL Routine 09/02/2024 11:07 AM EST Type 2 diabetes mellitus with cataract ([facility] V24, [facility] V28) HEMOGLOBIN A1C Routine 09/02/2024 11:07 AM EST Type 2 diabetes mellitus with cataract ([facility] V24, [facility] V28) CULTURE URINE Routine 09/02/2024 11:07 AM EST Urinary tract infection without hematuria, site unspecified HEPATITIS C SCREENING Routine 04/27/2024 DIABETES FOOT EXAM Routine 04/27/2024 LIPID PANEL Routine 08/06/2023 from Last 3 Months or Most Recently Relevant to Health Maintenance Results * SST tube (09/02/2024 11:21 AM EST) Pathologist [facility] Extra Tube Hold for add-ons. 09/02/2024 5:01 PM EST [facility] Comment:Auto resulted. Blood Venous blood specimen / Unknown Venipuncture / Unknown 09/02/2024 11:21 AM EST 09/02/2024 11:21 AM EST us Shilpa Jeffries MD LAB BLOOD ORDERABL ES Final Result [facility] [address] [place] [address], * Thyroid stimulating hormone with reflex to free t4 and free t3 (09/02/2024 11:07 AM EST) TSH 0.76 0.40 - 4.00 mcIU/mL LAB CHEMISTRY METHOD 09/02/2024 7:18 PM EST [facility] Blood Venous blood specimen / Unknown Venipuncture / Unknown 09/02/2024 11:07 AM EST 09/02/2024 11:07 AM EST us Shilpa Jeffries MD LAB BLOOD ORDERABL ES Final Result [facility] [address] [place] [address], [place] [phone] * Iron and TIBC (09/02/2024 11:07 AM EST) Iron 83 40 - 150 mcg/dL LAB CHEMISTRY METHOD 09/02/2024 3:21 PM EST [facility] TIBC 363 250 - 450 mcg/dL LAB CHEMISTRY METHOD 09/02/2024 3:21 PM EST [facility] Iron Saturation 23 15 - 50 % LAB CHEMISTRY METHOD 09/02/2024 3:21 PM EST [facility] Blood Venous blood specimen / Unknown Venipuncture / Unknown 09/02/2024 11:07 AM EST 09/02/2024 11:07 AM EST Shilpa Jeffries MD LAB BLOOD ORDERABL ES Final Result [facility] [address] [place] [address], [place] [phone] * Microalbumin creatinine urine ratio (09/02/2024 11:07 AM EST) Creatinine, Urine 30.0 mg/dL LAB CHEMISTRY METHOD 09/02/2024 6:17 PM EST [facility] Microalb, Ur 6.2 0.0 - 29.0 mg/L LAB CHEMISTRY METHOD 09/02/2024 6:17 PM EST [facility] Microalb/Creat Ratio 21 <30 mg/g creat LAB CHEMISTRY METHOD 09/02/2024 6:17 PM EST [facility] Urine Urine specimen obtained by clean catch procedure / Unknown Non-blood Collection / Unknown 09/02/2024 11:07 AM EST 09/02/2024 11:07 AM EST us Edgar Moreno MD LAB URINE ORDERABLES Final Resu lt [facility] [address] [place] [address], [place] [phone] * Vitamin D 1,25 dihydroxy (09/02/2024 11:07 AM EST) Vitamin D, 1, 25-Dihydroxy 69 20 - 79 pg/mL 09/07/2024 10:12 PM EST [facility] Comment: Vitamin D 1, 25 dihydroxy levels should be primarily used to assess Vitamin D status in patients with renal disease and hypercalcemia. Vitamin D 1,25-dihydroxy levels are generally less than 5 pg/mL in end stage renal disease patients. The preferred initial test for assessing Vitamin D status in the general population is Vitamin D 25-hydroxy (VITD). Test performed at [facility], [address] [place], [place] ??[address] ? [phone] Cynthia Campos MD, PhD - Neonatal Specialist Blood Venous blood specimen / Unknown Venipuncture / Unknown 09/02/2024 11:07 AM EST 09/02/2024 11:07 AM EST us Shilpa Jeffries MD LAB BLOOD ORDERABL ES Final Result [facility] [address] [place] [address] * (ABNORMAL) Vitamin D 25 hydroxy (09/02/2024 11:07 AM EST) Vit D, 25-Hydroxy 16.4(L) 30.0 - 80.0 ng/mL LAB CHEMISTRY METHOD 09/02/2024 7:17 PM EST [facility] Blood Venous blood specimen / Unknown Venipuncture / Unknown 09/02/2024 11:07 AM EST 09/02/2024 11:07 AM EST Edgar Moreno MD LAB BLOOD ORDERABLES Final Resu lt Performing Organization Address [facility] Co de Phone Number [facility] [address] [place] [address], [place] [phone] * Culture urine (09/02/2024 11:07 AM EST) Pathologist [facility] Culture, Urine <10,000 CFU/mL gram positive cocci, insignificant count, no further workup 09/03/2024 11:28 AM EST [facility] Urine Urine specimen from urethra / Unknown Non-blood Collection / Unknown 09/02/2024 11:07 AM EST 09/02/2024 11:07 AM EST Shilpa Jeffries MD LAB MICROBIOLOGY - GENERAL ORDERABLES Final Result Performing Organization Address [facility] de Phone Number [facility] [address] [place] [address], [place] [phone] * Phosphorus (09/02/2024 11:07 AM EST) [facility] Phosphorus 2.5 2.5 - 4.5 mg/dL LAB CHEMISTRY METHOD 09/02/2024 3:21 PM EST [facility] Blood Venous blood specimen / Unknown Venipuncture / Unknown 09/02/2024 11:07 AM EST 09/02/2024 11:07 AM EST Edgar Moreno MD LAB BLOOD ORDERABLES Final Resu lt Performing Organization Address [facility]/ZIP Co de Phone Number [facility] [address] [place] [address], [place] [phone] * (ABNORMAL) Parathyroid hormone intact (09/02/2024 11:07 AM EST) PTH 167.4(H) 18.5 - 88.0 pcg/mL LAB CHEMISTRY METHOD 09/02/2024 7:20 PM EST [facility] Blood Venous blood specimen / Unknown Venipuncture / Unknown 09/02/2024 11:07 AM EST 09/02/2024 11:07 AM EST Edgar Moreno MD LAB BLOOD ORDERABLES Final Resu lt Performing Organization Address City/[facility]/ZIP Co de Phone Number [facility] [address] [place] [address], [place] [phone] * Magnesium (09/02/2024 11:07 AM EST) Magnesium 1.9 1.9 - 2.6 mg/dL LAB CHEMISTRY METHOD 09/02/2024 3:21 PM EST [facility] Blood Venous blood specimen / Unknown Venipuncture / Unknown 09/02/2024 11:07 AM EST 09/02/2024 11:07 AM EST Shilpa Jeffries MD LAB BLOOD ORDERABL ES Final Result Performing Organization Address [facility] Co de Phone Number [facility] [address] [place] [address], [place] [phone] * Hemoglobin A1c (09/02/2024 11:07 AM EST) Hemoglobin A1C 5.5 <6.5 % LAB CHEMISTRY METHOD 09/02/2024 7:06 PM EST [facility] Mean Bld Glu Estim. 111 mg/dL LAB CHEMISTRY METHOD 09/02/2024 7:06 PM EST [facility] Blood Venous blood specimen / Unknown Venipuncture / Unknown 09/02/2024 11:07 AM EST 09/02/2024 11:07 AM EST Shilpa Jeffries MD LAB BLOOD ORDERABL ES Final Result [facility] [address] [place] [address], [place] [phone] * Vitamin B12 (09/02/2024 11:07 AM EST) [facility] Vitamin B-12 412 250 - 900 pcg/mL LAB CHEMISTRY METHOD 09/02/2024 3:42 PM [facility] Blood Venous blood specimen / Unknown Venipuncture / Unknown 09/02/2024 11:07 AM EST 09/02/2024 11:07 AM EST Shilpa Jeffries MD LAB BLOOD ORDERABL ES Final Result Performing Organization Address [facility]/ZIP Co de Phone Number [facility] [address] [place] [address], [place] [phone] * (ABNORMAL) Comprehensive metabolic panel (09/02/2024 11:07 AM EST) [facility] Sodium 141 133 - 145 mmol/L LAB CHEMISTRY METHOD 09/02/2024 3:21 PM [facility] Potassium 3.9 3.5 - 5.5 mmol/L LAB CHEMISTRY METHOD 09/02/2024 3:21 PM [facility] Chloride 111(H) 96 - 110 mmol/L LAB CHEMISTRY METHOD 09/02/2024 3:21 PM [facility] CO2 26 21 - 32 mmol/L LAB CHEMISTRY METHOD 09/02/2024 3:21 PM [facility] Anion Gap 4 3 - 11 LAB CHEMISTRY METHOD 09/02/2024 3:21 PM [facility] Glucose 86 70 - 100 mg/dL LAB CHEMISTRY METHOD 09/02/2024 3:21 PM [facility] BUN 21 5 - 25 mg/dL LAB CHEMISTRY METHOD 09/02/2024 3:21 PM [facility] Creatinine 0.96 0.50 - 1.10 mg/dL LAB CHEMISTRY METHOD 09/02/2024 3:21 PM [facility] eGFR 61 >=60 mL/min/1. 73m2 LAB CHEMISTRY METHOD 09/02/2024 3:21 PM [facility] Comment:Calculation based on the??Chronic Kidney Disease Epidemiology Collaboration (CKD-EPI) equation refit??without adjustment for race. BUN/Creatinine Ratio 21.9 LAB CHEMISTRY METHOD 09/02/2024 3:21 PM [facility] Calcium 8.6 8.5 - 10.5 mg/dL LAB CHEMISTRY METHOD 09/02/2024 3:21 PM [facility] AST (SGOT) 15 10 - 42 unit/L LAB CHEMISTRY METHOD 09/02/2024 3:21 PM [facility] ALT (SGPT) 27 10 - 60 unit/L LAB CHEMISTRY METHOD 09/02/2024 3:21 PM [facility] Alkaline Phosphatase 60 42 - 121 unit/L LAB CHEMISTRY METHOD 09/02/2024 3:21 PM [facility] Total Protein 7.1 6.0 - 8.0 g/dL LAB CHEMISTRY METHOD 09/02/2024 3:21 PM [facility] Albumin 3.3 3.2 - 5.0 g/dL LAB CHEMISTRY METHOD 09/02/2024 3:21 PM [facility] Total Bilirubin 0.4 0.0 - 1.4 mg/dL LAB CHEMISTRY METHOD 09/02/2024 3:21 PM [facility] Blood Venous blood specimen / Unknown Venipuncture / Unknown 09/02/2024 11:07 AM EST 09/02/2024 11:07 AM EST us Shilpa Jeffries MD LAB BLOOD ORDERABL ES Final Result [facility] [address] [place] [address], * Hepatitis C Screening (04/27/2024) Hepatitis C Screening Abstracted Historical Provider HEALTH MAINTENANCE Final Result * Diabetes Foot Exam (04/27/2024) Diabetes: Annual Foot [...] Maintenance Insurance MEDICAID - [place] Care Teams Cafe Helper Relationship Specialty Start Date End Date Shilpa Jeffries MD [address] [place] [id number] PCP - General Internal Medicine 12/06/16
== END 2024-11-18 15:55 | disposition home or self-care (01) ==
LOC: HO.HSMS 14:47
PROVIDERS: PCP Internal Medicine; Visit Provider Physician Assistant Medical
DX: R44.3 Hallucinations, unspecified (principal); F03.B11 Unspecified dementia, moderate, with agitation; Z86.69 Personal history of other diseases of the nervous system and sense organs; G44.021 Chronic cluster headache, intractable; R41.89 Other symptoms and signs involving cognitive functions and awareness
CPT/HCPCS: 99214

== ENCOUNTER → 2024-11-18 14:46 | Outpatient (BNVA) | payer MEDICAID, SELFPAY | PROVIDERS: PCP Internal Medicine; Visit Provider Physician Assistant Medical | DX: R44.3 Hallucinations, unspecified (principal); R41.89 Other symptoms and signs involving cognitive functions and awareness; F03.B11 Unspecified dementia, moderate, with agitation; G44.021 Chronic cluster headache, intractable; Z86.69 Personal history of other diseases of the nervous system and sense organs | CPT/HCPCS: 99212 ==

== ENCOUNTER 2025-05-06 12:37 | Outpatient (AMB) | payer MEDICAID, SELFPAY ==
[2025-05-06 12:41] VITALS: BP 142/78; PULSE 82; RESP 15; O2SAT 98; BMI 38.3
--- NOTE | 2025-05-06 12:41 | MHC.OFFVIS ---
Vital Signs 05/06/25 12:41 Height 5 ft 2 in Weight 209 lb 7.026 oz BMI 38.3 BP 142/78 H Blood Pressure Location Lt brachial Position Sitting Respiration 15 Pulse 82 Pulse Source Pulse Oximeter Pulse Oximetry (%) 98 Oxygen Delivery Method Room Air Intake Visit Reasons: follow-up Technical Writer Required: Yes Technical Writer Language: Libyan Technical Writer Services: Technical Writer Offered & Declined (Daughter will be interperter.) Accompanied by: Daughter Allergies oxycodone (From Percocet) Allergy (Unknown, Verified 05/06/25 12:46) Itching morphine Allergy (Intermediate, Uncoded 08/12/24 15:30) itching oxycodone Allergy (Intermediate, Uncoded 08/12/24 15:30) Itching tramadol Allergy (Intermediate, Uncoded 08/12/24 15:30) Itching Medication List - Last Reconciled 05/06/25 by Luz Becerril MD ammonium lactate 12% appl topical BID atorvastatin 40 mg PO DAILY blood sugar diagnostic (FreeStyle Lite Strips) As directed bumetanide 1 mg PO Q OTHER DAY cholecalciferol (vitamin D3) 50 mcg PO QAM clotrimazole 1% appl topical BID cyanocobalamin (vitamin B-12) 100 mcg IM Q4W diclofenac sodium 1% (Arthritis Pain (diclofenac)) 2 grams topical QID ergocalciferol (vitamin D2) 1,250 mcg PO QWEEK famotidine (Pepcid) 20 mg PO BID ferrous sulfate 325 mg PO DAILY gabapentin 300 mg PO TID hydrocodone-acetaminophen 5-325 mg 1 tab PO Q6H PRN hydroxyzine HCl 25 mg PO TID PRN indapamide 2.5 mg PO BEDTIME lactulose 20 grams PO TID lancets (FreeStyle Lancets) As directed lidocaine 5% 1 patch topical DAILY linaclotide (Linzess) 290 mcg PO DAILY lorazepam 0.5 mg PO ONCE PRN losartan 25 mg PO DAILY loteprednol etabonate 0.5% (Lotemax) 1 appl ophthalmic (eye) QPM magnesium oxide 400 mg PO DAILY 90 days melatonin 3 mg PO BEDTIME 90 days memantine 10 mg PO BID 90 days multivitamin with folic acid 400 mcg (Daily-Nohemy (with folic acid)) 1 tab PO DAILY ondansetron HCl 4 mg PO Q8H PRN pioglitazone (Actos) 30 mg PO BID potassium chloride ER 10 mEq PO BID quetiapine 1.5tabs qhs orally bedtime; 90 days repaglinide 2 mg PO BID riboflavin (vitamin B2) 400 mg PO DAILY 90 days sertraline 100 mg PO BEDTIME tobramycin-dexamethasone 0.3-0.1 % (TobraDex) ophthalmic (eye) TID tobramycin-dexamethasone 0.3-0.1 % 1 drp ophthalmic (eye) TID zolmitriptan take 1 tab at onset of headache; if no relief, may repeat 1 tab after at least 2 hrs; max = 2 tabs/24 hrs PO zolmitriptan Take one 5mg by mouth at the onset of migraine headache, may take one additional tablet within 2 hours if the migraine does not abort. Do not take more than 4 tablets in a 24 hour period. HPI Comments Details: Patient is a 75-year-old Libyan speaking female with dementia, neuropathy, gait difficulty today she is here for a f/u . Her daughter Michelle helps with interpretation and history today as patient has cognitive deficits.Her daughter is also her [employer] - 8 hrs weekly. she had 2 falls while she was in [place] .she was hospitalized and had home PT. she was in [place] for 2 mths - to see culled fruit packer and PCP. she was also seen by neurologist - tried on carbidopa/levodopa but did not improve and had hallucinations. Interval History: Patient last seen 04/22/[address] Cornelius. At that time she did not feel well and reported bilateral shoulder pain, she received cortisone injections in bilateral shoulder and left knee, for osteoarthritis. She went to PT at [address] for 4 weeks, she continued heat and ice therapy along with massages and could not tolerate the stationary bike as she had difficulty with ankle flexion / extension due to pain, she felt off balance, and she has difficulty ambulating, she is wheel chair bound due to risk of falls. Today Michelle brings her in to review results from her recent MRI from [facility], and c/o cognitive deficits, due to STM and LTM loss. She is slow to answer questions, gets confused and needs redirection, and visual cuing repeatedly. She gets lost in conversation and doesn't understand conversations, difficulty with orientation, focusing, reading and writing. She forgets to eat her meals and take medications and or will take medications twice a day if not supervised. She needs help with all her ADLs, such as showering, bathing, dressing, eating, and meals. She sleeps in a bed that is elevated because she has difficulty breathing at night, feels claustrophobic, continues to have panic attacks with visual hallucinations and seeing animals, cats, snakes, dogs, running through her room. She has had falls when ambulating to the bathroom at night with easy bruising. Her mood is irritable at base line she doesn't sleep well at night as she continues to have insomnia and wandering behavior, with incontinence. She has a pacemaker and she sleeps on her r. side predominantly or her back with multiple pillows. Her speech is limited, she has difficulty swallowing food, coughs and chokes, she has trouble with solids not liquids. She continues to drool at night. She has hearing aids and pulls them out because she gets confused as to why she needs to wear them and refuses to wear them. She c/o daily headaches which improve with zolmitriptan, and can develop into a full migraine if not well controlled. She continues to be depressed because of chronic pain and takes sertraline for depression, quetiapine for continued visual hallucinations, denies auditory hallucinations. She takes lorazapem 0.5mg for anxiety as needed along with gabapentin for peripheral neuropathy bilaterally upper extremity and lower extremities. She has constipation at baseline, has tried milk of magnesia, Miralax, Senna, Psylium husk and Linzess. She has CKD with T2DM and continues to have urgency and frequency for the last 10 days, denies hematuria, we discussed dropping off a urine culture to her pcp for antibiotics today. Daughter states that she has been overwhelmed with helping her mom transit from bed to wheel chair and wheel chair to bed. October 2017, MRI Minor subcortical white matter abnormality of doubtful significant, with punctate lesions subcorticate periventricular white matter and 1cm flair hyperintense lesion superior to posterior margin of sylvian tissue with in the subcortical white matter. MRI 07/2024 which did not show any evidence of stroke, she did have mild chronic micro-vascular ischemic changes. MRI 10/2024 No acute infarcts, mass effect, or hemorraghes noted, mild T2 flair hyperintense foci in the white matter most likely reflecting chronich small vessel disease, with mild volume loss. She complains chronic bilateral shoulder and left knee pain, upon ambulating feels off balance, had 4 sessions of Physical therapy, continues to be off balance. [facility] Medical History Hallucinations Dementia Pacemaker Tendonitis of both rotator cuffs Hypertension CKD (chronic kidney disease) Type 2 diabetes mellitus Osteoarthritis of knee Surgical History History of back surgery History of total right knee replacement (TKR) Family History Father Lung cancer Son Hypertension Brother Prostate cancer Brother Lung cancer Brother Myocardial infarction Social History Household Members: Family Housing: House Are you a primary career services officer to a significant other at home: No Do you presently have visiting nurse or other home services: No 75 years or older and lives alone: No Alcohol intake: never Patient Tobacco Use Status: Never used Tobacco e-Cigarette/Vaping Use: Never Used service: No Current occupational status: retired Review of Systems Neuro Reports Abnormal speech present and Reports confusion Psych Reports confusion Physical Exam Vital Signs: Last Vital Signs Pulse 82 05/06/25 12:41 Resp 15 05/06/25 12:41 BP 142/78 H 05/06/25 12:41 Pulse Ox 98 05/06/25 12:41 Oxygen Delivery Method Room Air 05/06/25 12:41 BMI result Body Mass Index 38.3 Libyan patient, disoriented with confusion and is non verbal, nods when daughter speaks to her. Const General: no acute distress, anxious and confusion Nutritional Appearance: average body habitus Orientation/consciousness: confusion HEENT Face and sinus: Yes normal facial exam and Yes face symmetric Teeth and gingiva: other (Tremor of the tongue) Eyes Pupils: Equal, round and reactive pupils present Resp Effort & Inspection: normal respiratory effort Neuro General: confusion and Unable to assess gait Cranial nerves: Yes CN's II-XII intact bilaterally, Yes Facial sensation intact/muscles of mastication intact, Yes Equal, round and reactive pupils present, Yes Normal accommodation reflex present, Yes Bilaterally intact EOM present, Yes Nystagmus not present, Yes Midline tongue present, Yes Ability to bilaterally rotate head present (Limited ROM to the L>R) and Yes Ability to bilaterally elevate shoulders present (Pain is elicite on shrug) Speech: Abnormal speech present Gait exam (Neuro): Unable to assess gait, Assistive device used and Other gait observations present (Wheelchair bound, uses walker to ambulate at home.) Motor exam (neuro): Normal motor muscle tone present throughout, Abnormal motor strength present (3/5 upper and lower extremity), Pronator motor function present, Tremors during motor activity present (UE bilaterally into the R. hand more pronounced.), Abnormal muscle tone present and Motor abnormalites present Sensory Exam: Upper extremity sensory exam abnormal Psych Appearance: grossly normal Speech and movement: Slowed movement present (Neuro) and Other speech and movement exam findings present (Psych) (nonverbal) Attitude: cooperative Insight: Fair insight present (Psych) Judgement: Fair judgement present (Psych) Assessment & Plan Assessment & Plan (1) Dementia: Comment: mixed, vascular , DLBD Code(s): F03.90 - Unspecified dementia, unspecified severity, without behavioral disturbance, psychotic disturbance, mood disturbance, and anxiety Category: Medical Qualifiers: Dementia type: unspecified type Dementia severity: moderate Dementia behavioral or psychological symptom: with agitation Qualified Code(s): F03.B11 - Unspecified dementia, moderate, with agitation (2) Hallucinations: Code(s): R44.3 - Hallucinations, unspecified Category: Medical (3) Hx of migraines: Code(s): Z86.69 - Personal history of other diseases of the nervous system and sense organs Category: Medical (4) Headache: Code(s): R51.9 - Headache, unspecified Category: Medical Qualifiers: Headache type: cluster Headache chronicity pattern: chronic headache Intractability: intractable Qualified Code(s): G44.021 - Chronic cluster headache, intractable (5) Cognitive impairment: Comment: probable Alzheimer's vs DLBD Code(s): R41.89 - Other symptoms and signs involving cognitive functions and awareness Category: Medical (6) Cognitive impairment: Comment: probable Alzheimer's vs DLBD Code(s): R41.89 - Other symptoms and signs involving cognitive functions and awareness Category: Medical Plan Cognitive decline, alzheimers vs. LBD- Anxiety continue sertraline 100mg PO at bedtime, and Hydroxyzine 25mg PO TID Hallucinations Continue taking Seroquel (Quietapine 25mg PO at bedtime). Supportive care Orders: Referrals [facility] Referral F03.B11 - Unspecified dementia, moderate, with agitation, R44.3 - Hallucinations, unspecified Medications: Refilled quetiapine 1.5tabs qhs orally bedtime; 135 tabs 6RF 90 days sertraline 100 mg PO BEDTIME 30 tabs 6RF memantine 10 mg PO BID 180 tabs 1RF 90 days Coding Level of Care Code Est Pt Level 4 (04539) Complex EM visit Add On G2211 Diagnoses Moderate dementia with agitation, unspecified dementia type F03.B11 Dementia type: unspecified type Dementia severity: moderate Dementia behavioral or psychological symptom: with agitation Hallucinations R44.3 Hx of migraines Z86.69 Intractable chronic cluster headache G44.021 Headache type: cluster Headache chronicity pattern: chronic headache Intractability: intractable Cognitive impairment R41.89
== END 2025-05-06 13:14 | disposition home or self-care (01) ==
LOC: HO.HSMS 12:37
PROVIDERS: PCP Internal Medicine; Visit Provider Psychiatry & Neurology Neurology
DX: F03.B11 Unspecified dementia, moderate, with agitation (principal); R44.3 Hallucinations, unspecified; Z86.69 Personal history of other diseases of the nervous system and sense organs; G44.021 Chronic cluster headache, intractable; R41.89 Other symptoms and signs involving cognitive functions and awareness
CPT/HCPCS: 99214

== ENCOUNTER → 2025-05-06 12:37 | Outpatient (BNVA) | payer MEDICAID, SELFPAY | PROVIDERS: PCP Internal Medicine; Visit Provider Psychiatry & Neurology Neurology | DX: G44.021 Chronic cluster headache, intractable (principal); R44.3 Hallucinations, unspecified; F03.B11 Unspecified dementia, moderate, with agitation; R41.89 Other symptoms and signs involving cognitive functions and awareness; Z86.69 Personal history of other diseases of the nervous system and sense organs | CPT/HCPCS: 99212 ==

== ENCOUNTER 2025-05-18 13:47 | Outpatient (REF) | payer MEDICAID, SELFPAY ==
[2025-05-18 18:12] LABS: Hematocrit 33.9 % (37.0-47.0); Hemoglobin 11.1 g/dl (12.0-16.0); Mean Corpuscular HGB Conc 32.7 g/dl (31.0-35.0); Mean Corpuscular Hemoglobin 28.4 pg (27.0-33.0); Mean Corpuscular Volume 86.7 fL (80.0-98.0); NRBC Abs Auto 0.000 X10*3/uL (0.0-0.012); NRBC Pct Auto 0.0 /100WBC (0.0-0.2); Platelet Count 274 X10*3/uL (160-400); Red Blood Count 3.91 X10*6/uL (4.20-5.50); White Blood Count 8.4 X10*3/uL (4.8-10.8)
[2025-05-18 18:40] LABS: Alanine Aminotransferase 10 U/L (0-31); Albumin Level 3.7 g/dL (3.5-5.0); Alkaline Phosphatase 69 U/L (39-117); Anion Gap 11 (12-20); Aspartate Amino Transferase 29 U/L (5-31); Blood Urea Nitrogen 18 mg/dL (9-16); Calcium 9.0 mg/dL (8.4-10.2); Carbon Dioxide 24 mmol/L (22-29); Chloride 112 mmol/L (96-108); Estimated Glomerular Filt Rate 46; Iron 44 mcg/dL (30-160); Percent Iron Saturation 19 % (15-50); Potassium 3.8 mmol/L (3.3-5.1); Sodium 143 mmol/L (135-145); Total Iron Binding Capacity 236 mcg/dL (228-428); Total Protein 7.2 g/dL (6.5-8.0); Unsaturated Iron Binding 192 ug/dL
[2025-05-18 18:41] LABS: Ferritin 50 ng/mL (10-250)
[2025-05-18 18:57] LABS: Folate 4.1 ng/mL (> or = 4.0); Vitamin B12 633 pg/mL (200-900)
[2025-05-18 19:29] LABS: Free T4 (Free Thyroxine) 0.97 ng/dL (0.71-1.85)
== END 2025-05-18 13:48 | disposition home or self-care (01) ==
LOC: HO.HKASLDS 13:47
PROVIDERS: Physician Assistant Medical; PCP Internal Medicine; Visit Provider Student in an Organized Health Care Education/Training Program
DX: M81.0 Age-related osteoporosis without current pathological fracture (principal); M17.12 Unilateral primary osteoarthritis, left knee; M19.011 Primary osteoarthritis, right shoulder; Z79.899 Other long term (current) drug therapy; M19.012 Primary osteoarthritis, left shoulder; E11.22 Type 2 diabetes mellitus with diabetic chronic kidney disease; N18.30 Chronic kidney disease, stage 3 unspecified; M17.11 Unilateral primary osteoarthritis, right knee; R44.3 Hallucinations, unspecified; F03.90 Unspecified dementia, unspecified severity, without behavioral disturbance, psychotic disturbance, mood disturbance, and anxiety; R51.9 Headache, unspecified; R41.89 Other symptoms and signs involving cognitive functions and awareness; F09 Unspecified mental disorder due to known physiological condition
CPT/HCPCS: 20610; 36415; 80053; 82306; 82607; 82728; 82746; 83090; 83540; 83921; 84439; 84443; 85027; 96372; 99212; J0897; J2003; J3301

== ENCOUNTER 2025-05-18 13:47 | Outpatient (AMB) | payer MEDICAID, SELFPAY ==
--- NOTE | 2025-05-18 13:48 | A.OFFVIS_ITS ---
Vital Signs 05/18/25 13:57 Height 5 ft 2 in BMI Reason not done Patient refused/unable BP 130/82 Blood Pressure Location Rt brachial Position Sitting Pulse 68 Pulse Source Pulse Oximeter Pulse Oximetry (%) 98 Oxygen Delivery Method Room Air Intake Visit Reasons: prolia inj/shoulder inj Intake Note: Patient presents for Prolia injection and bilateral shoulder injections follow up. Patient is also requesting LT knee injection. Mining Helper Required: Yes Mining Helper Language: Wolof Mining Helper Services: Mining Helper Offered & Declined Mining Helper Name: Michelle Finch Information Interpreted: non-clinical & clinical Faro Dealer: Faro Dealer Present (Michelle Finch) Accompanied by: Daughter Allergies oxycodone (From Percocet) Allergy (Unknown, Verified 05/18/25 13:56) Itching morphine Allergy (Intermediate, Uncoded 08/12/24 15:30) itching oxycodone Allergy (Intermediate, Uncoded 08/12/24 15:30) Itching tramadol Allergy (Intermediate, Uncoded 08/12/24 15:30) Itching Medication List - Last Reconciled 05/18/25 by Mindy Cadena MD ammonium lactate 12% appl topical BID atorvastatin 40 mg PO DAILY blood sugar diagnostic (FreeStyle Lite Strips) As directed bumetanide 1 mg PO Q OTHER DAY cholecalciferol (vitamin D3) 50 mcg PO QAM clotrimazole 1% appl topical BID cyanocobalamin (vitamin B-12) 100 mcg IM Q4W diclofenac sodium 1% (Arthritis Pain (diclofenac)) 2 grams topical QID ergocalciferol (vitamin D2) 1,250 mcg PO QWEEK famotidine (Pepcid) 20 mg PO BID ferrous sulfate 325 mg PO DAILY gabapentin 300 mg PO TID hydrocodone-acetaminophen 5-325 mg 1 tab PO Q6H PRN hydroxyzine HCl 25 mg PO TID PRN indapamide 2.5 mg PO BEDTIME lactulose 20 grams PO TID lancets (FreeStyle Lancets) As directed lidocaine 5% 1 patch topical DAILY linaclotide (Linzess) 290 mcg PO DAILY lorazepam 0.5 mg PO ONCE PRN losartan 25 mg PO DAILY loteprednol etabonate 0.5% (Lotemax) 1 appl ophthalmic (eye) QPM magnesium oxide 400 mg PO DAILY 90 days melatonin 3 mg PO BEDTIME 90 days memantine 10 mg PO BID 90 days multivitamin with folic acid 400 mcg (Daily-Nohemy (with folic acid)) 1 tab PO DAILY ondansetron HCl 4 mg PO Q8H PRN pioglitazone (Actos) 30 mg PO BID potassium chloride ER 10 mEq PO BID quetiapine 1.5tabs qhs orally bedtime; 90 days repaglinide 2 mg PO BID riboflavin (vitamin B2) 400 mg PO DAILY 90 days sertraline 100 mg PO BEDTIME tobramycin-dexamethasone 0.3-0.1 % (TobraDex) ophthalmic (eye) TID tobramycin-dexamethasone 0.3-0.1 % 1 drp ophthalmic (eye) TID zolmitriptan take 1 tab at onset of headache; if no relief, may repeat 1 tab after at least 2 hrs; max = 2 tabs/24 hrs PO zolmitriptan Take one 5mg by mouth at the onset of migraine headache, may take one additional tablet within 2 hours if the migraine does not abort. Do not take more than 4 tablets in a 24 hour period. HPI Comments Details: Patient is a 75-year-old female with hyperlipidemia, hypertension, fibromyalgia, osteoporosis and polyarticular osteoarthritis here today for follow up Interval History: Patient last seen 09/10/24 with tx - On Prolia 60mg SC every 6 months - Today she is here with daughter - Daughter states that she has been having overwhelming fatigue and weakness. Feels that her upper body and lower body is weak. - Had recent MRI 07/2024 which did not show any evidence of stroke just chronic microvascular changes. - Complains of bilateral shoulder and left knee pain - Also complaining of easy bruising - Given bilateral subacromial bursa injections - Also received prolia injection Today - On Prolia 60mg SC every 6 months - Daughter acting as emt - Steroid injection has 60-70% effect with improvement in pain but same returned - Having a lot of left knee instability, has fallen 3 times - Was in [place] and had several imaging studies done including neck, shoulders and knees. Showing significant degenerative disease. Not a candidate for surgery - Had PT in [place] for 3 months and did not have any improvement - Daughter inquiring about additional therapies including PRP, gel injections, etc Rheumatologic History: OA Osteoporosis Current Rheumatology Medication(s): Prolia 60 mg SC every 6 months [facility] Medical History Hallucinations Dementia Pacemaker Tendonitis of both rotator cuffs Hypertension CKD (chronic kidney disease) Type 2 diabetes mellitus Osteoarthritis of knee Surgical History History of back surgery History of total right knee replacement (TKR) Family History Father Lung cancer Son Hypertension Brother Prostate cancer Brother Lung cancer Brother Myocardial infarction Social History Household Members: Family Housing: House Are you a primary resident care coordinator to a significant other at home: No Do you presently have visiting nurse or other home services: No 75 years or older and lives alone: No Alcohol intake: never Patient Tobacco Use Status: Never used Tobacco e-Cigarette/Vaping Use: Never Used service: No Current occupational status: retired Review of Systems Narrative Review of Systems Constitutional: Denies fever, chills, weight loss ENT: Denies vision changes, eye pain or eye redness, dental caries, dry mouth GI: Denies nausea, vomiting, diarrhea, abdominal pain, change in BM Pulm: Denies SOB, YOON, hemoptysis, wheezing Cards: Denies chest pain, palpitations Skin: Denies Raynaud's, rash, nail changes, photosensitivity, FORECLOSURE HOME INSPECTOR: Denies headaches, weakness, paresthesias, recurrent falls MSK: as per HPI All other systems reviewed and are unremarkable except noted above Physical Exam Exam Exam: Vital signs reviewed Physical Examination CONSTITUITIONAL Patient alert and cooperative. Frail Examined in wheel chair MSK Hands * Right Hand: Able to make a fist. No swelling or tenderness to palpation of the MCPs, PIPs or DIPs. * Left Hand: Able to make a fist. No swelling or tenderness to palpation of the MCPs, PIPs or DIPs. * Herbedens nodes noted bilaterally Wrists * Right Wrist: Full ROM to flexion and extension. No swelling or TTP * Left Wrist: Full ROM to flexion and extension. No swelling or TTP Elbows * Right Elbow: Full ROM. No swelling or TTP. No TTP of the medial epicondyle. No TTP of the lateral epicondyle * Left Elbow: Full ROM. No swelling or TTP. No TTP of the medial epicondyle. No TTP of the lateral epicondyle Shoulders * Right shoulder: No swelling noted. No TTP of the AC joint. TTP of the subacromial bursa. No TTP of the posterior shoulder * Left shoulder: No swelling noted. No TTP of the AC joint. TTP of the subacromial bursa. No TTP of the posterior shoulder * Decreased ROM bilaterally Knees * Right knee: Decreased ROM. No swelling noted. No TTP of the knee joint line. No TTP of pes anserine bursa * Left knee: Decreased ROM. Mild swelling. TTP of the knee joint line. No TTP of pes anserine bursa. Crepitations felt Ankles * Right ankle: Good ankle dorsiflexion and plantar flexion. No swelling. No TTP of the ankle joint * Left ankle: Good ankle dorsiflexion and plantar flexion. No swelling. No TTP of the ankle joint Feet * Right foot: Negative squeeze test * Left foot: Negative squeeze test Tender points? * No tenderness to palpation of the bilateral trapezius, supraspinatus, anterior costochondral junctions, bilateral suboccipital muscle insertions SKIN Ecchymosis noted Lipodermatosclerosis Vital Signs: Last Vital Signs Pulse 68 05/18/25 13:57 BP 130/82 05/18/25 13:57 Pulse Ox 98 05/18/25 13:57 Oxygen Delivery Method Room Air 05/18/25 13:57 Office Procedures AMB Joint Injection/Aspiration Joint Injection/Aspiration Details: Procedure was explained to the patient and informed consent was obtained. ? Risks associated with the procedure were discussed with the patient including but not limited to bleeding, infection, drug reactions and reactions to the topical anesthetic. Patient made aware of signs to look out for infectious complications. The area of interest was identified and confirmed with patient. ?This was subsequently cleaned with chlorhexidine x 2. ? The area was then anesthetized using ethyl chloride spray. 40 mg Kenalog with 1 cc 1% lidocaine was injected without issue. ?Minimal to no bleeding. ?Patient tolerated procedure. Primary Site: left shoulder Prep: site was prepped using aseptic technique and ethochloride spray was applied Injected: 40 mg of, Kenalog, with 1 mL of and 1% plain lidocaine Procedure: The patient tolerated the procedure well Coding 90276 - Glenohumeral/Tronchanteric Bursa/Intraarticular Procedure code (CPT) selection complete AMB Joint Injection/Aspiration Joint Injection/Aspiration Details: Procedure was explained to the patient and informed consent was obtained. ? Risks associated with the procedure were discussed with the patient including but not limited to bleeding, infection, drug reactions and reactions to the topical anesthetic. Patient made aware of signs to look out for infectious complications. The area of interest was identified and confirmed with patient. ?This was subsequently cleaned with chlorhexidine x 2. ? The area was then anesthetized using ethyl chloride spray. 40 mg Kenalog with 1 cc 1% lidocaine was injected without issue. ?Minimal to no bleeding. ?Patient tolerated procedure. Primary Site: right shoulder Prep: site was prepped using aseptic technique and ethochloride spray was applied Injected: 40 mg of, Kenalog, with 1 mL of, 1% plain lidocaine and in the subcromial space Coding 31929 - Glenohumeral/Tronchanteric Bursa/Intraarticular Procedure code (CPT) selection complete AMB Joint Injection/Aspiration Joint Injection/Aspiration Details: Procedure was explained to the patient and informed consent was obtained. ? Risks associated with the procedure were discussed with the patient including but not limited to bleeding, infection, drug reactions and reactions to the topical anesthetic. Patient made aware of signs to look out for infectious complications. The area of interest was identified and confirmed with patient. ?This was subsequently cleaned with chlorhexidine x 2. ? The area was then anesthetized using ethyl chloride spray. 40 mg Kenalog with 1 cc 1% lidocaine was injected without issue. ?Minimal to no bleeding. ?Patient tolerated procedure. Primary Site: left knee Prep: site was prepped using aseptic technique and ethochloride spray was applied Injected: 40 mg of, Kenalog, with 1 mL of and 1% plain lidocaine Coding 27034 - Large joint Procedure code (CPT) selection complete Office Meds Prolia 60 mg/mL subcutaneous syringe Performing Provider: Mindy Cadena MD Performing Location: [facility] Administered by: Dina Garcia RN on 05/18/25 14:24 Dose Route Admin Location Dispensed Lot Number Expiration Date NDC Service Dog Trainer 60 mg subcut left posterior arm 1 mL [id number] 09/26/27 18529-896-97 [employer] Total Dispensed Waste 1 mL 0 % Comments: pt received prolia injection in left posterior arm. injection site was warm, dry, and intact. no previous adverse reactions. pt aware to call office if they are experiencing any adverse reactions. lidocaine (PF) 10 mg/mL (1 %) injection solution Performing Provider: Mindy Cadena MD Performing Location: [facility] [place] [facility] Administered by: Dina Garcia RN on 05/18/25 15:44 Dose Route Admin Location Dispensed Lot Number Expiration Date ND Service Dog Trainer 1 mL Infiltration left subacromial bursa 2 mL [id number] 12/26/26 [phone] FRESENIUS KABI Total Dispensed Waste 2 mL 50 % Kenalog 40 mg/mL suspension for injection Performing Provider: Mindy Cadena MD Performing Location: [facility] [place] [facility] Administered by: Dina Garcia RN on 05/18/25 15:44 Dose Route Admin Location Dispensed Lot Number Expiration Date FORMERLY NAMED [facility] Service Dog Trainer 40 mg intrabursal left subacromial bursa 1 mL [id number] 01/25/27 [phone] [employer] Total Dispensed Waste 1 mL 0 % lidocaine (PF) 10 mg/mL (1 %) injection solution Performing Provider: Mindy Cadena MD Performing Location: [facility] [place] [facility] Administered by: Dina Garcia RN on 05/18/25 15:44 Dose Route Admin Location Dispensed Lot Number Expiration Date FORMERLY NAMED [facility] Service Dog Trainer 1 mL Infiltration right subacromial bursa 2 mL [id number] 12/26/26 63 [phone] FRESENIUS KABI Total Dispensed Waste 2 mL 50 % Kenalog 40 mg/mL suspension for injection Performing Provider: Mindy Cadena MD Performing Location: [facility] [place] [facility] Administered by: Dina Garcia RN on 05/18/25 15:44 Dose Route Admin Location Dispensed Lot Number Expiration Date FORMERLY NAMED [facility] Service Dog Trainer 40 mg intrabursal right subacromial bursa 1 mL [id number] 01/25/27 70 [phone] [employer] Total Dispensed Waste 1 mL 0 % lidocaine (PF) 10 mg/mL (1 %) injection solution Performing Provider: Mindy Cadena MD Performing Location: [facility] [place] Administered by: Dina Garcia RN on 05/18/25 15:44 Dose Route Admin Location Dispensed Lot Number Expiration Date ND Service Dog Trainer 1 mL Infiltration left knee 2 mL [id number] 12/26/26 14199-083-67 CRISTIANO SENIUS KABI Total Dispensed Waste 2 mL 50 % Kenalog 40 mg/mL suspension for injection Performing Provider: Mindy Cadena MD Performing Location: [facility] Administered by: Dina Garcia RN on 05/18/25 15:44 Dose Route Admin Location Dispensed Lot Number Expiration Date FORMERLY NAMED [facility] Service Dog Trainer 40 mg intra-articular left knee 1 mL [id number] 01/25/27 [address]-8 [employer] Total Dispensed Waste 1 mL 0 % Results Reviewed Results Reviewed: Laboratory Tests 03/23/24 10:40 Sodium 143 Potassium 3.4 Chloride 107 Carbon Dioxide 27 BUN 11 Creatinine 0.96 AST 15 ALT 9 25-OH Vitamin D Total 22 L XR 04/2022 FINDINGS/IMPRESSION: Right knee: Status post right knee arthroplasty without evidence of hardware complication. Left knee: Severe osteoarthritis with medial compartment narrowing with bone on bone apposition. There is narrowing of the lateral and patellofemoral compartments and tricompartmental osteophytes. Assessment & Plan Assessment & Plan (1) Frail elderly: Code(s): R54 - Age-related physical debility Plan: #Frail Elderly with severe deconditioning Patient is a 74-year-old frail elderly lady who presents with her daughter for evaluation of polyarticular joint pains and overall weakness. Patient has had brain MRI and other lab investigations which has not found an organic cause of her weakness. I think her weakness is multifactorial, I think she has some depression which causes a lack of motivation to move. I also think that because of her depression and lack of movement she has become severely deconditioned and that much more weak. I do not see an underlying rheumatologic cause for her weakness at this time. No improvement after physical therapy Plan - Recommend physical therapy (2) Osteoporosis: Comment: 11/[address] [facility] T scores: Hip -3.0, LS spine -1.1 Prolia started 07/2023 Code(s): M81.0 - Age-related osteoporosis without current pathological fracture Category: Medical Qualifiers: Osteoporosis type: age-related Presence of current pathological fracture: without current pathological fracture Qualified Code(s): M81.0 - Age- related osteoporosis without current pathological fracture Plan: #Osteoporosis Patient with osteoporosis at the hip. Has had several falls but thankfully no fractures Received Prolia dose today Plan - Labs today: CMP, Vit D - Continue prolia 60mg SC every 6 months - Labs before next prolia: CMP, Vitamin D (3) Osteoarthritis of shoulders, bilateral: Code(s): M19.011 - Primary osteoarthritis, right shoulder; M19.012 - Primary osteoarthritis, left shoulder Category: Medical Qualifiers: Osteoarthritis type: primary Qualified Code(s): M19.011 - Primary osteoarthritis, right shoulder; M19.012 - Primary osteoarthritis, left shoulder Plan: #Bilateral shoulder OA Patient with bilateral shoulder OA S/p bilateral injections to the subacromial bursa (4) Osteoarthritis of left knee: Code(s): M17.12 - Unilateral primary osteoarthritis, left knee Category: Medical Qualifiers: Osteoarthritis type: primary Qualified Code(s): M17.12 - Unilateral primary osteoarthritis, left knee Plan: #Bilateral knee OA S/p Right knee replacement Not a candidate for left knee replacement s/p left knee steroid injection today Plan - RTC 2 months for gel injection - PA for gel one Plan I spent 30 minutes reviewing the record and labs, taking a history, examining the patient, discussing the treatment plan and documenting in the medical record Orders: Orders Comprehensive Met. Panel 6 Months Z79.899 - Other termite renewal inspector (current) drug therapy AMB Joint Injection/Aspiration Today M19.011 - Primary osteoarthritis, right shoulder, M19.012 - Primary osteoarthritis, left shoulder AMB Denosumab Injection Practice Supplied Today M81.0 - Age-related osteoporosis without current pathological fracture Vitamin D 25-OH Total 6 Months Z79.899 - Other termite renewal inspector (current) drug therapy AMB Joint Injection/Aspiration Today M19.011 - Primary osteoarthritis, right shoulder, M19.012 - Primary osteoarthritis, left shoulder AMB Joint Injection/Aspiration Today M17.12 - Unilateral primary osteoarthritis, left knee Coding Level of Care Code Est Pt Level 4 (22174) Complex EM visit Add On G2211 Diagnoses Frail elderly R54 Age-related osteoporosis without current pathological fracture M81.0 Osteoporosis type: age-related Presence of current pathological fracture: without current pathological fracture Primary osteoarthritis of both shoulders M19.011; M19.012 Osteoarthritis type: primary Primary osteoarthritis of left knee M17.12 Osteoarthritis type: primary CPT Codes Coding - Joint 7: 53498 - Glenohumeral/Tronchanteric Bursa/Intraarticular ([id number]) Coding - Joint 7: - Glenohumeral/Tronchanteric Bursa/Intraarticular ([id number]) Coding - Large joint: - Large joint ([id number])
[2025-05-18 13:57] VITALS: BP 130/82; PULSE 68; O2SAT 98
--- OUTSIDE RECORDS SUMMARY | 2025-05-18 18:19 | XMS_ITS | Clinical Summary ---
Author Organization [facility] Address [address] [place] [address] Care Team Providers Care Manager Group Name Role Phone Shilpa Jeffries Primary Care [...] patients) (1 - 1-dose 75+ series) 01/26/2023 Alcohol/Substance Use Screening 07/29/2024 Depression Screening and Follow-Up 07/29/2024 Health Care Proxy Review 07/29/2024 Social Drivers of Health Annual Screening 07/29/2024 COVID-19 Vaccine ( season) 2025 09/15/2021, 12/14/2020, 11/23/2020 Influenza Vaccine (#1) 2025 , 05/06/2020, 07/20/2019, Additional history exists Pneumococcal Vaccine: 50+ Years Completed 06/17/2017, 01/10/2017 Osteoporosis Screening Completed 11/29/2022 Hepatitis B Vaccines Aged Out No long er eligible based on patient's age to complete this topic Procedures * Due to [place] [employer] law, this organization might not be sharing negative HIV tests. Procedure Name Priority Date/Time Associated Diagnosis Comments DEXA BONE DENSITY AXIAL Routine 11/29/2022 2:46 PM EDT Age-related osteoporosis with current pathological fracture, sequela from Last 3 Months or Most Recently Relevant to Health Maintenance Results * Due to [place] [employer] law, this organization might not be sharing [...] section, it is an incomplete radiology report. Please contact the interpreting radiologist or applicable radiology division as soon as possible to obtain the completed interpretation. Workstation ID: [id number] Narrative 11/30/2022 12:47 PM EDT EXAM: BONE MINERAL DENSITY INDICATION: Osteoporosis M80.00XS - I10 - Age-related osteoporosis with current pathological fracture, unspecified site, sequela PROCEDURE: The bone mineral density (BMD) of the spine and proximal right femur was determined using an external X-ray source([employer]). SITE: [facility] FINDINGS: L1-L4: BMD 0.93gm/cm2 T-Score -1.1 Z-score: 1.3 Femoral neck: BMD 0.52gm/cm2 T-Score -3 Z-score: -0.9 The World Health Organization (WHO) defines osteoporosis (as studied in post-menopausal women) as a T value of (-)2.5 or less at any site. Osteopenia is defined by a T value between [...] help protect against falls. Resulting Agency Comment [id number] Procedure Note Jerod Kwan MD - 11/30/2022 EXAM: BONE MINERAL DENSITY INDICATION: Osteoporosis M80.00XS - I10 - Age-related osteoporosis withcurrent pathological fracture, unspecified site, sequela PROCEDURE: The bone mineral density (BMD) of the spine and proximal rightfemur was determined using an external X-ray source([employer]). SITE: [facility] FINDINGS: L1-L4: BMD 0.93gm/cm2 T-Score -1.1 Z-score: [...] possible to obtain thecompleted interpretation. Workstation ID: [id number] Ricky Wynn MD IM DXA PROCEDURES Final Resu lt from Last 3 Months or Most Recently Relevant to Health Maintenance Insurance [facility] [place] [id number] Care Teams Manager Group Relationship Specialty Start Date End Date Shilpa Jeffries PCP - General Internal Medicine 09/20/22
--- OUTSIDE RECORDS SUMMARY | 2025-05-18 18:19 | XMS_ITS | Clinical Summary ---
Author Organization [facility] Address [address] [place] [phone] Phone Care Team Providers Care Manager Mental Health Name Role Phone Shilpa Jeffries MD Primary Care Pr ovider Allergies Active Allergy Reactions Criticality Noted Date Comments Morphine Itching,Rash Low 05/09/2017 Oxycodone Dermatitis,Itching 09/27/2022 Oxycodone-Acetaminophen Itching 03/19/2017 Tramadol Itching 03/19/2017 Tramadol-Acetaminophen Rash Low 09/27/2022 Medications lidocaine-sili cone, adhesive 5 % Cmpk 1 patch, PLACE 1 PATCH ONTO THE SKIN EVERY 24 HOURS.APPLY FOR NO MORE THAN 12 HOURS IN ANY 24 HOUR PERIOD. Active brimonidine (ALPHAGAN) 0.2 % ophthalmic solution 1 Drop 3 times daily. Active gabapentin (NEURONTIN) 300 MG capsule Take 300 mg by mouth 3 (three) times a day. Active sertraline (ZOLOFT) 100 MG tablet Take 100 mg by mouth nightly at bedtime. at bedtime. Active ZOLMitriptan (ZOMIG) 5 MG tablet TAKE 1 TABLET BY MOUTH 1 TIME IF NEEDED FOR MIGRAINE. MAY REPEAT ONCE AFTER 2 HOURS. Active QUEtiapine (SEROQUEL) 25 MG tablet TAKE ONE AND ONE HALF TABLETS BY MOUTH EVERY DAY AT BEDTIME Active potassium chloride (KLOR-CON) 10 MEQ ER tablet Take 10 mEq by mouth daily. Active DAILY-NILO, WITH FOLIC ACID, 400 mcg tablet Take 1 tablet by mouth. 5 Active metroNIDAZOLE (METROCREAM) 0.75 % cream Apply twice daily to rosacea 5 025 Active losartan (COZAAR) 25 MG tablet Take 25 mg by mouth. 5 Active memantine (NAMENDA) 10 MG tablet Take 1 tablet by mouth 2 (two) times a day. 5 Active memantine (NAMENDA XR) 7 mg 24 hr sprinkle capsule take 1 capsule by mouth every day for 90 days Active HYDROcodone-ac etaminophen (NORCO) 5-325 mg per tablet Take 2 tablets by mouth every 6 (six) hours as needed. 5 Active famotidine (PEPCID) 20 MG tablet Take 20 mg by mouth 2 (two) times a day. 4 Active ferrous sulfate 325 mg (65 mg poarch iron) tablet Take 1 tablet by mouth daily. 4 Active ergocalciferol (DRISDOL) 50,000 unit capsule take 1 capsule (50,000 units total) by mouth once weekly Active diclofenac sodium (VOLTAREN) 1 % Gel APPLY 1 APPLICATORFUL TOPICALLY 2 TIMES DAILY. 4 Active cetirizine (ZYRTEC) 10 MG tablet Take 10 mg by mouth. 4 Active cholecalcifero l (VITAMIN D3) 2,000 unit tablet Take 2,000 Units by mouth daily. 3 Active cholecalcifero l (VITAMIN D3) 2,000 unit capsule Take 2,000 Units by mouth every morning. 5 Active clotrimazole (LOTRIMIN) 1 % cream APPLY SPARINGLY TO AFFECTED AREA TWICE A DAY Active FREESTYLE LITE Strp strips use to test twice a day 5 Active amitriptyline (ELAVIL) 25 MG tablet TAKE 1 TABLET BY MOUTH EVERYDAY AT BEDTIME 4 Active fluocinolone acetonide (DERMOTIC) 0.01 % DropIndication s:Ear itch 5 drops by Each Ear route 2 (two) times a day. 20 mL 5 Active linaCLOtide (LINZESS) 290 mcg Cap capsule Take 290 mcg by mouth. 5 025 Encounters Date Type Department Care Team Description 04/26/2025 Telephone [facility] [place] Gl[place] [address] [address] Reyna Mcintyre MD 04/15/2025 Transcribe Orders [facility] [place] Audiology [facility] [address] [address] Joao Peña MD, PhD Sensorineural hearing loss (SNHL), unspecified laterality (Primary Dx) from Last 3 Months Social History Tobacco Use Types Packs/Day Years Used Date Smoking Tobacco: Never Assessed Education Answer Date Recorded Are you interested in more education? Not on david e 10/23/2024 Are you concerned about learning? Not on file 10/23/2024 No 10/23/2024 No 10/23/2024 Digital Access Answer Date Recorded No 10/23/2024 No 10/23/2024 Reliable internet access at home? Not on file 10/23/2024 Device with a working camera? Not on file Comments Unknown Sex and Gender Information Value Date Recorded Sex Assigned at Not on file Legal Sex Female 4:23 PM EDT Gender Identity Not on file Sexual Orientation Not on file Plan of Treatment Health Maintenance Due Date Last Done Comments Adult Td,Tdap Booster 1948 CREATININE LEVEL 1948 POTASSIUM LEVEL 1948 DEPRESSION SCREENING 1960 SMOKING Hx and SMOKELESS TOB ACCO SCREENING 01/26/1961 HEPATITIS C SCREENING 01/26/1966 PNEUMOCOCCAL VACCINES (50+ y ears) (1 of 1 - PCV) 01/26/1998 ZOSTER VACCINES (1 of 2) 01/26/1998 RSV VACCINE (1 - 1-dose 75+ series) 01/26/2023 INFLUENZA VACCINE (#1) 2025 COVID-19 VACCINE (1 - 2024-2 6 season) 2025 LIPID PANEL 08/06/2028 08/06/2023 OSTEOPOROSIS SCREENING INITI AL (ONE-TIME) Completed 11/29/2022 HEPATITIS A VACCINES Aged Out No long er eligible based on patient's age to complete this topic HIB VACCINES Aged Out No longer eligi ble based on patient's age to complete this topic MENINGOCOCCAL VACCINES (ACWY) Aged Out No longer eligible based on patient's age to complete this topic MENINGOCOCCAL VACCINES (B) Aged Out N o longer eligible based on patient's age to complete this topic Medical Devices Not on file Insurance [place] Care Teams Manager Mental Health Relationship Specialty Start Date End Date Shilpa Jeffries MD [address] [place] [phone] PCP - General Internal Medicine 10/23/24 Additional Source Comments The information contained in this document represents components of the legal health record. It is not the complete legal health record.[facility]
--- OUTSIDE RECORDS SUMMARY | 2025-05-18 18:19 | XMS_ITS | Clinical Summary ---
Author Organization [facility] Address [address] [place] [phone] Phone Care Team Providers Care Ticket Printer Name Role Phone Shilpa Jeffries MD Primary [...] TOPICALLY 2 TIMES DAILY. 03/24/20 24 Active multivitamin tablet TAKE 1 TABLET BY MOUTH EVERY DAY 12/12/19 24 Active nystatin-triamcin olone (MYCOLOG II) ointment Apply to affected area [...] HOURS NEEDED FOR ITCHING. 08/23/19 24 Active cholecalciferol (VITAMIN D-3) 50 mcg (2,000 unit) [...] 30 DAYS 08/27/19 23 Active FREESTYLE LANCETS MISC Apply 1 Stick topically 2 times daily. 08/14/19 23 Active blood-glucose meter misc Test Blood Sugar Twice Daily 05/16/20 22 Active acetaminophen (TYLENOL) 325 mg tablet Take 2 Tabs by mouth every 6 hours as needed for Pain for up to 10 days. 11/04/19 Active brimonidine (ALPHAGAN) 0.2 % ophthalmic solution 1 Drop 3 times daily. Active cycloSPORINE 0.05 % drops 1 Drop 2 times daily. Active isopropyl alcohoL (Alcoh-Wipe) 70 % towelette Apply 1 Each topically 2 times daily. 07/11/20 17 Active blood-glucose meter kit Test blood [...] day. 180 tablet 1 11/17/19 25 Active multivitamin (Daily-Nohemy, with folic acid,) tabletIndications :Type 2 diabetes mellitus with diabetic cataract ([facility] V24, [facility] V28) Take 1 tablet by mouth 1 (one) time each day. 90 tablet 1 11/17/19 25 Active HYDROcodone-aceta minophen (NORCO) 5-325 mg per tablet Take 2 tablets by mouth every 6 (six) hours if needed for severe pain. Max Daily Amount: 8 tablets 112 tablet 11/17/19 25 Active metroNIDAZOLE (METROCREAM) 0.75 % cream Apply twice daily to rosacea 45 g 2 11/17/19 25 025 Active bumetanide (BUMEX) 1 mg tablet Take 1 tablet (1 mg total) by mouth 1 (one) time each day. 90 each 3 12/17/19 25 026 Active losartan (COZAAR) 50 mg tablet Take 1 tablet (50 mg total) by mouth 1 (one) time each day. 90 each 3 12/17/19 25 026 Active blood sugar diagnostic (FreeStyle Lite Strips) test stripIndications: Type 2 diabetes mellitus with diabetic cataract ([facility] V24, [facility] V28) USE TO TEST TWICE A DAY 200 strip 2 01/14/20 25 Active potassium chloride (KLOR-CON) 10 mEq CR tabletIndications :Type 2 diabetes mellitus with unspecified complications ([facility] V24, [facility] V28) TAKE 1 TABLET BY MOUTH EVERY DAY 90 tablet 3 02/08/20 25 Active linaCLOtide (Linzess) 290 mcg capsule Take 1 capsule (290 mcg total) by mouth 1 (one) time each day. 30 capsule 05/04/20 25 026 Active linaCLOtide (Linzess) 290 mcg capsule Take 1 capsule (290 mcg total) by mouth 1 (one) time each day. 90 each 1 11/17/19 25 025 Discontin ued([facility]) Hospital, Clinic, or Other Facility Administered Medication Ordered Dose Route Frequency Start Date End Date Status cyanocobalamin (VITAMIN B-12) injection 1,000 mcgIndications:Vitamin B12 deficiency 1000 mcg IM Every 30 days 08/17/2024 Active Active Problems Problem Noted Date Diagnosed Date Type 2 diabetes mellitus wit h proteinuria ([facility] V24, [facility] V28) 12/16/2024 Non-[place] speaking patient 09/02/2024 Diabetic mononeuropathy asso ciated with type 2 diabetes mellitus ([facility] V24, [facility] V28) 08/14/2023 Chronic pain syndrome 08/14/2023 Physical deconditioning 08/14/2023 Hyperlipidemia 08/14/2023 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 ([facility] V24, [facility] V28) 01/02/2023 Rosacea 05/16/2022 Stage 3a chronic kidney disease ([facility] V24, S/[facility] V28) 10/04/2021 Tendonitis of both rotator cuffs 02/06/2021 COVID-19 virus detected 11/02/2019 Overview (08/12/2024): hosp at [facility] 10/29/19 Positive COVID 03/28/2024 History of [...] Type 2 diabetes mellitus wit h cataract ([facility] V24, [facility] V28) 12/13/2016 Essential hypertension 12/13/2016 Constipation 12/13/2016 Iron deficiency anemia 12/13/2016 Elevated sed rate 12/13/2016 Overview (08/12/2024): Treated with prednisone for question of giant cell arteritis. Biopsy was negative. The CRP never went up much so I don't think this was likely to be PMR or giant cell arteritis. Prednisone tapered off November 2017. Immunizations Immunization Administration Dates Next Due Influenza Quadravalent, MDCK , 0.5ml, with preservative (Flucelvax) 6mo and older 06/17/2017 Influenza trivalent, 0.5mL ( Fluad) 65yo and older 04/27/2024,04/25/2021,05/06/2020,07/20,05/09/2018 SHEEX SARS-CoV-2 COVID-19, mRNA, LNP-S, preservative free 12/14/2020,11/23/2020 [...] complication, without long-term current use of insulin ([facility] V24, [facility] V28) 12/13/2016 DX:Type 2 diabetes mellitus with complication, without long-term current use of insulin ([facility]) Essential hypertension 12/13/2016 DX:Essent ial hypertension Constipation 12/13/2016 DX:Constipation Chronic pain of both knees 12/13/2016 DX:Ch ronic pain of both knees Chronic right shoulder pain 12/13/2016 DX:C hronic right shoulder pain Iron deficiency anemia 12/13/2016 DX:Iron d eficiency anemia Elevated sed rate 12/13/2016 DX:Elevated se d rate Type 2 diabetes mellitus wit h cataract (CMS/HCC V24, CMS/HCC V28) 12/13/2016 DX:Type 2 diabetes mellitus with cataract (HCC) Amaurosis fugax, both eyes 02/05/2017 DX:Am aurosis fugax, both eyes Osteoarthritis of knees, bilateral 04/25/2017 DX:Osteoarthritis of knees, bilateral Glaucoma DX:Glaucoma COVID-19 virus detected 11/02/2019 DX:COVID -19 virus detected; COMMENT: hosp at [facility] 10/29/19 Family History Medical History Relation [...] Sign Reading Time Taken Comments Blood Pressure 134/78 12/16/2024 3:02 PM EDT Pulse 85 12/16/2024 3:02 PM EDT Temperature 36.7 C (98 F) 12/16/2024 11:24 AM EDT Respiratory Rate - - Oxygen Saturation - - Inhaled Oxygen Concentration - - Weight 92 kg (202 lb 12.8 oz) 12/16/2024 3:02 PM EDT Height 165.1 cm (5' 5 ) 12/16/2024 11:24 AM EDT Body Mass Index 33.75 12/16/2024 11:24 AM EDT Plan of Treatment Upcoming Encounters Date Type Department Care Team (Late st Contact Info) Description 05/31/2025 4:00 PM EST Office Visit Adult Medicine - [place] [address] [place] [phone] Shilpa Jeffries MD [address] [place] [address] 07/14/2025 4:00 PM EST Office Visit Nephrology [address] [phone] Edgar Moreno MD [address] [facility] [address] [place] [phone] Health Maintenance Due Date Last Done Comments Diabetes: Annual Retina Eye Exam 01/26/1958 Zoster Vaccines (1 of 2) 01/26/1967 Falls Risk Assessment 07/07/2022 Social Influencers of Health Screening 07/07/2022 RSV Immunization Adult Patients (1 - 1-dose 75+ series) 01/26/2023 Depression Screening 07/29/2024 Diabetes: Blood Sugar Control Test (HGBA1C) 03/02/2025 09/02/2024, 03/27/2024, 03/27/2024 COVID-19 Vaccine ( season) 2025 09/15/2021, 12/14/2020, 11/23/2020 Influenza Vaccine (#1) 2025 , 04/25/2021, 05/06/2020, Additional history exists Diabetes: Annual Foot Exam 04/27/2025 04/27/2024 Diabetes: Annual Urine Albumin-Creatinine Ratio (uACR) 09/02/2025 09/02/2024, 08/06/2023 Diabetes: Annual GFR (Glomerular Filtration Rate) 12/15/2025 12/15/2024, 09/02/2024, 03/27/2024, Additional history exists Hypertension/CHF/CAD Annual BMP Blood Test 12/15/2025 12/15/2024, 09/02/2024, 03/27/2024, Additional history exists Cholesterol Screening (Lipid Panel) 08/06/2028 08/06/2023 Osteoporosis Screening (Bone Density Screening) 11/29/2032 11/29/2022, 11/29/2022 DTaP,Tdap,and Td Vaccines (2 - Td or Tdap) 04/27/2034 04/27/2024 Pneumococcal Vaccine: 50+ Years Completed 06/17/2017, 01/10/2017 Hepatitis C Screening Completed 04/27/2024 HIB Vaccines Aged Out No longer eligi [...] Procedure Name Priority Date/Time Associated Diagnosis Comments CREATININE, SERUM Routine 12/15/2024 11: 25 AM EDT Stage 3a chronic kidney disease ([facility] V24, [facility] V28) MICROALBUMIN CREATININE URINE RATIO Routine 09/02/2024 11:07 AM EST Chronic kidney disease, stage II (mild) Controlled type 2 diabetes mellitus with diabetic nephropathy ([facility] V24, [facility] V28) Benign hypertensive kidney disease with chronic kidney disease, stage 1-4 or unspecified chronic kidney disease HEMOGLOBIN A1C Routine 09/02/2024 11:07 AM EST Type 2 diabetes mellitus with cataract ([facility] V24, [facility] V28) HEPATITIS C SCREENING Routine 04/27/2024 DIABETES FOOT EXAM Routine 04/27/2024 LIPID PANEL Routine 08/06/2023 from Last 3 Months or Most Recently Relevant to Health Maintenance Results * (ABNORMAL) Creatinine (12/15/2024 11:25 AM EDT) Creatinine 0.99 0.50 - 1.10 mg/dL LAB CHEMISTRY METHOD 12/15/2024 2:39 PM EDT [facility] eGFR 59(L) >=60 mL/min/1. 73m2 LAB CHEMISTRY METHOD 12/15/2024 2:39 PM EDT [facility] Comment:Calculation based on the Chronic Kidney Disease Epidemiology Collaboration (CKD-EPI) equation refit without adjustment for race. Blood Venous blood specimen / Unknown Venipuncture / Unknown 12/15/2024 11:25 AM EDT 12/15/2024 11:25 AM EDT us Edgar Moreno MD LAB BLOOD ORDERABLES Final Resu lt [facility] [address] [place] [address], [place] [phone] * Microalbumin creatinine urine ratio (09/02/2024 11:07 AM EST) Creatinine, Urine 30.0 mg/dL LAB CHEMISTRY METHOD 09/02/2024 6:17 PM EST [facility] Microalb, Ur 6.2 0.0 - 29.0 mg/L LAB CHEMISTRY METHOD 09/02/2024 6:17 PM EST [facility] Microalb/Creat Ratio 21 <30 mg/g creat LAB CHEMISTRY METHOD 09/02/2024 6:17 PM EST [facility] Urine Urine specimen obtained by clean catch procedure / Unknown Non-blood Collection / Unknown 09/02/2024 11:07 AM EST 09/02/2024 11:07 AM EST us Edgar Moreno MD LAB URINE ORDERABLES Final Resu lt [facility] [address] [place] [address], [place] [phone] * Hemoglobin A1c (09/02/2024 11:07 AM EST) [facility] Hemoglobin A1C 5.5 <6.5 % LAB CHEMISTRY METHOD 09/02/2024 7:06 PM EST [facility] Mean Bld Glu Estim. 111 mg/dL LAB CHEMISTRY METHOD 09/02/2024 7:06 PM EST [facility] Blood Venous blood specimen / Unknown Venipuncture / Unknown 09/02/2024 11:07 AM EST 09/02/2024 11:07 AM EST Shilpa Jeffries MD LAB BLOOD ORDERABL ES Final Result Performing Organization Address City/[facility]/ZIP Co de Phone Number [facility] [address] [place] [address], [place] [phone] * Hepatitis C Screening (04/27/2024) [facility] Hepatitis C Screening Abstracted Historical Provider HEALTH MAINTENANCE Final Result * Diabetes Foot Exam (04/27/2024) [facility] Diabetes: Annual Foot Exam Abstracted Historical Provider HEALTH MAINTENANCE Final Result * (ABNORMAL) Lipid panel (08/06/2023) [facility] LDL/HDL Ratio 4 0 - 4 Triglycerides 139 0 - 150 mg/dL Cholesterol 349(A) 0 - 200 mg/dL HDL 80 >=40 mg/dL LDL Cholesterol 242(A) 0 - 100 mg/dL Blood Venous blood specimen / Unknown Historical Provider LAB BLOOD ORDERABLES Sarah l Result from Last 3 Months or Most Recently Relevant to Health Maintenance Insurance MEDICAID - [place] Care Teams Ticket Printer Relationship Specialty Start Date End Date Shilpa Jeffries MD [address] [place] [phone] PCP - General Internal Medicine 12/06/16
--- OUTSIDE RECORDS SUMMARY | 2025-05-18 18:19 | XMS_ITS | Clinical Summary ---
Author Organization [facility] Address [address] [place] [address] Care Team Providers Care Foundation Relations Director Name Role Phone GuzmanAsh dozier [place] Primary Care Provider [phone] Source Comments PLEASE NOTE, if this patient [...] on file Insurance [place] MEDICAID Care Teams Foundation Relations Director Relationship Specialty Start Date End Date [address] [place] [address] PCP - General Nutrition 07/05/17
== END 2025-05-18 15:20 | disposition home or self-care (01) ==
LOC: HO.RHES 13:47
PROVIDERS: PCP Internal Medicine; Visit Provider Student in an Organized Health Care Education/Training Program
DX: M81.0 Age-related osteoporosis without current pathological fracture (principal); M19.011 Primary osteoarthritis, right shoulder; M19.012 Primary osteoarthritis, left shoulder; M17.12 Unilateral primary osteoarthritis, left knee; R54 Age-related physical debility
CPT/HCPCS: 20610; 99214

== ENCOUNTER 2025-07-09 14:27 | Outpatient (AMB) | payer MEDICAID, SELFPAY ==
--- NOTE | 2025-07-09 14:28 | MHC.OFFVIS ---
Vital Signs 07/09/25 14:34 Height 5 ft 2 in BMI Reason not done Patient refused/unable BP 130/74 Blood Pressure Location Lt brachial Position Sitting Pulse 74 Pulse Source Pulse Oximeter Pulse Oximetry (%) 99 Oxygen Delivery Method Room Air Intake Visit Reasons: follow up and gel injection Intake Note: Patient presents today for Gel injection follow up. Quarrying Specialist Required: Yes Quarrying Specialist Language: Indonesian Quarrying Specialist Services: Quarrying Specialist Offered & Declined Quarrying Specialist Name: Michelle Finch Information Interpreted: non-clinical & clinical Skilled Helper: Skilled Helper Present (Michelle Finch) Accompanied by: Daughter Allergies oxycodone (From Percocet) Allergy (Unknown, Verified 07/09/25 14:33) Itching morphine Allergy (Intermediate, Uncoded 08/12/24 15:30) itching oxycodone Allergy (Intermediate, Uncoded 08/12/24 15:30) Itching tramadol Allergy (Intermediate, Uncoded 08/12/24 15:30) Itching HPI Comments Details: Patient is a 75-year-old female with hyperlipidemia, hypertension, fibromyalgia, osteoporosis and polyarticular osteoarthritis here today for follow up Interval History: Patient last seen with oh - On Prolia 60mg SC every 6 months - Daughter acting as is/it project manager - Steroid injection has 60-70% effect with improvement in pain but same returned - Having a lot of left knee instability, has fallen 3 times - Was in [place] and had several imaging studies done including neck, shoulders and knees. Showing significant degenerative disease. Not a candidate for surgery - Had PT in [place] for 3 months and did not have any improvement - Daughter inquiring about additional therapies including PRP, gel injections, etc Today - On Prolia 60mg SC every 6 months - Here today for left knee gel injection Rheumatologic History: OA Osteoporosis Current Rheumatology Medication(s): Prolia 60 mg SC every 6 months [facility] Medical History Hallucinations Dementia Pacemaker Tendonitis of both rotator cuffs Hypertension CKD (chronic kidney disease) Type 2 diabetes mellitus Osteoarthritis of knee Surgical History History of back surgery History of total right knee replacement (TKR) Family History Father Lung cancer Son Hypertension Brother Prostate cancer Brother Lung cancer Brother Myocardial infarction Social History Household Members: Family Housing: House Are you a primary md do resident urgent care to a significant other at home: No Do you presently have visiting nurse or other home services: No 75 years or older and lives alone: No Alcohol intake: never Patient Tobacco Use Status: Never used Tobacco e-Cigarette/Vaping Use: Never Used service: No Current occupational status: retired Review of Systems Narrative Review of Systems MSK: left knee pain All other systems reviewed and are unremarkable except noted above Physical Exam Exam Exam: Vital signs reviewed Physical Examination CONSTITUITIONAL Patient alert and cooperative. Well appearing and in no apparent painful distress HEENT Conjunctiva and sclera clear. No lymphadenopathy. MSK Knees Right knee: Surgical scar noted. No swelling noted. No TTP of the knee joint line. No TTP of pes anserine bursa Left knee: Decreased ROM. No swelling noted. TTP of the knee joint line. No TTP of pes anserine bursa. Vital Signs: Last Vital Signs Pulse 74 07/09/25 14:34 BP 130/74 07/09/25 14:34 Pulse Ox 99 07/09/25 14:34 Oxygen Delivery Method Room Air 07/09/25 14:34 Office Procedures AMB Joint Injection/Aspiration Joint Injection/Aspiration Details: Procedure was explained to the patient and informed consent was obtained. ? Risks associated with the procedure were discussed with the patient including but not limited to bleeding, infection, drug reactions and reactions to the topical anesthetic. Patient made aware of signs to look out for infectious complications. The area of interest was identified and confirmed with patient. ?This was subsequently cleaned with chlorhexidine x 2. ? The area was then anesthetized using ethyl chloride spray. 3cc Gel One was injected without issue. ?Minimal to no bleeding. ?Patient tolerated procedure. Primary Site: Left Knee Prep: site was prepped using aseptic technique and ethochloride spray was applied Injected: Gel One Approach Used: anterior Procedure: The patient tolerated the procedure well Coding 39743 - Large joint Procedure code (CPT) selection complete Office Meds Gel-One 30 mg/3 mL intra-articular syringe Performing Provider: Mindy Cadena MD [place] [facility] Administered by: Mindy Cadena MD on 07/09/25 14:56 Dose Route Admin Location Dispensed Lot Number Expiration Date NDC Booking Police Officer 30 mg intra-articular left knee 3 mL [id number] 01/31/27 04156-62278 ERA, [employer]. Total Dispensed Waste 3 mL 0 % Results Reviewed Results Reviewed: Laboratory Tests 03/23/24 10:40 Sodium 143 Potassium 3.4 Chloride 107 Carbon Dioxide 27 BUN 11 Creatinine 0.96 AST 15 ALT 9 25-OH Vitamin D Total 22 L XR Bilateral Knees 04/2022 FINDINGS/IMPRESSION: Right knee: Status post right knee arthroplasty without evidence of hardware complication. Left knee: Severe osteoarthritis with medial compartment narrowing with bone on bone apposition. There is narrowing of the lateral and patellofemoral compartments and tricompartmental osteophytes. Assessment & Plan Assessment & Plan (1) Osteoarthritis of left knee: Code(s): M17.12 - Unilateral primary osteoarthritis, left knee Category: Medical Qualifiers: Osteoarthritis type: primary Qualified Code(s): M17.12 - Unilateral primary osteoarthritis, left knee Plan: #Left Knee OA Patient is a 75 year female with polyarticular OA here today for left knee gel one injection Plan - S/p gel one injection to left knee - RTC for regular appointment Plan Procedure only Orders: Orders AMB Joint Injection/Aspiration 07/09/25 M17.12 - Unilateral primary osteoarthritis, left knee Coding Level of Care Code Procedure Only Diagnoses Primary osteoarthritis of left knee M17.12 Osteoarthritis type: primary CPT Codes Coding - Large joint: 32140 - Large joint ([id number])
[2025-07-09 14:34] VITALS: BP 130/74; PULSE 74; O2SAT 99
--- OUTSIDE RECORDS SUMMARY | 2025-07-09 19:40 | XMS_ITS | Clinical Summary ---
Author Organization [facility] Address [address] [place] [phone] Phone Care Team Providers Care Channel Marketing Program Manager Name Role Phone Shilpa Jeffries MD [...] cream Apply twice daily to rosacea 5 07/14/20 25 Active losartan (COZAAR) 25 MG tablet Take [...] Active ferrous sulfate 325 mg (65 mg assiniboine and sioux iron) tablet Take 1 tablet by mouth [...] times a day. 20 mL 5 Active Encounters Date Type Department Care Team Description 04/26/[address] [address] Reyna Mcintyre MD 04/15/2025 Transcribe Orders [facility] Audiology [address] [address] Joao Peña MD, PhD Sensorineural hearing loss [...] Orientation Not on file Plan of Treatment Upcoming Encounters Date Type Department Care Team (Late st Contact Info) Description 10/29/2025 11:00 AM EDT Evaluation [facility] Audiology [address] [address] [place] AuD [address] [place] [phone] [email or web address] 10/29/2025 12:00 PM EDT Office Visit [facility] Otology [address] [address] Jaquan Carr MD [address] [place] [phone] [email or web address] 10/29/2025 1:00 PM EDT Office Visit [facility] Optometry [address] [address] Goldie Zurita, OD [address] [place] [phone] [email or web address] 10/29/2025 2:30 PM EDT Appointment [facility] [address] [address] Unknown, MD Justice 10/29/2025 3:20 PM EDT Office Visit [facility] [address] [address] Maciej Rebolledo MD, PhD [address] [place] [address], [address] [place] [address] [email or web address] [facility] Health Maintenance Due Date Last Done Comments [...] topic Medical Devices Not on file [place] [place] [address] [place] Care Teams Channel Marketing Program Manager Relationship Specialty Start Date End Date Shilpa Jeffries MD [address] [place] [phone] PCP - General Internal Medicine 10/23/24 Additional Source Comments The information contained in this document represents components of the legal health record. It is not the complete legal health record.[facility]
--- OUTSIDE RECORDS SUMMARY | 2025-07-09 19:40 | XMS_ITS | Clinical Summary ---
Author Organization [facility] Address [address] [place] [address] Phone Care Team Providers Care Detonator Assembler Name Role Phone Shilpa Jeffries MD Primary Care Prov ider Allergies Active Allergy Reactions Criticality Noted Date Comments Morphine Itching 05/09/2017 Oxycodone Hcl 12/04/2022 Oxycodone-Acetaminophen Itching 03/19/2017 Tramadol Itching 03/19/2017 Medications clotrimazole (LOTRIMIN) 1 % cream APPLY A SMALL AMOUNT TO AFFECTED AREA TWICE A DAY Active gabapentin (NEURONTIN) 300 mg capsule TAKE 1 CAPSULE BY MOUTH THREE TIMES A DAY Active diclofenac (VOLTAREN) 1 % topical gel APPLY 1 APPLICATORFUL TOPICALLY 2 TIMES DAILY. Active multivitamin tablet TAKE 1 TABLET BY MOUTH EVERY DAY Active nystatin-triamci nolone (MYCOLOG II) ointment Apply to affected area BID for up to 2 weeks Active QUEtiapine (SEROquel) 25 mg tablet TAKE 1 TABLET BY MOUTH EVERY DAY AT BEDTIME Active sertraline (ZOLOFT) 100 mg tablet TAKE 1 TABLET BY MOUTH AT BEDTIME Active ferrous sulfate 325 mg (65 mg elemental iron) tablet TAKE 1 TABLET BY MOUTH EVERY DAY Active hydrOXYzine HCL (ATARAX) 25 mg tablet TAKE 1 TABLET BY MOUTH EVERY 6 HOURS NEEDED FOR ITCHING. 024 Active cholecalciferol (VITAMIN D-3) 50 mcg (2,000 unit) tablet Take 1 Tablet by mouth daily. 023 Active memantine (NAMENDA XR) 7 mg extended release capsule Take 1 Capsule by mouth daily. 023 Active denosumab (PROLIA) 60 mg/mL syringe syringe Inject 60 mg into the skin Once. 023 Active ondansetron (ZOFRAN) 4 mg tablet Take 1-2 Tablets by mouth every 8 hours as needed for Nausea. 023 Active calcium carbonate 1,500 mg (600 mg elemental calcium) tablet Take 1 Tablet by mouth 2 times daily (with meals). 023 Active terbinafine (LamISIL) 1 % cream Apply to affected and surrounding area(s) once daily until clinical resolution, typically 1 week 023 Active amitriptyline (ELAVIL) 25 mg tablet TAKE 1 TABLET BY MOUTH EVERYDAY AT BEDTIME Active SUMAtriptan (IMITREX) 50 mg tablet TAKE 1 TABLET AT LEAST 2 HOURS BETWEEN DOSES NEEDED ORALLY ONCE A DAY 30 DAYS 023 Active FREESTYLE LANCETS MISC Apply 1 Stick topically 2 times daily. 023 Active blood-glucose meter misc Test Blood Sugar Twice Daily 022 Active acetaminophen (TYLENOL) 325 mg tablet Take 2 Tabs by mouth every 6 hours as needed for Pain for up to 10 days. Active brimonidine (ALPHAGAN) 0.2 % ophthalmic solution 1 Drop 3 times daily. Active cycloSPORINE 0.05 % drops 1 Drop 2 times daily. Active isopropyl alcohoL (Alcoh-Wipe) 70 % towelette Apply 1 Each topically 2 times daily. 017 Active blood-glucose meter kit Test blood sugar bid 017 Active famotidine (PEPCID) 20 mg tablet Take 1 tablet (20 mg total) by mouth 2 (two) times a day. 180 tablet 1 025 Active multivitamin (Daily-Nohemy, with folic acid,) tabletIndication s:Type 2 diabetes mellitus with diabetic cataract (CMS/[facility] V24, [facility] V28) Take 1 tablet by mouth 1 (one) time each day. 90 tablet 1 Active HYDROcodone-acet aminophen (NORCO) 5-325 mg per tablet Take 2 tablets by mouth every 6 (six) hours if needed for severe pain. Max Daily Amount: 8 tablets 112 tablet Active bumetanide (BUMEX) 1 mg tablet Take 1 tablet (1 mg total) by mouth 1 (one) time each day. 90 each 3 2025 Active losartan (COZAAR) 50 mg tablet Take 1 tablet (50 mg total) by mouth 1 (one) time each day. 90 each 3 2025 Active blood sugar diagnostic (FreeStyle Lite Strips) test stripIndications :Type 2 diabetes mellitus with diabetic cataract ([facility] V24, [facility] V28) USE TO TEST TWICE A DAY 200 strip 2 Active potassium chloride (KLOR-CON) 10 mEq CR tabletIndication s:Type 2 diabetes mellitus with unspecified complications ([facility] V24, [facility] V28) TAKE 1 TABLET BY MOUTH EVERY DAY 90 tablet 3 Active ZOLMitriptan (ZOMIG) 5 mg tablet Take 1 tablet (5 mg total) by mouth 1 (one) time if needed for migraine. May repeat once after 2 hours. 18 tablet 3 2025 Active linaCLOtide (Linzess) 290 mcg capsule Take 1 capsule (290 mcg total) by mouth 1 (one) time each day before breakfast. 30 capsule 5 2025 Active lidocaine (LIDODERM) 5 % patch Apply 1 patch topically 1 (one) time each day. Apply to painful area 12 hours per day, remove for 12 hours. 30 each 2025 Active HYDROmorphone (DILAUDID) 2 mg tablet Take 1 tablet (2 mg total) by mouth every 8 (eight) hours for 28 days. Max Daily Amount: 6 mg 72 tablet 2024 Active prednisoLONE acetate (PRED FORTE) 1 % ophthalmic suspension INSTILL 1 DROP INTO BOTH EYES 4 TIMES A DAY 024 2024 Discontinued sertraline (ZOLOFT) 50 mg tablet at bedtime. 023 2024 Discontinued ketoconazole (NIZORAL) 2 % cream 2 times daily. 023 2024 Discontinued ZOLMitriptan (ZOMIG) 5 mg tablet Take 1 tablet (5 mg total) by mouth 1 (one) time if needed for migraine. May repeat once after 2 hours. 18 tablet 3 025 2024 Discontinued(R eorder) metroNIDAZOLE (METROCREAM) 0.75 % cream Apply twice daily to rosacea 45 g 2 025 2024 Discontinued linaCLOtide (Linzess) 290 mcg capsule Take 1 capsule (290 mcg total) by mouth 1 (one) time each day. 30 capsule 025 2024 Discontinued Linzess 290 mcg capsule TAKE 1 CAPSULE (290 MCG TOTAL) BY MOUTH 1 (ONE) TIME EACH DAY. 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 01/02/2023 Rosacea 05/16/2022 Stage 3a chronic kidney disease 10/04/2021 Tendonitis of both rotator cuffs 02/06/2021 COVID-19 virus detected 11/02/2019 Overview (08/12/2024): hosp at [facility] 10/29/19 Positive COVID 03/28/2024 [...] Encounters Date Type Department Care Team Description 06/15/2025 2:45 PM EST Office Visit Adult Medicine [address] [address] Maciej Pichardo PA Type 2 diabetes mellitus with proteinuria (CMS/HCC V24, CMS/HCC V28) (Primary Dx); Non-Burkinan speaking patient; Physical deconditioning; Vitamin B12 deficiency; Spinal cord stimulator status; Chronic pain syndrome; Primary osteoarthritis of both knees; Constipation, unspecified constipation type; Encounter for immunization from Last 3 Months Immunizations Immunization Administration Dates Next Due Influenza Quadravalent, MDCK , 0.5ml, with preservative (Flucelvax) 6mo and older 06/17/2017 Influenza trivalent, 0.5mL ( Fluad) 65yo and older 06/15/2025,04/27/2024,04/25/2021,05/06,07/20/2019,05/09/2018 Pfizer SARS-CoV-2 COVID-19, mRNA, LNP-S, preservative free [...] complication, without long-term current use of insulin ([facility] V24, [facility] V28) 12/13/2016 DX:Type 2 diabetes mellitus with complication, without long-term current use of insulin ([facility]) Essential hypertension 12/13/2016 DX:Essent ial hypertension Constipation 12/13/2016 DX:Constipation Chronic pain of both knees 12/13/2016 DX:Ch ronic pain of both knees Chronic right shoulder pain 12/13/2016 DX:C hronic right shoulder pain Iron deficiency anemia 12/13/2016 DX:Iron d eficiency anemia Elevated sed rate 12/13/2016 DX:Elevated se d rate Type 2 diabetes mellitus wit h cataract ([facility] V24, [facility] V28) 12/13/2016 DX:Type 2 diabetes mellitus with cataract ([facility]) Amaurosis fugax, both eyes 02/05/2017 DX:Am aurosis fugax, both eyes Osteoarthritis of knees, bilateral 04/25/2017 DX:Osteoarthritis of knees, bilateral Glaucoma DX:Glaucoma COVID-19 virus detected 11/02/2019 DX:COVID -19 virus detected; COMMENT: hosp at [facility] 10/29/19 Family History Medical [...] on file Sexual Orientation Not on file Last Filed Vital Signs Vital Sign Reading Time Taken Comments Blood Pressure 126/85 06/15/2025 2:57 PM EST Pulse 89 06/15/2025 2:57 PM EST Temperature 36.7 C (98.1 F) 06/15/2025 2:57 PM EST Respiratory Rate - - Oxygen Saturation - - Inhaled Oxygen Concentration - - Weight 92.5 kg (204 lb) 06/15/2025 2:57 PM EST Height 165.1 cm (5' 5 ) 06/15/2025 2:57 PM EST Body Mass Index 33.95 06/15/2025 2:57 PM EST Plan of Treatment Upcoming Encounters Date Type Department Care Team (Late st Contact Info) Description 07/14/2025 4:00 PM EST Office Visit Nephrology [address] [phone] Edgar Moreno MD [address] [facility] [address] [place] [address] 07/19/2025 2:30 PM EST Office Visit Adult Medicine - [place] [address] [place] [address] Shilpa Jeffries MD [address] [place] [address] Health Maintenance Due Date Last Done Comments Diabetes: Annual Retina Eye Exam 01/26/1958 Zoster Vaccines (1 of 2) 01/26/1967 Falls Risk Assessment 07/07/2022 Social Influencers of Health Screening 07/07/2022 RSV Immunization Adult Patients (1 - 1-dose 75+ series) 01/26/2023 Depression Screening 07/29/2024 Diabetes: Blood Sugar Control Test (HGBA1C) 03/02/2025 09/02/2024, 03/27/2024, 03/27/2024 COVID-19 Vaccine ( season) 2025 09/15/2021, 12/14/2020, 11/23/2020 Diabetes: Annual Foot Exam 04/27/2025 04/27/2024 Diabetes: [...] C Screening Completed 04/27/2024 Influenza Vaccine Completed 06/15/2025, , 04/25/2021, Additional history exists HIB Vaccines Aged Out [...] Procedure Name Priority Date/Time Associated Diagnosis Comments EXTERNAL CLINICAL LAB 05/24/2025 EXTERNAL CLINICAL LAB 05/18/2025 EXTERNAL CLINICAL LAB 05/18/2025 CREATININE, SERUM Routine 12/15/2024 11: 25 AM EDT Stage 3a chronic kidney disease ([facility] V24, [facility] V28) MICROALBUMIN CREATININE URINE RATIO Routine 09/02/2024 11:07 AM EST Chronic kidney disease, stage II (mild) Controlled type 2 diabetes mellitus with diabetic nephropathy ([facility] V24, [facility] V28) Benign hypertensive kidney disease with chronic kidney disease, stage 1-4 or unspecified chronic kidney disease HEMOGLOBIN A1C Routine 09/02/2024 11:07 AM EST Type 2 diabetes mellitus with cataract ([facility] V24, [facility] V28) HEPATITIS C SCREENING Routine 04/27/2024 DIABETES FOOT EXAM Routine 04/27/2024 LIPID PANEL Routine 08/06/2023 from Last 3 Months or Most Recently Relevant to Health Maintenance Results * External clinical lab (05/24/2025) Only the most recent of3 resultswithin the time period is included. us Provider [facility] LAB BLOOD ORDERABLES Fin al Result * (ABNORMAL) Creatinine (12/15/2024 11:25 AM EDT) Creatinine 0.99 0.50 - 1.10 mg/dL LAB CHEMISTRY METHOD 12/15/2024 2:39 PM EDT [facility] eGFR 59(L) >=60 mL/min/1. 73m2 LAB CHEMISTRY METHOD 12/15/2024 2:39 PM EDT [facility] Comment:Calculation based on the Chronic Kidney Disease Epidemiology Collaboration (CKD-EPI) equation refit without adjustment for race. Blood Venous blood specimen / Unknown Venipuncture / Unknown 12/15/2024 11:25 AM EDT 12/15/2024 11:25 AM EDT us Edgar Moreno MD LAB BLOOD ORDERABLES Final Resu lt [facility] [address] [place] [address], [place] [phone] * Microalbumin creatinine urine ratio (09/02/2024 11:07 AM EST) Creatinine, Urine 30.0 mg/dL LAB CHEMISTRY METHOD 09/02/2024 6:17 PM EST [facility] Microalb, Ur 6.2 0.0 - 29.0 mg/L LAB CHEMISTRY METHOD 09/02/2024 6:17 PM EST [facility] Microalb/Creat Ratio 21 <30 mg/g creat LAB CHEMISTRY METHOD 09/02/2024 6:17 PM EST [facility] Urine Urine specimen obtained by clean catch procedure / Unknown Non-blood Collection / Unknown 09/02/2024 11:07 AM EST 09/02/2024 11:07 AM EST us Edgar Moreno MD LAB URINE ORDERABLES Final Resu lt [facility] [address] [place] [address], [place] [phone] * Hemoglobin A1c (09/02/2024 11:07 AM EST) Hemoglobin A1C 5.5 <6.5 % LAB CHEMISTRY METHOD 09/02/2024 7:06 PM EST [facility] Mean Bld Glu Estim. 111 mg/dL LAB CHEMISTRY METHOD 09/02/2024 7:06 PM EST [facility] Blood Venous blood specimen / Unknown Venipuncture / Unknown 09/02/2024 11:07 AM EST 09/02/2024 11:07 AM EST Shilpa Jeffries MD LAB BLOOD ORDERABL ES Final Result [facility] [address] [place] [address], * Hepatitis C Screening (04/27/2024) Pathologist [facility] Hepatitis C Screening Abstracted Historical Provider HEALTH MAINTENANCE Final Result * Diabetes Foot Exam (04/27/2024) Pathologist [facility] Diabetes: Annual Foot Exam Abstracted Historical Provider HEALTH MAINTENANCE Final Result * (ABNORMAL) Lipid panel (08/06/2023) Pathologist [facility] LDL/HDL Ratio 4 0 - 4 Triglycerides 139 0 - 150 mg/dL Cholesterol 349(A) 0 - 200 mg/dL HDL 80 >=40 mg/dL LDL Cholesterol 242(A) 0 - 100 mg/dL Blood Venous blood specimen / Unknown Historical Provider LAB BLOOD ORDERABLES Sarah l Result from Last 3 Months or Most Recently Relevant to Health Maintenance Insurance MEDICAID - [place] Care Teams Detonator Assembler Relationship Specialty Start Date End Date Shilpa Jeffries MD [address] [place] [phone] PCP - General Internal Medicine 12/06/16
--- OUTSIDE RECORDS SUMMARY | 2025-07-09 19:40 | XMS_ITS | Clinical Summary ---
Author Organization [facility] Address [address] [place] [address] Care Team Providers Care Head Butler Name Role Phone Shilpa Jeffries Primary Care [...] Screening 07/29/2024 Depression Screening and Follow-Up 07/29/2024 Fall Risk Screening 07/29/2024 Health Care Proxy Review 07/29/2024 Social Drivers of Health Annual Screening 07/29/2024 Influenza Vaccine (#1) 2025 , 05/06/2020, 07/20/2019, Additional history exists COVID-19 Vaccine ( season) 2025 09/15/2021, 12/14/2020, 11/23/2020 Pneumococcal Vaccine: 50+ Years Completed 06/17/2017, 01/10/2017 Osteoporosis Screening Completed 11/29/2022 Hepatitis B Vaccines Aged Out No long er eligible based on patient's age to complete this topic Procedures * Due to [place] [employer] law, this organization might not be sharing negative HIV tests. Procedure Name Priority Date/Time Associated Diagnosis Comments DEXA BONE DENSITY AXIAL Routine 11/29/2022 2:46 PM EDT Age-related osteoporosis with current pathological fracture, sequela from Last 3 Months or Most Recently Relevant to Health Maintenance Results * Due to [place] [employer] law, this organization might not be sharing [...] to obtain the completed interpretation. Workstation ID: [id number] Narrative 11/30/2022 12:47 PM EDT EXAM: BONE MINERAL DENSITY INDICATION: Osteoporosis M80.00XS - I10 - Age-related osteoporosis with current pathological fracture, unspecified site, sequela PROCEDURE: The bone mineral density (BMD) of the spine and proximal right femur was determined using an external X-ray source([facility]). SITE[facility] FINDINGS: L1-L4: BMD 0.93gm/cm2 T-Score -1.1 Z-score: [...] help protect against falls. Resulting Agency Comment [id number] Procedure Note Jerod Kwan MD - 11/30/2022 EXAM: BONE MINERAL DENSITY INDICATION: Osteoporosis M80.00XS - I10 - Age-related osteoporosis withcurrent pathological fracture, unspecified site, sequela PROCEDURE: The bone mineral density (BMD) of the spine and proximal rightfemur was determined using an external X-ray source([facility]). SITE: [place] FINDINGS: L1-L4: BMD 0.93gm/cm2 T-Score -1.1 Z-score: [...] possible to obtain thecompleted interpretation. Workstation ID: [id number] Ricky Wynn MD IM DXA PROCEDURES Final Resu lt from Last 3 Months or Most Recently Relevant to Health Maintenance Insurance [facility] [address] Care Teams Head Butler Relationship Specialty Start Date End Date Shilpa Jeffries PCP - General Internal Medicine 09/20/22
== END 2025-07-09 15:07 | disposition home or self-care (01) ==
LOC: HO.RHES 14:28
PROVIDERS: PCP Internal Medicine; Visit Provider Student in an Organized Health Care Education/Training Program
DX: M17.12 Unilateral primary osteoarthritis, left knee (principal)
CPT/HCPCS: 20610

== ENCOUNTER → 2025-07-09 14:27 | Outpatient (BNVA) | payer MEDICAID, SELFPAY | PROVIDERS: PCP Internal Medicine; Visit Provider Student in an Organized Health Care Education/Training Program | DX: M17.12 Unilateral primary osteoarthritis, left knee (principal) | CPT/HCPCS: 20610; J7326 ==